=== PATIENT | female | born 2000 | race Caucasian/White ===

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

== ENCOUNTER 2024-10-29 04:30 | Inpatient (IN) ==
--- OUTSIDE RECORDS SUMMARY | 2024-10-29 04:38 | External Medical Summary | Summary of Care ---
Author Name Unknown Organization [facility] Address [address] [place] [address] Phone [phone] Care Team Providers Care Crisis Specialist Name Role Phone Unavailable Primary Care Provider Unavailabl e Reason for Visit * Reason Comments Return Visit [id number] Encounter Details Date Type Department Care Team (Late st Contact Info) Description 10/17/2024 11:45 AM EDT Office Visit Gynecology/Obstetric s [facility] [address] [facility] [place] [address] Nika Carlson CNM [address] [facility] [phone] Supervision of normal first , antepartum*; Antepartum anemia complicating ; Other vitamin B12 deficiency anemia Allergies Active Allergy Reactions Criticality Noted Date Comments Penicillin G Benzathine 04/22/2020 documented as of this encounter (statuses as of 10/17/2024) Medications Proventil HFA 108 (90 Base) MCG/ACT Inhalation Aerosol SolutionIndication s:Upper respiratory tract infection, unspecified type,Viral upper respiratory tract infection with cough Inhale 2 Puffs by mouth every 4 hours as needed for Congestion, Cough or Wheezing. 18 g 05/30/20 22 Active Additional Information Patient not taking.Reported on 10/10/2024 Polyethylene Glycol 3350 17 GM/SCOOP Oral Powder (Miralax) Take 17 g by mouth daily as needed for Constipation. 04/08/20 22 Active 27-0.8 MG Oral Tablet Take 1 Tablet by mouth daily at noon. Active Breast PumpIndications:Nolasco pervision of normal first , antepartum Z39.1 status of mother EDC 11/02/24 1 Each 08/13/19 Active Ondansetron 4 MG Oral Tablet Disintegrating (Zofran)Indication s:Nausea and vomiting, unspecified vomiting type Place 1 Tablet on tongue every 8 hours as needed for Nausea. dissolve on tongue. 20 Tablet 1 08/27/19 25 Active Iron (Ferrous Sulfate) 325 (65 Fe) MG Oral Tablet Take 1 Tablet by mouth in the morning. 90 Tablet 1 08/29/19 25 Active Docusate Sodium 100 MG Oral Capsule (Colace) Take 1 Capsule by mouth in the morning and 1 Capsule before bedtime. 10 Capsule 08/29/19 25 Active Vitamin B-12 1000 MCG Oral Tablet (Cyanocobalamin)In dications:Other vitamin B12 deficiency anemia Take 1 Tablet by mouth in the morning. 30 Tablet 5 10/18/19 25 Active documented as of this encounter (statuses as of 10/17/2024) Active Problems Problem Noted Date Diagnosed Date Absolute anemia 10/17/2024 Iron deficiency anemia 08/30/2024 Antepartum anemia complicating 025 Overview (08/15/2024): Third tri labs Hgb 10.1, ferritin 5 Recommend IV iron Menstrual migraine with status migrainosus, not intractable 07/20/2024 Migraine without aura and wi th status migrainosus, not intractable 07/20/2024 Supervision of normal first , antepartu 04/13/2024 MICHAEL (generalized anxiety disorder) 10/01/2020 Estimated Date of Delivery Comme nts Yes 11/02/2024 Based on Ultraso und documented as of this encounter (statuses as of 10/17/2024) Resolved Problems Problem Noted Date Diagnosed Date Resolved Date Migraine with aura 10/29/2021 Mastitis of left breast unre lated to or 10/20/2018 10/20/2018 Passive smoke exposure 11/23/201310/01 Other allergic rhinitis 11/23/201309/03 Overview (04/26/2017): ICD-10 update of inactive term Routine child health exam 2000 VACCIN FOR DISEASE NEC 08/31/200007/17 documented as of this encounter (statuses as of 10/17/2024) Immunizations Name Administration Dates Next Due DTaP Dipth/Tet/Acell Pertussis (Infanrix), Peds 11/05/2005 H1N1 2009 Influenza, Intranasal 07/08/2009,04/28 HPV Vaccine, 4-Valent 04/23/2013,01/01/2013,10/03 IPV - Polio Virus Vaccine (Inact) 11/05/2005 Influenza Vaccine, Live, Int ranasal, Trivalent (Flumist) 06/13/2012,06/08/2011 MMR - Measles/Mumps/Rubella Vaccine 11/05/2005 Meningococcal B, 2/3-Dose Series (TRUMENBA) 03/2021 Meningococcal Conjugate Vacc ine (Menactra/Menveo) 07/08/2017,10/19/2011 Seasonal Influenza Vac., MDV , IM, 0.5 mL (Fluzone) 04/23/2013,04/28/2009,06/08/2007 Seasonal Influenza, Quadriva lent, No Preserve, IM 04/16/2019 TDAP (age 10 and older)(Boostrix) 10/16/2018 TDAP, Age 7 and older, IM (Adacel) 10/19/2011 Varicella Vaccine (Chicken Pox) 01/30/2009 documented as of this encounter Social History Tobacco Use Types Packs/Day Years Used Date Smoking Tobacco: Never Smokeless Tobacco: Never Alcohol Use Standard Drinks/Week Comments Not Currently 0 (1 standard drink = 0.6 oz pur e alcohol) PHQ-2 Answer Date Recorded PHQ Adult Total Score 0 09/19/2020 Hunger Vital Sign Answer Date Recorded Within the past 12 months, y ou worried that your food would run out before you got the money to buy more. Never true 06/04/20 24 Within the past 12 months, t he food you bought just didn't last and you didn't have money to get more. Never true 06/04/2024 [place] Depression Scale Answer Date Recorded [place] Depression Scale Total 3 09/11/2024 The thought of harming myself has occurred to me . Never 09/11/2024 Childcare Answer Date Recorded Do you feel overwhelmed with taking care of a child, family member or friend? No 06/04/2024 Does your family need help f inding childcare? (Household - for ages 0-17 years) Not on file 06/04/2024 Clothing Answer Date Recorded Have you been unable to get clothing when it was really needed? No 06/04/2024 Is your family able to get c lothes or diapers when needed? (Household - for ages 0-17 years) Not on file 06/04/2024 Personal Safety Answer Date Recorded Do you feel unsafe or have concerns for your saf ety? No 06/04/2024 Do you have concerns for you r family's safety? (Household - for ages 0-17 years) Not on file 06/04/2024 Utilities Answer Date Recorded Do you have trouble paying y our heating, water, or electric bill? No 06/04/2024 Is your family able to pay t he heat, water, or electric bill? (Household - for ages 0-17 years) Not on file 06/04/2024 Does your family have access to good internet? (Household - for ages 0-17 years) Not on file 06/04/2024 Employment Status Answer Date Recorded Are you unemployed or without regular income? No 06/04/2024 Does the household have a re lar source of income? (Household - for ages 0-17 years) Not on file 06/04/2024 Social Connections Answer Date Recorded How often do you feel lonely or isolated from th ose around you? Never 06/04/2024 Financial Resource Strain Answer Date R ecorded Do you have any trouble payi ng for your medications, or do you think you might in the future? No 06/04/2024 Does your family have troubl e paying for medicine? (Household - for ages 0-17 years) Not on file 06/04/2024 Transportation Needs Answer Date Record ed Do you have trouble getting a ride to medical visits or work? (Adult - for ages 18 years and over) Not on file 06/04/2024 Does your family have a hard time getting a ride to doctors visits? (Household - for ages 0-17 years) Not on file 06/04/2024 Has lack of transportation k ept you from medical appointments, meetings, work, or from getting things needed for daily living? Check all that apply. No 06/04/2024 Do you (or your family) have trouble finding or paying for a ride (transportation)? (Household - for ages 0-17 years) Not on file 06/04/2024 Housing Stability Answer Date Recorded Do you currently live in a s helter or have no steady place to sleep at night? No 06/04/2024 Do you think you are at risk of becoming homeless? (Adult - for ages 18 years and over) Not on file 06/04/2024 Does your family worry about paying for your home or becoming homeless? (Household - for ages 0-17 years) Not on file 1 08/05/2023 Are you homeless or worried that you might be in the future? No 06/04/2024 Are you (or your family) xochilt eless or worried that you might be in the future? (Household - for ages 0-17 years) Not on file Food Insecurity Answer Date Recorded Do you need food for this week? No 06/04/2024 Are you able to get enough f ood for your family? (Household - for ages 0-17 years) Not on file 06/04/2024 Does your family need food t his week? (Household - for ages 0-17 years) Not on file 06/04/2024 Do you always have enough fo od for your family? (Household - for ages 0-17 years) Not on file 06/04/2024 Food Insecurity Answer Date Recorded Within the past 12 months, y ou worried that your food would run out before you got the money to buy more. Never true 06/04/20 24 Within the past 12 months, t he food you bought just didn't last and you didn't have money to get more. Never true 06/04/2024 Do you need food for this week? No 06/04/2024 Estimated Date of Delivery Comme nts Yes 11/02/2024 Based on Ultraso und Sex and Gender Information Value Date Recorded Sex Assigned at Female 03/23/2023 11:02 AM EDT Legal Sex Female 5:40 AM EST Gender Identity Female 03/23/2023 11:02 AM EDT Sexual Orientation Straight 11/01/2019 8: 01 AM EDT documented as of this encounter Last Filed Vital Signs Vital Sign Reading Time Taken Comments Blood Pressure 116/62 10/17/2024 11:50 AM EDT Pulse - - Temperature - - Respiratory Rate - - Oxygen Saturation - - Inhaled Oxygen Concentration - - Weight 83.9 kg (185 lb) 10/17/2024 11:50 AM EDT Height 165.1 cm (5' 5") 10/17/2024 11:50 AM EDT Body Mass Index 30.79 10/17/2024 11:50 AM EDT documented in this encounter Progress Notes * Nika Carlson CNM - 10/17/2024 11:45 AM EDT Antonella Charles is a 24 year old female here for her routine OB appointment at 37w5d Her Estimated Date of Delivery: 11/02/24 REVIEW OF SYSTEMS: She affirms movement. Denies vaginal bleeding, LOF, contractions, N/V, headaches GBS negative PHYSICAL EXAM: Filed Vitals: 10/17/24 1150 BP: 116/62 Weight: 83.9 kg (185 lb) Height: 1.651 m (5' 5") ASSESSMENT/PLAN: Supervision of normal first , antepartum (Primary) Antepartum anemia complicating Other vitamin B12 deficiency anemia - Vitamin B-12 1000 MCG Oral Tablet (Cyanocobalamin); Take 1 Tablet by mouth in the morning. Supervision of - Reviewed labs - improved after iron infusion but Vitamin B12 deficiency noted. eRx sent in. - labor precautions and kick counts reviewed - RTO in 1 week Nika Carlson CNM documented in this encounter Nursing Notes * Jeanette Ricketts CMA - 10/17/2024 11:49 AM EDT Chief Complaint Patient presents with Return Visit 37w5d Pt reports no concerns for today documented in this encounter Plan of Treatment Upcoming Encounters Date Type Department Care Team (Late st Contact Info) Description 10/25/2024 10:15 AM EDT Office Visit Gynecology/Obstetrics [facility] [address] [place] [address] Dereje Wright MD [address] [place] [phone] 08/23/2025 9:05 AM EST Telemedicine Neurology [facility] Jorge [facility]TON [address] [facility] [place] [phone] Sandra Srivastava DO [address] [facility] [address] Health Maintenance Due Date Last Done Comments Depression Screening 2012 Meningitis B Vaccine (Bexsero/Trumemba) (2 of 2 - Trumenba SCDM 2-dose series) 08/12/2021 02/09/2021 COVID-19 Vaccine ( season) 2024 Pap Smear 11/26/2024 11/26/2021 Influenza Vaccine (FLU shot) (Season Ended) 2025 04/16/2019, 04/16/2019, 04/23/2013, Additional history exists Gonorrhea / Chlamydia Screen 04/13/202505/2024, 11/26/2021, 04/22/2020, Additional history exists DTap/Tdap Vaccines (8 - Td or Tdap) 10/16/2028 10/16/2018, 10/19/2011, 11/05/2005, Additional history exists Hepatitis B Vaccine Completed 09/20/2001, 2000, 2000 Lipid Panel Completed 10/19/2011 HPV (Gardasil) Vaccine Completed 3, 01/01/2013, 10/30/2012 MENINGOCOCCAL (MENACTRA/MENVEO) Completed 07/08/2017, 10/19/2011 Pneumococcal Vaccine: Pediatrics (0 to 5 Years) and At-Risk Patients (6 to 18 Years and 19+ Years) Aged Out No longer eligib le based on patient's age to complete this topic documented as of this encounter Medical Devices Not on filedocumented as of this encounter Visit Diagnoses Diagnosis Supervision of normal first , antepartum- Primary Antepartum anemia complicating Anemia, antepartum Other vitamin B12 deficiency anemia documented in this encounter
--- OUTSIDE RECORDS SUMMARY | 2024-10-29 04:38 | External Medical Summary | Summary of Care ---
Author Name Unknown Organization [facility] Address [address] [place] [facility] [place] [place] [address] Phone [phone] Care Team Providers Care Oyster Fisherman Name Role Phone Unavailable Primary Care Provider Unavailabl e Reason for Visit * Reason Comments Return Visit Encounter Details Date Type Department Care Team (Late st Contact Info) Description 10/24/2024 2:00 PM EDT Office Visit Gynecology/Obstetric s Karina Fonseca [address] [place] [address] Gay Marin PA-C [address] [place] [address] Supervision of normal first , antepartum*; Antepartum anemia complicating Allergies Active Allergy Reactions Criticality Noted Date Comments Penicillin G Benzathine 04/22/2020 documented as of this encounter (statuses as of 10/24/2024) Medications Proventil HFA 108 (90 Base) MCG/ACT [...] of mother EDC 11/02/24 1 Each 08/13/19 25 Active Ondansetron 4 MG Oral Tablet Disintegrating [...] as of this encounter (statuses as of 10/24/2024) Active Problems Problem Noted Date Diagnosed Date [...] as of this encounter (statuses as of 10/24/2024) Resolved Problems Problem Noted Date Diagnosed Date Resolved Date Migraine with aura 10/29/2021 Mastitis of left breast unre lated to or 10/20/2018 10/20/2018 Passive smoke exposure 11/23/201310/01 Other allergic rhinitis 11/23/201309/03 Overview (04/26/2017): ICD-10 update of inactive term Routine child health exam 2000 VACCIN FOR DISEASE NEC 08/31/200007/17 documented as of this encounter (statuses as of 10/24/2024) Immunizations Name Administration Dates Next Due DTaP [...] money to get more. Never true 06/04/2024 [place] Depression Scale Answer Date Recorded [place] Depression Scale Total 3 09/11/2024 The thought [...] Sign Reading Time Taken Comments Blood Pressure 122/62 10/24/2024 2:00 PM EDT Pulse - - Temperature - - Respiratory Rate - - Oxygen Saturation - - Inhaled Oxygen Concentration - - Weight 84 kg (185 lb 3.2 oz) 10/24/2024 2:00 PM EDT Height - - Body Mass Index 30.82 10/17/2024 11:50 AM EDT documented in this encounter Progress Notes * Gay Marin PA-C - 10/24/2024 2:15 PM EDT 38w5d No complaints. Denies contractions, VB, LOF. Baby is active. Would like cervical check. Uncertain lie -- bedside ultrasound preformed by Nicole DODD confirms cephalic Reviewed postdate IOL, pt does not want to wait until 41 weeks. She is agreeable to postdate 40+ IOL. Scheduled for Labor instructions reviewed. Has number to call. RTC in 1 week Performance Tester Documentation Provider requested transmission operator. Name of transmission operator: TISH West PA-C documented in this encounter Plan of Treatment Upcoming Encounters Date Type Department Care Team (Late st Contact Info) Description 11/01/2024 11:45 AM EDT Office Visit Gynecology/Obstetrics [facility] [address] [place] [address] Nannette Medrano PA-C [address] [place] [address] 08/23/2025 9:05 AM EST Telemedicine Neurology [facility] [place] [address] [facility] [place] [phone] Sandra Srivastava, DO [address] [place] [address] Health Maintenance Due Date Last Done Comments [...] antepartum- Primary Antepartum anemia complicating Anemia, antepartum documented in this encounter
--- OUTSIDE RECORDS SUMMARY | 2024-10-29 04:38 | External Medical Summary | Summary of Care ---
Author Name Unknown Organization [facility] Address [address] [facility] [place] [place] [address] Phone [phone] Care Team Providers Care Skiver Blockers Name Role Phone Unavailable Primary Care Provider Unavailabl e Reason for Visit * Reason Onset Date Comments Return Visit 10/17/2024 1 week Encounter Details Date Type Department Care Team (Late st Contact Info) Description 10/17/2024 Telephone Gynecology/Obstetrics [facility] [address] [facility] [place] [address] Nurse Return Visit (1 week) Allergies Active Allergy Reactions Criticality Noted Date Comments Penicillin G Benzathine 04/22/2020 documented as of this encounter (statuses as of 10/19/2024) Medications Proventil HFA 108 (90 Base) MCG/ACT [...] as of this encounter (statuses as of 10/19/2024) Active Problems Problem Noted Date Diagnosed Date Absolute anemia 10/17/2024 Iron deficiency anemia 08/30/2024 Antepartum anemia complicating 025 Overview (08/15/2024): Third tri labs Hgb 10.1, ferritin 5 Recommend IV iron Menstrual migraine with status migrainosus, not intractable 07/20/2024 Migraine without aura and wi th status migrainosus, not intractable 07/20/2024 Supervision of normal first , antepartu m 04/13/2024 MICHAEL (generalized anxiety disorder) 10/01/2020 Estimated Date of Delivery Comme nts Yes 11/02/2024 Based on Ultraso und documented as of this encounter (statuses as of 10/19/2024) Resolved Problems Problem Noted Date Diagnosed Date Resolved Date Migraine with aura 10/29/2021 Mastitis of left breast unre lated to or 10/20/2018 10/20/2018 Passive smoke exposure 11/23/201310/01 Other allergic rhinitis 11/23/201309/03 Overview (04/26/2017): ICD-10 update of inactive term Routine child health exam 2000 VACCIN FOR DISEASE NEC 08/31/200007/17 documented as of this encounter (statuses as of 10/19/2024) Immunizations Name Administration Dates Next Due DTaP [...] money to get more. Never true 06/04/2024 [place] Depression Scale Answer Date Recorded [place] Depression Scale Total 3 09/11/2024 The thought [...] AM EDT documented as of this encounter Miscellaneous Notes * Telephone Encounter - Edith Flannery OSA - 10/18/2024 12:10 PM EDT I moved pt to 10/24 at 2 PM. Can you let her know? * Telephone Encounter - Heidi Diaz RN - 10/17/2024 4:21 PM EDT Will have Edith review for cancels/ openings * Telephone Encounter - Stephanie Millan OSA - 10/17/2024 2:36 PM EDT We have no other availability next week. Please advise. * Telephone Encounter - Sanjuana Serrano OSA - 10/17/2024 12:18 PM EDT Pt called to schedule her 1 week rpn appt. Please call pt to schedule, there is nothing searching for next week. Please advise. Thank you. documented in this encounter Plan of Treatment Upcoming Encounters Date Type Department Care Team (Late st Contact Info) Description 10/24/2024 2:00 PM EDT Office Visit Gynecology/Obstetrics Karina Fonseca [address] [place] [address] Gay Marin PA-C [address] [place] [address] 08/23/2025 9:05 AM EST Telemedicine Neurology [facility] Jorge [place] [address] [place] [address] Sandra Srivastava, [address] [place] [place] [address] Health Maintenance Due Date Last Done Comments [...]
--- OUTSIDE RECORDS SUMMARY | 2024-10-29 04:38 | External Medical Summary | Summary of Care ---
Author Name Unknown Organization [facility] Address [address] [place] [address] Phone [phone] Care Team Providers Care Ash Conveyor Operator Name Role Phone Unavailable Primary Care Provider Unavailabl e Reason for Visit * Reason Onset Date Comments Anemia Follow-Up 10/17/2024 Encounter Details Date Type Department Care Team (Late st Contact Info) Description 10/12/2024 9:30 AM EDT Pharmacy Pharmacy, [place] [address] [place] [address] Clinic, Anemia [address] [place] [address] Iron deficiency anemia, unspecified iron deficiency anemia type* Allergies Active Allergy Reactions Criticality Noted Date Comments Penicillin G Benzathine 04/22/2020 documented as of this encounter (statuses as of 10/18/2024) Medications Proventil HFA 108 (90 Base) MCG/ACT [...] before bedtime. 10 Capsule 08/29/19 25 Active documented as of this encounter (statuses as of 10/18/2024) Active Problems Problem Noted Date Diagnosed Date [...] as of this encounter (statuses as of 10/18/2024) Resolved Problems Problem Noted Date Diagnosed Date Resolved Date Migraine with aura 10/29/2021 Mastitis of left breast unre lated to or 10/20/2018 10/20/2018 Passive smoke exposure 11/23/201310/01 Other allergic rhinitis 11/23/2013/07/2020 Overview (04/26/2017): ICD-10 update of inactive term Routine child health exam 2000 VACCIN FOR DISEASE NEC 08/31/200007/17 documented as of this encounter (statuses as of 10/18/2024) Immunizations Name Administration Dates Next Due DTaP [...] money to get more. Never true 06/04/2024 [place] Depression Scale Answer Date Recorded [place] Depression Scale Total 3 09/11/2024 The thought [...] 06/04/2024 Does the household have a re gular source of income? (Household - for ages [...] AM EDT documented as of this encounter Progress Notes * Juan Antonio Parada, [facility] - 10/17/2024 1:04 PM EDT Patient Phone Numbers Called patient to review labs from 10/10/24. Hgb: 11.9 g/dL TSAT: 18 % Ferritin: 84 ng/mL B12: <150 pg/mL FA: >20 ng/mL Hgb is within target range. Iron studies below target range. Patient reports feeling tired and otherwise denies changes in medical condition/diagnosis. Patient is taking Ferrous Sulfate 325mg PO daily and is tolerating it without issue. Plan: Add B12 1mg PO daily, OB prescribed, will continue PO ferrous sulfate Answered all questions to patient satisfaction, agreeable to discharge. Anemia clinic to sign off, thank you for allowing us to participate in the care of this patient. Juan Antonio Parada, JimenaD, [facility] Clinical Pharmacist 10/17/2024 3:48 PM Lab Results Component Value Date/Time HGB 11.9 (L) 10/10/2024 09:59 AM HGB 9.5 (L) 09/18/2024 09:03 AM HGB 8.9 (L) 09/11/2024 03:04 PM HGB 12.2 03/27/2001 12:00 AM HGB 12.7 2000 02:46 PM No results found for: "HEMOGLOBIN-OUTSIDE LAB" Results for orders placed or performed in visit on 10/10/24 IRON SCREEN, INCLUDING TIBC Result Value Ref Range Iron 84 33 - 151 ug/dL Iron Binding Capacity 468 (H) 250 - 425 ug/dL Transferrin Saturation Percent 18 15 - 55 % Results for orders placed or performed in visit on 09/18/24 IRON SCREEN, INCLUDING TIBC Result Value Ref Range Iron 118 33 - 151 ug/dL Iron Binding Capacity 458 (H) 250 - 425 ug/dL Transferrin Saturation Percent 26 15 - 55 % Results for orders placed or performed in visit on 08/13/24 IRON SCREEN, INCLUDING TIBC Result Value Ref Range Iron 29 (L) 33 - 151 ug/dL Iron Binding Capacity 613 (H) 250 - 425 ug/dL Transferrin Saturation Percent 5 (L) 15 - 55 % No results found for: "TRANSFERRIN SAT %-OUTSIDE LAB" Lab Results Component Value Date/Time FERRITIN - [facility] 84 10/10/2024 09:59 AM FERRITIN - [facility] 632 (H) 09/18/2024 09:03 AM FERRITIN - [facility] 5 (L) 08/13/2024 09:52 AM No results found for: "FERRITIN-OUTSIDE LAB" documented in this encounter Plan of Treatment Upcoming Encounters Date Type Department Care Team (Late st Contact Info) Description 10/25/2024 10:15 AM EDT Office Visit Gynecology/Obstetrics Karina Fonseca [address] [place] [address] Dereje Wright MD [address] [place] [phone] 08/23/2025 9:05 AM EST Telemedicine Neurology [facility] [place] [address] [place] [address] Sandra Srivastava DO [address] [facility] [place] [address] Health Maintenance Due Date Last Done Comments [...] as of this encounter Visit Diagnoses Diagnosis Iron deficiency anemia, unspecified iron deficiency anemia type- Primary documented in this encounter
--- OUTSIDE RECORDS SUMMARY | 2024-10-29 04:39 | External Medical Summary ---
Author Name Unknown Address Unknown Organization K01:[facility] [address] [place] [address] Laboratory Report Ordering Provider Test Date Status DIAMOND HARRISON 10/10/2024 09:59:25 Final Observation Date Value Abnormality Reference (Units ) Status Ferritin 10/10/2024 09:59:25 84 13-150 (ng /mL) Final Performing Location [facility] [address] [place] [address]
--- OUTSIDE RECORDS SUMMARY | 2024-10-29 04:39 | External Medical Summary ---
Author Name Unknown Address Unknown Organization K01:[facility] [place] [address] [place] [address] Laboratory Report Ordering Provider Test Date Status JUANI CHADWICK 10/10/2024 09:50:03 Final Observation Date Value Abnormality Reference (Units ) Status Streptococcus agalactiae DNA [Presence] in Specimen by YISEL with probe detection 10/10/2024 09:50:03 Negative Negative Final No Group B Streptococcus det ected by culture-enhanced PCR (amplified probe). GBS GBSCT - [facility] 10/10/2024 09:50:03 0.0 Final GBS SPCCT - [facility] 10/10/2024 09:50:03 31.4 Final Performing Location LABORATORY [facility] [place] [place] - [facility] [address] [place] [address]
--- OUTSIDE RECORDS SUMMARY | 2024-10-29 04:39 | External Medical Summary ---
Author Name Unknown Address Unknown Organization K01:[facility] - [address] [place] [address] Laboratory Report Ordering Provider Test Date Status DIAMOND HARRISON 10/10/2024 09:59:25 Final Observation Date Value Abnormality Reference (Units ) Status Folic Acid 10/10/2024 09:59:25 >20.0 >4.5 (ng/ mL) Final Performing Location [facility] - [address] [place] [address]
--- OUTSIDE RECORDS SUMMARY | 2024-10-29 04:39 | External Medical Summary | Summary of Care ---
Author Name Unknown Organization [facility] [address] [place] [address] Phone [phone] Care Team Providers Care Insurance Policy Issue Clerk Name Role Phone Unavailable Primary Care Provider Unavailabl e Reason for Visit * Reason Onset Date Comments TRIAGE 09/20/2024 SP 10 day Encounter Details Date Type Department Care Team (Late st Contact Info) Description 09/20/2024 New Patient Triage (HEALTH AND WELLNESS INSTRUCTOR USE ONLY) Hematology/Oncology, [facility] [address] [place] [address] Jessy Quiroz CRNP [address] [place] [address] TRIAGE (SP 10 day) Allergies Active Allergy Reactions Criticality Noted Date Comments Penicillin G Benzathine 04/22/2020 documented as of this encounter (statuses as of 09/21/2024) Medications Proventil HFA 108 (90 Base) MCG/ACT Inhalation Aerosol SolutionIndication s:Upper respiratory tract infection, unspecified type,Viral upper respiratory tract infection with cough Inhale 2 Puffs by mouth every 4 hours as needed for Congestion, Cough or Wheezing. 18 g 05/30/20 Active Additional Information Patient not taking.Reported on 09/11/2024 Polyethylene Glycol 3350 17 GM/SCOOP Oral Powder (Miralax) Take 17 g by mouth daily as needed for Constipation. 04/08/20 Active 27-0.8 MG Oral Tablet Take 1 [...] as of this encounter (statuses as of 09/21/2024) Active Problems Problem Noted Date Diagnosed Date Iron deficiency anemia 08/30/2024 Antepartum anemia complicating [...] as of this encounter (statuses as of 09/21/2024) Resolved Problems Problem Noted Date Diagnosed Date Resolved Date Migraine with aura 10/29/2021 Mastitis of left breast unre lated to or 10/20/2018 10/20/2018 Passive smoke exposure 11/23/201310/01 Other allergic rhinitis 11/23/201309/03 Overview (04/26/2017): ICD-10 update of inactive term Routine child health exam 2000 VACCIN FOR DISEASE NEC 08/31/200007/17 documented as of this encounter (statuses as of 09/21/2024) Immunizations Name Administration Dates Next Due DTaP [...] money to get more. Never true 06/04/2024 [place] Depression Scale Answer Date Recorded [place] Depression Scale Total 3 09/11/2024 The thought [...] as of this encounter Progress Notes * Jasmin Chavez, TISH - 09/21/2024 6:59 AM EDT Discussed care plan with patient or proxy?: Yes Provider called pt Communicated with patient on Date (mm/rafal/vladimir): 09/20/2024 at Time ([facility]): 1720 Referral not needed. * Jessy Quiroz CRNP - 09/20/2024 5:17 PM EDT Hematology New Referral Triage Note 24 y/o female referred for elevated ferritin. Following with anemia clinic for anemia in .Received dose of Infed on 09/10. Repeat lab work on 09/18 showing ferritin elevated at 632. This is explained by recent iron infusion. Lab work already appropriately rescheduled for 10/11 by anemia clinic. No need for hematology referral at this time. Discussed care plan with patient or proxy?: Yes called patient and provided with reassurance. Patient verbalized understanding. Ok with canceling referral. Communicated with patient on Date (mm/dd/yyyy): 09/20/2024 at Time ([facility]): 1720 JU Betancourt Hematology * Jasmin Chavez LPN - 09/20/2024 1:08 PM EDT Images from the original note were not included. New Patient Triage What is the diagnosis/reason for referral?: Elevated ferritin [R79.89] Enter order ID here: [id number] Specialty specific documentation: Hematology/Oncology NEW PATIENT - HEMATOLOGY/ONCOLOGY SPECIALTY TRIAGE Triage needed?: Yes Referring provider name: Wilson Anthony MD Confirmation of diagnosis: Yes TRIAGE PLAN: Baseline/staging imaging complete: No Labs available: Yes Referral to other specialty recommended (ie. Surgery, outpatient infusion): No Additional triage comments: 33w 6d . Had INFeD 09/10 documented in this encounter Plan of Treatment Upcoming Encounters Date Type Department Care Team (Late st Contact Info) Description 09/26/2024 11:45 AM EDT Office Visit Gynecology/Obstetrics [address] [place] [address] Gay Marin PA-C [address] [place] [address] 10/11/2024 11:30 AM EDT Telemedicine Neurology [facility], Jorge Richards [address] [place] [address] Sandra Srivastava, DO [address] [place] [address] 10/12/2024 9:30 AM EDT Pharmacy Pharmacy, [address] [address] Clinic, [address] [id number] Health Maintenance Due Date Last Done Comments Meningitis B Vaccine (Bexsero/Trumemba) (2 of 2 - Trumenba SCDM 2-dose series) 08/12/2021 02/09/2021 Depression Screening 09/19/2021 09/19/2020 COVID-19 Vaccine ( season) 2024 Influenza Vaccine (FLU shot) (#1) 2024 04/16/2019, 04/16/2019, 04/23/2013, Additional history exists Pap Smear 11/26/2024 11/26/2021 Gonorrhea / Chlamydia Screen 04/13/202505/2024, 11/26/2021, 04/22/2020, [...]
--- OUTSIDE RECORDS SUMMARY | 2024-10-29 04:39 | External Medical Summary | Summary of Care ---
Author Name Unknown Organization [facility] Address [address] [place] [address] Phone [phone] Care Team Providers Care Urgent Care Name Role Phone Unavailable Primary Care Provider Unavailabl e Reason for Visit * Reason Comments Outpatient Testing Encounter Details Date Type Department Care Team (Late st Contact Info) Description 10/10/2024 10:00 AM EDT Laboratory Laboratory, [facility] [address] [facility] [phone] [facility] [address] [place] [address] Fatigue, unspecified type; Antepartum anemia complicating Allergies Active Allergy Reactions Criticality Noted Date Comments Penicillin G Benzathine 04/22/2020 documented as of this encounter (statuses as of 10/10/2024) Medications Proventil HFA 108 (90 Base) MCG/ACT [...] as of this encounter (statuses as of 10/10/2024) Active Problems Problem Noted Date Diagnosed Date [...] as of this encounter (statuses as of 10/10/2024) Resolved Problems Problem Noted Date Diagnosed Date Resolved Date Migraine with aura 10/29/2021 Mastitis of left breast unre lated to or 10/20/2018 10/20/2018 Passive smoke exposure 11/23/201310/01 Other allergic rhinitis 11/23/201309/03 Overview (04/26/2017): ICD-10 update of inactive term Routine child health exam 2000 VACCIN FOR DISEASE NEC 08/31/200007/17 documented as of this encounter (statuses as of 10/10/2024) Immunizations Name Administration Dates Next Due DTaP Dipth/Tet/Acell Pertussis (Infanrix), Peds 11/05/2005 H1N1 2009 Influenza, Intranasal 07/08/2009,04/28 HPV Vaccine, 4-Valent 04/23/2013,01/01/2013,04/03/2013 IPV - Polio Virus Vaccine (Inact) 11/05/2005 [...] money to get more. Never true 06/04/2024 [place] Depression Scale Answer Date Recorded [place] Depression Scale Total 3 09/11/2024 The thought [...] AM EDT documented as of this encounter Plan of Treatment Upcoming Encounters Date Type Department Care Team (Late st Contact Info) Description 10/11/2024 11:30 AM EDT Telemedicine Neurology [facility] Jorge HELTON [address] [place] [address] Sandra Srivastava, DO [address] [place] [address] 10/12/2024 9:30 AM EDT Pharmacy Pharmacy, [place] [address] [place] [address] Clinic, Anemia [address] [place] [address] 10/17/2024 11:45 AM EDT Office Visit Gynecology/Obst[facility]s [facility] [address] [place] [address] Nika Carlson, [facility] [address] [place] [address] Pending Results Name Type Priority Associated Diagnoses Date /Time TSH WITH FREE T4 IF INDICATED Lab Routine Fatigue, unspecified type 10/10/2024 9:59 AM EDT CBC WITH WBC DIFFERENTIAL Lab Routine Fatigue, unspecified type 10/10/2024 9:59 AM EDT IRON SCREEN, INCLUDING TIBC Lab Routine Antepartum anemia complicating 10/10/2024 9:59 AM EDT FERRITIN Lab Routine Antepartum anemia complicating 10/10/2024 9:59 AM EDT RETICULOCYTE PANEL Lab Routine Antepartum anemia complicating 10/10/2024 9:59 AM EDT FOLIC ACID Lab Routine Antepartum anemia complicating 10/10/2024 9:59 AM EDT VITAMIN B12 Lab Routine Antepartum anemia complicating 10/10/2024 9:59 AM EDT CBC Lab Routine Fatigue, unspecified type 10/10/2024 9:59 AM EDT DIFFERENTIAL, AUTOMATED Lab Routine Fatigue, unspecified type 10/10/2024 9:59 AM EDT Health Maintenance Due Date Last Done Comments [...] as of this encounter Visit Diagnoses Diagnosis Fatigue, unspecified type Antepartum anemia complicating Anemia, antepartum documented in this encounter
--- OUTSIDE RECORDS SUMMARY | 2024-10-29 04:39 | External Medical Summary | Summary of Care ---
Author Name Unknown Organization [facility] Address [address] [place] [address] Phone [phone] Care Team Providers Care Hand Polisher Name Role Phone Unavailable Primary Care Provider Unavailabl e Reason for Referral * Evaluate & Treat - Unlimited Visits (Within 10 days (routine)) - Authorized Specialty Diagnoses / Procedures Referred By Orlando t Referred To Contact Hematology/Oncology / Hematology Oncology Diagnoses Antepartum anemia complicating Elevated ferritin Awilda Dowell MD [address] [place] [address] Phone: tel: fax: Referral ID Status Reason Start Date Expiration Date Visits Requested Visits Authorized [id number] Authorized Specialty Services Required 09/20/[phone] Question Answer Referral Priority Within 10 days (routine) Where should this appointment be scheduled? [facility] Reason for Referral Anemia Comments Elevated ferritin levels Encounter Details Date Type Department Care Team (Late st Contact Info) Description 09/20/2024 Telephone Gynecology/Obstetrics [facility] [address] [place] [address] Awilda Dowell MD [address] [place] [address] Allergies Active Allergy Reactions Criticality Noted Date Comments Penicillin G Benzathine 04/22/2020 documented as of this encounter (statuses as of 09/20/2024) Medications Proventil HFA 108 (90 Base) MCG/ACT [...] as of this encounter (statuses as of 09/20/2024) Active Problems Problem Noted Date Diagnosed Date [...] as of this encounter (statuses as of 09/20/2024) Resolved Problems Problem Noted Date Diagnosed Date Resolved Date Migraine with aura 10/29/2021 Mastitis of left breast unre lated to or 10/20/2018 10/20/2018 Passive smoke exposure 11/23/201310/01 Other allergic rhinitis 11/23/201309/03 Overview (04/26/2017): ICD-10 update of inactive term Routine child health exam 2000 VACCIN FOR DISEASE NEC 08/31/200007/17 documented as of this encounter (statuses as of 09/20/2024) Immunizations Name Administration Dates Next Due DTaP [...] money to get more. Never true 06/04/2024 [place] Depression Scale Answer Date Recorded [place] Depression Scale Total 3 09/11/2024 The thought [...] encounter Miscellaneous Notes * Telephone Encounter - Heidi Diaz RN - 09/20/2024 3:16 PM EDT Pt is aware and agreeable. * Telephone Encounter - Awilda Dowell MD - 09/20/2024 12:57 PM EDT Her Ferritin level came back as elevated, most like from IV Iron infusion Recommend hematology referral to plan her iron therapy and f/u for high ferritin levels Thank you documented in this encounter Plan of Treatment Upcoming Encounters Date Type Department Care Team (Late st Contact Info) Description 09/26/2024 11:45 AM EDT Office Visit Gynecology/Obstetrics [facility] [address] [place] [address] Gay Marin PA-C [address] [place] [address] 10/11/2024 11:30 AM EDT [facility]medicine [facility] [address] [facility] [place] [address] Sandra Srivastava, DO [address] [facility] [place] [address] 10/12/2024 9:30 AM EDT Pharmacy Pharmacy, [place] [address] [place] [address] Clinic, [facility] [address] [place] [address] Scheduled Referrals Name Type Priority Associated Diagnoses Orde r Schedule HEMATOLOGY/ONCOLOG Y REFERRAL OP Referral Within 10 days (routine) Antepartum anemia complicating Elevated ferritin Ordered: 09/20/2024 Health Maintenance Due Date Last Done Comments [...] as of this encounter Visit Diagnoses Diagnosis Antepartum anemia complicating - Primary Anemia, antepartum Elevated ferritin Other abnormal blood chemistry documented in this encounter
--- OUTSIDE RECORDS SUMMARY | 2024-10-29 04:39 | External Medical Summary ---
Author Name Unknown Address Unknown Organization [id number]:[facility] [place] - [address] [facility] [address] [place] [address] Laboratory Report Ordering Provider Test Date Status NATANAEL HAYDEN 10/10/2024 09:59:25 Final Observation Date Value Abnormality Reference (Units ) Status TSH 10/10/2024 09:59:25 2.12 0.27-4.20 (uIU/mL) Final Performing Location [facility] - [address] [place] [address]
--- OUTSIDE RECORDS SUMMARY | 2024-10-29 04:39 | External Medical Summary ---
Author Name Unknown Address Unknown Organization [id number]:[facility] [place] - [facility] [place] [address] Laboratory Report Ordering Provider Test Date Status DIAMOND HARRISON 10/10/2024 09:59:25 Final Observation Date Value Abnormality Reference (Units ) Status Retic, % (auto) 10/10/2024 09:59:25 2.17 Above high normal 0.80-1.90 (%) Final Reticulocytes, Absolute 10/10/2024 09:59:25 97.0 31.3-100.1 (K/uL) Final Reticulocyte fraction, immature 10/10/2024 09:59:25 30.4 Above high normal 2.5-20.6 (%) Final Reticulocyte HGB 10/10/2024 09:59:25 31.1 29.7-37.4 (pg) Final Performing Location [facility] - [address] [place] [address]
--- OUTSIDE RECORDS SUMMARY | 2024-10-29 04:39 | External Medical Summary | Summary of Care ---
Author Name Unknown Organization [facility] Address [address] [facility] [place] [address] Phone [phone] Care Team Providers Care Instructor Decorating Name Role Phone Unavailable Primary Care Provider Unavailabl e Reason for Visit * Reason Comments Return Visit Encounter Details Date Type Department Care Team (Late st Contact Info) Description 10/10/2024 9:30 AM EDT Office Visit Gynecology/Obstetric s [facility] [address] [place] [address] Debbie Gutierrez CRNP [address] [place] [address] Supervision of normal first , antepartum*; Antepartum [...] Next Due DTaP Dipth/Tet/Acell Pertussis (Infanrix), Peds 11/05/2005,09/20/2001,2000,10/21,2000 H1N1 2009 Influenza, Intranasal 07/08/2009,04/28 HIB Hep B - HIB Hepatitis B (Comvax) 2000, 2000 HIB PRP-T, 4 Dose, PF, IM (H iberix, ActHib) 09/20/2001 HPV Vaccine, 4-Valent 04/23/2013,01/01/2013,10/03 Hepatitis B, 0-19 yrs 09/20/2001 IPV - Polio Virus Vaccine (Inact) 2005,09/19/2002,2000,08/31 Influenza Vaccine, Live, Int ranasal, Trivalent (Flumist) 06/13/2012,06/08/2011 MMR - Measles/Mumps/Rubella Vaccine 11/05/2005,1 2000 Meningococcal B, 2/3-Dose Se breanne (TRUMENBA) 02/09/2021 Meningococcal Conjugate Vacc ine (Menactra/Menveo) 07/08/2017,10/19/2011 Pneumococcal Conjugate Vacci ne, 7 Valent 09/19/2002,2000,2000,08/31 Seasonal Influenza Vac., MDV , IM, 0.5 mL (Fluzone) 04/23/2013,04/28/2009,06/08/2007 Seasonal Influenza, Quadriva lent, No Preserve, IM 04/16/2019 TDAP (age 10 and older)(Boostrix) 10/16/2018 TDAP, Age 7 and older, IM (Adacel) 10/19/2011 Varicella Vaccine (Chicken Pox) 01/30/2009,06/21 documented as of this encounter Social History [...] money to get more. Never true 06/04/2024 [place] Depression Scale Answer Date Recorded [place] Depression Scale Total 3 09/11/2024 The thought [...] No 06/04/2024 Does the household have a [facility] source of income? (Household - for ages [...] Sign Reading Time Taken Comments Blood Pressure 108/68 10/10/2024 9:37 AM EDT Pulse - - Temperature - - Respiratory Rate - - Oxygen Saturation - - Inhaled Oxygen Concentration - - Weight 82.5 kg (181 lb 12.8 oz) 10/10/2024 9:37 AM EDT Height - - Body Mass Index 30.25 09/26/2024 11:42 AM EDT documented in this encounter Progress Notes * Debbie Gutierrez CRNP - 10/10/2024 9:46 AM EDT 36w5d C/o BLE edema, carpal tunnel sx. Baby is active. Denies contractions, bleeding, LOF. GBS today. Bass Singer Documentation Provider requested spring fitter helper. Name of spring fitter helper: JU Malave * Carlotta White CMA - 10/10/2024 9:37 AM EDT 36w5d GBS today documented in this encounter Plan of Treatment Upcoming Encounters Date Type Department Care Team (Late st Contact Info) Description 10/11/2024 11:30 AM EDT Telemedicine Neurology [facility] [place] [address] [facility] [place] [address] Sandra Srivastava, [address] [place] [address] 10/12/2024 9:30 AM EDT Pharmacy Pharmacy, [place] [address] [place] [address] [facility], [facility] [address] [place] [address] 10/17/2024 11:45 AM EDT Office Visit Gynecology/Obstetrics [facility] [address] [place] [address] Nika Carlson, [facility] [address] [place] [address] Pending Results Name Type Priority Associated Diagnoses Date /Time GROUP B STREP CULTURE/PCR Lab Routine Supervision of normal first , antepartum 10/10/2024 9:50 AM EDT Scheduled Orders Name Type Priority Associated Diagnoses Orde r Schedule GROUP B STREP CULTURE/PCR Lab Routine Supervision of normal first , antepartum Expected: 10/10/2024, Expires: 10/10/2025 Health Maintenance Due Date Last Done Comments [...]
--- OUTSIDE RECORDS SUMMARY | 2024-10-29 04:39 | External Medical Summary | Summary of Care ---
Author Name Unknown Organization [facility] Address [address] [place] [address] Phone [phone] Care Team Providers Care Electric Spot Welder Name Role Phone Unavailable Primary Care Provider Unavailabl e Reason for Visit * Reason Comments Outpatient Testing Encounter Details Date Type Department Care Team (Late st Contact Info) Description 09/18/2024 9:40 AM EDT Laboratory Laboratory, [facility] [address] [facility] [phone] [facility] [address] [place] [address] RUQ pain Allergies Active Allergy Reactions Criticality Noted Date Comments Penicillin G Benzathine 04/22/2020 documented as of this encounter (statuses as of 09/18/2024) Medications Proventil HFA 108 (90 Base) MCG/ACT [...] as of this encounter (statuses as of 09/18/2024) Active Problems Problem Noted Date Diagnosed Date [...] as of this encounter (statuses as of 09/18/2024) Resolved Problems Problem Noted Date Diagnosed Date Resolved Date Migraine with aura 10/29/2021 Mastitis of left breast unre lated to or 10/20/2018 10/20/2018 Passive smoke exposure 11/23/201310/01 Other allergic rhinitis 11/23/2013 03/07/2020 Overview (04/26/2017): ICD-10 update of inactive term Routine child health exam 2000 VACCIN FOR DISEASE NEC 08/31/200007/17 documented as of this encounter (statuses as of 09/18/2024) Immunizations Name Administration Dates Next Due DTaP [...] money to get more. Never true 06/04/2024 [place] Depression Scale Answer Date Recorded [place] Depression Scale Total 3 09/11/2024 The thought [...] 09/26/2024 11:45 AM EDT Office Visit Gynecology/Obstetrics Karina Fonseca [address] [place] [address] Gay Marin PA-C [address] [place] [address] 10/11/2024 11:30 AM EDT Telemedicine Neurology [facility], [place] [address] [facility] [place] [phone] Sandra Srivastava, DO [address] [place] [address] 10/12/2024 9:30 AM EDT Pharmacy Pharmacy, [place] [address] [place] [address] Clinic, [place] [address] [place] [address] Pending Results Name Type Priority Associated Diagnoses Date /Time CBC WITH WBC DIFFERENTIAL AND ANEMIA REFLEX WORKUP Lab Routine RUQ pain 09/18/2024 9:03 AM EDT ANEMIA CBC Lab Routine RUQ pain 09/18/2024 9:03 AM EDT DIFFERENTIAL, AUTOMATED Lab Routine RUQ pain 09/18/2024 9:03 AM EDT ANEMIA REFLEX CHEMISTRY HOLD Lab Routine RUQ pain 09/18/2024 9:03 AM EDT Health Maintenance Due Date Last [...] Hepatitis B Vaccine Completed 09/20/2001, 2000, 2000 HPV (Gardasil) Vaccine Completed 3, 01/01/2013, 10/30/2012 MENINGOCOCCAL (MENACTRA/MENVEO) Completed 07/08/2017, 10/19/2011 Pneumococcal Vaccine: Pediatrics (0 to 5 Years) and At-Risk Patients (6 to 18 Years and 19+ Years) Aged Out No longer eligib le based on patient's age to complete this topic documented as of this encounter Medical Devices Not on filedocumented as of this encounter Visit Diagnoses Diagnosis RUQ pain Abdominal pain, right upper quadrant documented in this encounter
--- OUTSIDE RECORDS SUMMARY | 2024-10-29 04:39 | External Medical Summary | Summary of Care ---
Author Name Unknown Organization [facility] Address [address] [place] [address] Phone [phone] Care Team Providers Care Apiculture Teacher Name Role Phone Unavailable Primary Care Provider Unavailabl e Reason for Visit * Reason Comments Infusion Infed Encounter Details Date Type Department Care Team (Latest Contact Info) Description 09/10/2024 12:15 PM EDT Hem/Onc Treatment Hematology/Oncology Treatment, [place] [address] [place] [address] Emily, Chair 6 Hem Onc [facility] [address] [place] [address] Iron deficiency anemia, unspecified iron deficiency anemia type* Allergies Active Allergy Reactions Criticality Noted Date Comments Penicillin G Benzathine 04/22/2020 documented as of this encounter (statuses as of 10/11/2024) Medications Proventil HFA 108 (90 Base) MCG/ACT Inhalation Aerosol SolutionIndication s:Upper respiratory tract infection, unspecified type,Viral upper respiratory tract infection with cough Inhale 2 Puffs by mouth every 4 hours as needed for Congestion, Cough or Wheezing. 18 g 05/30/20 22 Active Additional Information Patient not taking.Reported on 08/13/2024 Polyethylene Glycol 3350 17 GM/SCOOP Oral Powder [...] as of this encounter (statuses as of 10/11/2024) Active Problems Problem Noted Date Diagnosed Date [...] as of this encounter (statuses as of 10/11/2024) Resolved Problems Problem Noted Date Diagnosed Date Resolved Date Migraine with aura 10/29/2021 Mastitis of left breast unre lated to or 10/20/2018 10/20/2018 Passive smoke exposure 11/23/201310/01 Other allergic rhinitis 11/23/2013 03/07/2020 Overview (04/26/2017): ICD-10 update of inactive term Routine child health exam 2000 VACCIN FOR DISEASE NEC 08/31/200007/17 documented as of this encounter (statuses as of 10/11/2024) Immunizations Name Administration Dates Next Due DTaP [...] money to get more. Never true 06/04/2024 [place] Depression Scale Answer Date Recorded [place] Depression Scale Total 3 09/11/2024 The thought [...] Sign Reading Time Taken Comments Blood Pressure 96/72 09/10/2024 1:23 PM EDT Pulse 91 09/10/2024 1:23 PM EDT Temperature 37 °C (98.6 °F) 09/10/2024 1:23 PM EDT Respiratory Rate 18 09/10/2024 1:23 PM EDT Oxygen Saturation 96% 09/10/2024 1:23 PM EDT Inhaled Oxygen Concentration - - Weight - - Height - - Body Mass Index - - documented in this encounter Nursing Notes * Maame Albrecht RN - 09/10/2024 2:20 PM EDT Patient tolerated treatment without issue. PIV removed intact. Goals: Patient will remain free from injury. Possible barriers to meeting goals: Ambulating with IV pole Stability of the patient: Moderately stable - low risk of patient condition declining or worsening Summary regarding today's goals: Met: Patient remained free from harm. Pt discharged in stable condition. * Maame Albrecht RN - 09/10/2024 12:54 PM EDT Chair 6 Patient here for treatment. Patient oriented to department and schedule of meds. PIV started with brisk blood return. Patient instructed on use of heat in chair. Patient shown how to operate the heat function of the chair and to alert nursing staff if the chair feels too warm. Patient instructed on the risk of potential somers while using the heat function. Safety and Risk for Injury Patient will remain free from injury. Ensure appropriate safety devices are available. Provide and maintain safe environment. documented in this encounter Plan of Treatment Upcoming Encounters Date Type Department Care Team (Late st Contact Info) Description 10/12/2024 9:30 AM EDT Pharmacy Pharmacy, [place] [address] [place] [address] Clinic, [place] [address] [place] [address] 10/17/2024 11:45 AM EDT Office Visit Gynecology/Obstetrics [facility] [address] [facility] [place] [address] Nika Carlson CNM [address] [facility] [place] [phone] Health Maintenance Due Date Last Done Comments Depression Screening 2012 Meningitis B Vaccine (Bexsero/Trumemba) (2 of 2 - Trumenba SCDM 2-dose series) 08/12/2021 02/09/2021 COVID-19 Vaccine ( - season) 2024 Pap Smear 11/26/2024 11/26/2021 Influenza [...] anemia type- Primary documented in this encounter Administered Medications Inactive Administered Medications - up to 3 most recent administrations Medication Order MAR Action Action Date Dose Rate Site Iron Dextran (INFeD) 975 mg in NSS 250 mL INFUSION 975 mg, IV Piggyback, ONCE, 1 dose, On 09/10/24 at 1345, Administer over 1 Hours, - Administer iron dextran infusion bag over 1 hour - Monitor for infusion reactions with vitals at 30 minutes and 60 minutes after starting the infusion. - If patient develops sign/symptoms of reaction or vital signs outside normal limits: 1) STOP infusion 2) CONTACT physicianIndications:Iron deficiency anemia, unspecified iron deficiency anemia type Start Infusion 09/10/2024 12:49 PM EDT 975 mg 274.5 mL/hr Iron Dextran (Infed) IV Push TEST DOSE 25 mg IV Push, Administer over 0.5 Minutes, -Educate patient on signs/symptoms of infusion reaction -Administer 25 mg test dose of iron dextran before infusion bag -Observe patient for signs/symptoms of reaction with vital signs before test dose, then at 15 minutes after administering the test dose -If patient tolerates test dose with no reaction, proceed with iron dextran infusion -HOLD infusion and contact physician immediately if patient reacts to test dose, ONCE, 1 dose, On Tue09/10/24 at 1330Indications:Iron deficiency anemia, unspecified iron deficiency anemia type Given 09/10/2024 12:29 PM EDT 25 mg NSS infusion Intravenous, at 50 mL/hr, PRN, Starting on Tue09/10/24 at 1330, Until Tue09/10/24 at 1821, Maintenance lineIndications:Iron deficiency anemia, unspecified iron deficiency anemia type Start Infusion 09/10/2024 12:29 PM EDT 50 mL/hr documented in this encounter
--- OUTSIDE RECORDS SUMMARY | 2024-10-29 04:39 | External Medical Summary ---
Author Name Unknown Address Unknown Organization K0G:[facility] [address] - [address] [place] [address] Laboratory Report Ordering Provider Test Date Status DEE DIOP 09/18/2024 09:03:29 Final Observation Date Value Abnormality Reference (Units ) Status BUN 09/18/2024 09:03:29 5 Below low normal 6-20 (mg/dL) Final Creatinine 09/18/2024 09:03:29 0.5 0.5-1.0 (mg/dL) Final Glomerular filtration rate/1.73 sq M.predicted [Volume Rate/Area] in Serum, Plasma or Blood by Creatinine-based formula (CKD-EPI) 09/18/2024 09:03:29 >90 >=60 (mL/min) Final eGFR is calculated based on the CKD-EPI 2020 equation. Sodium 09/18/2024 09:03:29 137 135-146 (m mol/L) Final Potassium 09/18/2024 09:03:29 3.8 3.5-5.1 (m mol/L) Final Cl 09/18/2024 09:03:29 102 98-107 (mm ol/L) Final CO2 09/18/2024 09:03:29 23 22-32 (mmo l/L) Final Anion gap 09/18/2024 09:03:29 12 7-15 (mmol /L) Final Glucose 09/18/2024 09:03:29 76 70-120 (mg /dL) Final Albumin 09/18/2024 09:03:29 3.5 Below low normal 3.8 -5.0 (g/dL) Final AST (Aspartate aminotransferase) 09/18/2024 09:03:29 21 10-35 (U/L) Fin al Alk Phos 09/18/2024 09:03:29 109 35-130 (U/ L) Final Bilirubin, Total 09/18/2024 09:03:29 <0.2 <=1 .2 (mg/dL) Final Calcium 09/18/2024 09:03:29 9.5 8.4-10.2 ( mg/dL) Final Protein 09/18/2024 09:03:29 6.1 6.0-8.3 (g /dL) Final ALT (Alanine aminotransferase) 09/18/2024 09:03:29 19 10-35 (U/L) Khari zavala Performing Location [facility] [address] [place] [address]
--- OUTSIDE RECORDS SUMMARY | 2024-10-29 04:39 | External Medical Summary | Summary of Care ---
Author Name Unknown Organization [facility] Address [address] [facility] [address] Phone [phone] Care Team Providers Care Rn Radiation Oncology Name Role Phone Unavailable Primary Care Provider Unavailabl e Reason for Visit * Reason Comments Return Visit Encounter Details Date Type Department Care Team (Late st Contact Info) Description 09/26/2024 11:45 AM EDT Office Visit Gynecology/Obstetric s Karina Fonseca [address] [place] [address] Gay Marin PA-C [address] [place] [address] Supervision of normal first , antepartum*; Antepartum anemia complicating Allergies Active Allergy Reactions Criticality Noted Date Comments Penicillin G Benzathine 04/22/2020 documented as of this encounter (statuses as of 09/26/2024) Medications Proventil HFA 108 (90 Base) MCG/ACT [...] as of this encounter (statuses as of 09/26/2024) Active Problems Problem Noted Date Diagnosed Date [...] as of this encounter (statuses as of 09/26/2024) Resolved Problems Problem Noted Date Diagnosed Date Resolved Date Migraine with aura 10/29/2021 Mastitis of left breast unre lated to or 10/20/2018 10/20/2018 Passive smoke exposure 11/23/201310/01 Other allergic rhinitis 11/23/201309/03 Overview (04/26/2017): ICD-10 update of inactive term Routine child health exam 2000 VACCIN FOR DISEASE NEC 08/31/200007/17 documented as of this encounter (statuses as of 09/26/2024) Immunizations Name Administration Dates Next Due DTaP [...] money to get more. Never true 06/04/2024 [place] Depression Scale Answer Date Recorded [place] Depression Scale Total 3 09/11/2024 The thought [...] Sign Reading Time Taken Comments Blood Pressure 106/68 09/26/2024 11:42 AM EDT Pulse - - Temperature - - Respiratory Rate - - Oxygen Saturation - - Inhaled Oxygen Concentration - - Weight 78.9 kg (174 lb) 09/26/2024 11:42 AM EDT Height 165.1 cm (5' 5") 09/26/2024 11:42 AM EDT Body Mass Index 28.96 09/26/2024 11:42 AM EDT documented in this encounter Progress Notes * Gay Marin PA-C - 09/26/2024 1:21 PM EDT 34w5d Denies VB, LOF, contractions. Pos fm. Has been having epigastric burning for last several weeks. Has had labs which were unremarkable. BPremains normal. Pt states feels related to baby's position. Does get a lot of indigestion for whichtaking TUMS helping a little. Reviewed adding Pepcid QHS. Notify office if worsening. GBS next visit RTC in 2 weeks Gay Marin PA-C documented in this encounter Nursing Notes * Ashley Mcginnis LPN - 09/26/2024 11:48 AM EDT 34w5d Denies concerns Labor instructions documented in this encounter Plan of Treatment Upcoming Encounters Date Type Department Care Team (Late st Contact Info) Description 10/10/2024 9:00 AM EDT Office Visit Gynecology/Obstetrics [facility] [address] [place] [address] Lamar Robles, DNP, CNM [address] [place] [address] 10/11/2024 11:30 AM EDT Telemedicine Neurology [facility], [place] [address] [facility] [place] [phone] Sandra Srivastava DO [address] [place] [address] 10/12/2024 9:30 AM EDT Pharmacy Pharmacy[address] [address] Clinic, [place] [address] [place] [address] Health Maintenance Due Date Last Done Comments Meningitis B Vaccine (Bexsero/Trumemba) (2 of 2 - Trumenba SCDM 2-dose series) 08/12/2021 02/09/2021 Depression Screening 09/19/2021 09/19/2020 COVID-19 Vaccine (1 - season) 2024 Influenza Vaccine (FLU shot) (#1) [...]
--- OUTSIDE RECORDS SUMMARY | 2024-10-29 04:39 | External Medical Summary ---
Author Name Unknown Address Unknown Organization [id number]:[facility] [place] [address] [place] [address] Laboratory Report Ordering Provider Test Date Status NATANAEL HAYDEN 10/10/2024 09:59:25 Final Observation Date Value Abnormality Reference (Units ) Status SYNC LEUKOCYTES IN BLOOD BY AUTOMATED COUNT 10/10/2024 09:59:25 9.87 4.00-10.80 (K/uL) Final Segs 10/10/2024 09:59:25 76.3 Above high normal 40.0-75.0 (%) Final Lymphs % 10/10/2024 09:59:25 15.7 Below low normal 18.0-42.0 (%) Final Monos 10/10/2024 09:59:25 5.9 1.0-11.0 (%) Final Eosinophils 10/10/2024 09:59:25 0.9 0.0-6.0 (%) Final Basos 10/10/2024 09:59:25 0.4 0.0-2.0 (%) Final Immature Granulocyte, Percent 10/10/2024 09:59:25 0.8 0.0-2.0 (%) Final Absolute Segs 10/10/2024 09:59:25 7.53 1.80-7.70 (K/uL) Final Lymphs, absolute 10/10/2024 09:59:25 1.55 1.00-4.80 (K/ul) Final Monos, Abs 10/10/2024 09:59:25 0.58 0.00-1.10 (K/uL) Final Eos, Abs 10/10/2024 09:59:25 0.09 0.00-0.70 (K/uL) Final Basos, Abs 10/10/2024 09:59:25 0.04 0.00-0.20 (K/uL) Final Immature Granulocytes, Number 10/10/2024 09:59:25 0.08 0.00-0.20 (K/uL) Final Performing Location [facility] [place] [facility] [address] [facility] [address]
--- OUTSIDE RECORDS SUMMARY | 2024-10-29 04:39 | External Medical Summary | Summary of Care ---
Author Name Unknown Organization [facility] Address [address] [place] [facility] [place] [address] Phone [phone] Care Team Providers Care Stencil Sprayer Name Role Phone Unavailable Primary Care Provider Unavailabl e Reason for Visit * Reason Comments Return Visit Encounter Details Date Type Department Care Team (Late st Contact Info) Description 10/10/2024 9:30 AM EDT Office Visit Gynecology/Obstetric s [facility] [address] [place] [address] Debbie Gutierrez CRNP [address] [place] [address] Supervision of normal first , antepartum*; Antepartum [...] money to get more. Never true 06/04/2024 [place] Depression Scale Answer Date Recorded [place] Depression Scale Total 3 09/11/2024 The thought [...] No 06/04/2024 Does the household have a [facility] source of income? (Household - for ages [...] active. Denies contractions, bleeding, LOF. GBS today. Observer Helper Documentation Provider requested presser automatic. Name of presser automatic: JU Malave * Carlotta White CMA - 10/10/2024 9:37 AM EDT 36w5d GBS today documented in this encounter Plan of Treatment Upcoming Encounters Date Type Department Care Team (Late st Contact Info) Description 10/11/2024 11:30 AM EDT Telemedicine Neurology [facility] [address] [facility] [place] [address] Sandra Srivastava, [address] [place] [address] 10/12/2024 9:30 AM EDT Pharmacy Pharmacy, [place] [address] [place] [address] [facility], [facility] [address] [place] [address] 10/17/2024 11:45 AM EDT Office Visit Gynecology/Obstetrics [facility] [address] [place] [address] Nika Carlson, [facility] [address] [place] [address] Pending Results Name Type [...]
--- OUTSIDE RECORDS SUMMARY | 2024-10-29 04:39 | External Medical Summary ---
Author Name Unknown Address Unknown Organization [id number]:LABORATORY [facility] [place] [address] - [address] [place] [address] Laboratory Report Ordering Provider Test Date Status DEE DIOP 09/18/2024 09:03:29 Final Observation Date Value Abnormality Reference (Units ) Status WBC, Total 09/18/2024 09:03:29 11.21 Above high normal 4 .00-10.80 (K/uL) Final RBC 09/18/2024 09:03:29 3.71 3.85-5.15 (M/uL) Final Hemoglobin 09/18/2024 09:03:29 9.5 Below low normal 12 .0-15.3 (g/dL) Final Anemia reflex testing trigge rs on a HGB < 12.0 for Females and HGB < 13.0 for Males in accordance with the WHO Anemia Guidelines
Anemia reflex testing triggers on a HGB < 12.0 for Females and HGB < 13.0 for Males in accordance with the WHO Anemia Guidelines HCT 09/18/2024 09:03:29 31.7 Below low normal 36. 0-45.2 (%) Final MCV 09/18/2024 09:03:29 85.4 81.5-97.5 (fL) Final MCH 09/18/2024 09:03:29 25.6 27.0-34.0 (pg) Final MCHC 09/18/2024 09:03:29 30.0 32.0-36.0 (g/dL) Final RDW 09/18/2024 09:03:29 20.9 11.5-15.5 (%) Final Platelets 09/18/2024 09:03:29 165 140-400 (K /uL) Final MPV 09/18/2024 09:03:29 11.3 6.6-11.1 ( fL) Final Performing Location LABORATORY [facility] [place] [address] - [address] [place] [address]
--- OUTSIDE RECORDS SUMMARY | 2024-10-29 04:39 | External Medical Summary ---
Author Name Unknown Address Unknown Organization [id number]:LABORATORY [facility] [place] - [address] [place] [address] Laboratory Report Ordering Provider Test Date Status HUNTERDIAMOND 10/10/2024 09:59:25 Final Observation Date Value Abnormality Reference (Units ) Status Iron 10/10/2024 09:59:25 84 33-151 (ug/dL) Final Iron-binding capacity 10/10/2024 09:59:25 468 Above high normal 250-425 (ug/dL) Final Transferrin Sat % 10/10/2024 09:59:25 18 15-55 (%) Final Performing Location LABORATORY [facility] [place] - [address] [place] [address]
--- OUTSIDE RECORDS SUMMARY | 2024-10-29 04:39 | External Medical Summary | Summary of Care ---
Author Name Unknown Organization [facility] Address [address] [place] [address] Phone [phone] Care Team Providers Care Oil Program Compliance Specialist Name Role Phone Unavailable Primary Care Provider Unavailabl e Encounter Details Date Type Department Care Team (Late st Contact Info) Description 09/18/2024 Telephone Gynecology/Obstetrics [facility] [address] [place] [address] Awilda Dowell MD [address] [place] [address] Allergies Active Allergy Reactions Criticality Noted Date [...] money to get more. Never true 06/04/2024 [place] Depression Scale Answer Date Recorded [place] Depression Scale Total 3 09/11/2024 The thought [...] encounter Miscellaneous Notes * Telephone Encounter - Sonia Houston LPN - 09/18/2024 1:53 PM EDT Patient aware * Telephone Encounter - Sonia Houston LPN - 09/18/2024 1:52 PM EDT ----- Message from Awilda Rachel MD sent at 09/18/2024 1:50 PM EDT ----- Labs are normal except she is anemic Needs to continue with iron therapy Thanks documented in this encounter Plan of Treatment Upcoming Encounters Date Type Department Care Team (Late st Contact Info) Description 09/26/2024 11:45 AM EDT [facility] [address] [place] [address] Gay Marin PA-C [address] [place] [address] 10/11/2024 11:30 AM EDT Telemedicine Neurology [facility] [address] [facility] [place] [address] Sandra Srivastava DO [address] [place] [address] 10/12/2024 9:30 AM EDT Pharmacy Pharmacy, [place] [address] [place] [address] Clinic, [facility] [address] [place] [address] Health Maintenance Due Date Last Done Comments [...]
--- OUTSIDE RECORDS SUMMARY | 2024-10-29 04:39 | External Medical Summary ---
Author Name Unknown Address Unknown Organization [id number]:LABORATORY [facility] [place] - [facility] [address] [facility] [address] [facility] [address] Laboratory Report Ordering Provider Test Date Status NATANAEL HAYDEN 10/10/2024 09:59:25 Final Observation Date Value Abnormality Reference (Units ) Status WBC, Total 10/10/2024 09:59:25 9.87 4.00-10.80 (K/uL) Final RBC 10/10/2024 09:59:25 4.47 3.85-5.15 (M/uL) Final Hemoglobin 10/10/2024 09:59:25 11.9 Below low normal 12.0-15.3 (g/dL) Final HCT 10/10/2024 09:59:25 39.9 36.0-45.2 (%) Final MCV 10/10/2024 09:59:25 89.3 81.5-97.5 (fL) Final MCH 10/10/2024 09:59:25 26.6 27.0-34.0 (pg) Final MCHC 10/10/2024 09:59:25 29.8 32.0-36.0 (g/dL) Final RDW 10/10/2024 09:59:25 24.5 11.5-15.5 (%) Final Platelets 10/10/2024 09:59:25 191 140-400 (K/uL) Final MPV 10/10/2024 09:59:25 11.3 6.6-11.1 (fL) Final Nucleated erythrocytes/100 leukocytes [Ratio] in Blood by Automated count 10/10/2024 09:59:25 0 <=0 (/100 WBCs) Final Performing Location LAB[facility]ORY [facility] [place] [facility] [address] [facility] [address] [facility] [address]
--- OUTSIDE RECORDS SUMMARY | 2024-10-29 04:39 | External Medical Summary | Summary of Care ---
Author Name Unknown Organization [facility] Address [address] [place] [address] Phone [phone] Care Team Providers Care Rf Engineer Name Role Phone Unavailable Primary Care Provider Unavailabl e Reason for Referral * Evaluate & Treat - Unlimited Visits (Within 10 days (routine)) - Authorized Specialty Diagnoses / Procedures Referred By Orlando leonard Referred To Contact Pharmacist / Pharmacy Diagnoses OBED (iron deficiency anemia) Gay Marin PA-C [address] [place] [address] Phone: tel: fax: Referral ID Status Reason Start Date Expiration Date Visits Requested Visits Authorized [id number] Authorized Specialty Services Required 08/16/2024 02/12/2025 99 99 Question Answer Referral Priority Within 10 days (routine) Where should this appointment be scheduled? [facility] Referring Provider Role: Specialist Specialty: emergency operator Reason for Referral: Anemia Comments Pharmacist Medication Therapy Management: Iron deficiency anemia Eliseo Douglass RN Reason for Visit * Reason Onset Date Comments Blood Management Program 08/16/2024 Encounter Details Date Type Department Care Team (Late st Contact Info) Description 08/16/2024 Telephone Patient Blood Management, [place] [address] [place] [address] Gay Marin PA-C [address] [place] [address] Blood Management Program Allergies Active Allergy Reactions Criticality Noted Date Comments Penicillin G Benzathine 04/22/2020 documented as of this encounter (statuses as of 09/24/2024) Medications Proventil HFA 108 (90 Base) MCG/ACT Inhalation Aerosol SolutionIndicat ions:Upper respiratory tract infection, unspecified type,Viral upper respiratory tract infection with cough Inhale 2 Puffs by mouth every 4 hours as needed for Congestion, Cough or Wheezing. 18 g 2 Active Additional Information Patient not taking.Reported on 09/11/2024 Polyethylene Glycol 3350 17 GM/SCOOP Oral Powder (Miralax) Take 17 g by mouth daily as needed for Constipation. 2 Active 27-0.8 MG Oral Tablet Take 1 Tablet by mouth daily at noon. Active Breast PumpIndications :Supervision of normal first , antepartum Z39.1 status of mother EDC 11/02/24 1 Each 5 Active documented as of this encounter (statuses as of 09/24/2024) Active Problems Problem Noted Date Diagnosed Date [...] as of this encounter (statuses as of 09/24/2024) Resolved Problems Problem Noted Date Diagnosed Date Resolved Date Migraine with aura 10/29/2021 2 Mastitis of left breast unre lated to or 10/20/2018 10/20/2018 Passive smoke exposure 11/23/201310/01 Other allergic rhinitis 11/23/201309/03 Overview (04/26/2017): ICD-10 update of inactive term Routine child health exam 2000 VACCIN FOR DISEASE NEC 08/31/200007/17 documented as of this encounter (statuses as of 09/24/2024) Immunizations Name Administration Dates Next Due DTaP [...] money to get more. Never true 06/04/2024 [place] Depression Scale Answer Date Recorded [place] Depression Scale Total 3 09/11/2024 The thought [...] encounter Miscellaneous Notes * Telephone Encounter - Houseknecht, Eliseo M, RN - 08/16/2024 9:03 AM EST Recommend IV iron per OB MTM guidelines. Patient is agreeable to infusion at [facility]. documented in this encounter Plan of Treatment Upcoming Encounters Date Type Department Care Team (Late st Contact Info) Description 09/26/2024 11:45 AM EDT Office Visit Gynecology/Obstetrics [facility] [address] [place] [address] Gay Marin PA-C [address] [place] [address] 10/11/2024 11:30 AM EDT [facility]medicine [facility], Jorge Richards [address] [facility] [place] [address] Sandra Srivastava, [address] [place] [address] 10/12/2024 9:30 AM EDT Pharmacy Pharmacy, [place] [address] [place] [address] Clinic, Anemia [address] [place] [address] Scheduled Referrals Name Type Priority Associated Diagnoses Orde r Schedule PHARMACIST MEDS THERAPY MGMT REFERRAL OP Referral Within 10 days (routine) OBED (iron deficiency anemia) Ordered: 08/16/2024 Health Maintenance Due Date Last Done Comments [...] Panel Completed 10/19/2011 HPV (Gardasil) Vaccine Completed , 01/01/2013, 10/30/2012 MENINGOCOCCAL (MENACTRA/MENVEO) Completed 07/08/2017, 10/19/2011 Pneumococcal Vaccine: Pediatrics (0 to 5 Years) and At-Risk Patients (6 to 18 Years and 19+ Years) Aged Out No longer eligib le based on patient's age to complete this topic documented as of this encounter Medical Devices Not on filedocumented as of this encounter Visit Diagnoses Diagnosis OBED (iron deficiency anemia)- Primary Iron deficiency anemia, unspecified documented in this encounter
--- OUTSIDE RECORDS SUMMARY | 2024-10-29 04:39 | External Medical Summary ---
Author Name Unknown Address Unknown Organization K01:LABORATORY [facility] - [address] [place] [address] Laboratory Report Ordering Provider Test Date Status DIAMOND HARRISON 10/10/2024 09:59:25 Final Observation Date Value Abnormality Reference (Units ) Status Vitamin B12 10/10/2024 09:59:25 <150 Below low normal 2 32-1245 (pg/mL) Final Performing Location LABORATORY [facility] - [address] [place] [address]
--- OUTSIDE RECORDS SUMMARY | 2024-10-29 04:39 | External Medical Summary | Summary of Care ---
Author Name Unknown Organization [facility] Address [address] [facility] [place] [address] Phone [phone] Care Team Providers Care Receiving Operator Name Role Phone Unavailable Primary Care Provider Unavailabl e Reason for Visit * Reason Comments Blood Pressure Check Encounter Details Date Type Department Care Team (Late st Contact Info) Description 09/18/2024 8:30 AM EDT Nurse Only [facility] [address] [place] [address] Gw, Nurse Obgyn Injection [address] [facility] [place] [address] Blood Pressure Check Allergies Active Allergy Reactions Criticality Noted Date [...] smoke exposure 11/23/201310/01 Other allergic rhinitis 11/23/2013 0307/2020 Overview (04/26/2017): ICD-10 update of inactive term [...] money to get more. Never true 06/04/2024 [place] Depression Scale Answer Date Recorded [place] Depression Scale Total 3 09/11/2024 The thought [...] Sign Reading Time Taken Comments Blood Pressure 108/66 09/18/2024 8:51 AM EDT Pulse - - Temperature - - Respiratory Rate - - Oxygen Saturation - - Inhaled Oxygen Concentration - - Weight 76.7 kg (169 lb) 09/18/2024 8:51 AM EDT Height 165.1 cm (5' 5") 09/18/2024 8:51 AM EDT Body Mass Index 28.12 09/18/2024 8:51 AM EDT documented in this encounter Nursing Notes * Ashley Mcginnis LPN - 09/18/2024 8:53 AM EDT Pt presents for bp check per dr fritz, and repeat labs. documented in this encounter Plan of Treatment Upcoming Encounters Date Type Department Care Team (Late st Contact Info) Description 09/26/2024 11:45 AM EDT Office Visit Gynecology/Obstetrics [facility] [address] [place] [address] Gay Marin PA-C [address] [place] [address] 10/11/2024 11:30 AM EDT Telemedicine Neurology [facility] Jorge Richards [address] [facility] [place] [address] Sandra Srivastava, DO [address] [place] [address] 10/12/2024 9:30 AM EDT Pharmacy Pharmacy, [place] [address] [place], [place] [address]22 [facility], [place] [address] [place] [address] Health Maintenance Due Date Last Done Comments Meningitis B Vaccine (Bexsero/Trumemba) (2 of 2 - Trumenba SCDM 2-dose series) 08/12/2021 02/09/2021 Depression Screening 09/19/2021 09/19/2020 COVID-19 Vaccine ( - 2023- season) 2024 Influenza Vaccine (FLU shot) (#1) 2024 04/16/2019, 04/16/2019, 04/23/2013, Additional history exists Pap Smear 11/26/2024 11/26/2021 Gonorrhea / Chlamydia Screen 04/13/202505/2024, 11/26/2021, 04/22/2020, Additional history exists DTap/Tdap Vaccines (8 - Td or Tdap) 10/16/2028 10/16/2018, 10/19/2011, 11/05/2005, Additional history exists Hepatitis B Vaccine Completed 09/20/2001, 2000, 2000 HPV (Gardasil) Vaccine Completed , 01/01/2013, 10/30/2012 [...]
--- OUTSIDE RECORDS SUMMARY | 2024-10-29 04:39 | External Medical Summary ---
Author Name Unknown Address Unknown Organization K01:LABORATORY [facility] [place] - [address] [place] [address] Laboratory Report Ordering Provider Test Date Status DEE DIOPCHELSEA 09/18/2024 09:03:29 Final Observation Date Value Abnormality Reference (Units ) Status Iron 09/18/2024 09:03:29 118 33-151 (ug/dL) Final Iron-binding capacity 09/18/2024 09:03:29 458 Above high normal 250-425 (ug/dL) Final Transferrin Sat % 09/18/2024 09:03:29 26 15-55 (%) Final Performing Location LABORATORY [facility] [place] - [address] [place] [address]
--- OUTSIDE RECORDS SUMMARY | 2024-10-29 04:39 | External Medical Summary ---
Author Name Unknown Address Unknown Organization K01:LABORATORY [place] [address] [place] [address] Laboratory Report Ordering Provider Test Date Status DEE DIOPMiroslava 09/18/2024 09:03:29 Final Observation Date Value Abnormality Reference (Units ) Status Retic, % (auto) 09/18/2024 09:03:29 4.88 Above high normal 0.80-1.90 (%) Final Reticulocytes, Absolute 09/18/2024 09:03:29 183.0 Above high normal 31.3-100.1 (K/uL) Final Reticulocyte fraction, immature 09/18/2024 09:03:29 39.8 Above high normal 2.5-20.6 (%) Final Reticulocyte HGB 09/18/2024 09:03:29 34.0 29.7-37.4 (pg) Final Performing Location LABORATORY [facility] [place] - [facility] [place] [address]
--- OUTSIDE RECORDS SUMMARY | 2024-10-29 04:39 | External Medical Summary ---
Author Name Unknown Address Unknown Organization K01:LABORATORY [facility] - [address] [place] [address] Laboratory Report Ordering Provider Test Date Status DEE DIOP 09/18/2024 09:03:29 Final Observation Date Value Abnormality Reference (Units ) Status Ferritin 09/18/2024 09:03:29 632 Above high normal 13 -150 (ng/mL) Final Performing Location LAB[facility]ATORY [facility] - [address] [place] [address]
--- OUTSIDE RECORDS SUMMARY | 2024-10-29 04:40 | External Medical Summary | Summary of Care ---
Author Name Unknown Organization [facility] Address [address] [facility] [place] [address] Phone [phone] Care Team Providers Care Power Plant Technician Name Role Phone Unavailable Primary Care Provider Unavailabl e Encounter Details Date Type Department Care Team (Late st Contact Info) Description 08/20/2024 Population Health External Data Unspecified Department Allergies Active Allergy Reactions Criticality Noted Date Comments Penicillin G Benzathine 04/22/2020 documented as of this encounter (statuses as of 08/20/2024) Medications Proventil HFA 108 (90 Base) MCG/ACT [...] as of this encounter (statuses as of 08/20/2024) Active Problems Problem Noted Date Diagnosed Date Antepartum anemia complicating 025 Overview (08/15/2024): Third [...] as of this encounter (statuses as of 08/20/2024) Resolved Problems Problem Noted Date Diagnosed Date Resolved Date Migraine with aura 10/29/2021 Mastitis of left breast unre lated to or 10/20/2018 10/20/2018 Passive smoke exposure 11/23/201310/01 Other allergic rhinitis 11/23/201309/03 Overview (04/26/2017): ICD-10 update of inactive term Routine child health exam 2000 VACCIN FOR DISEASE NEC 08/31/200007/17 documented as of this encounter (statuses as of 08/20/2024) Immunizations Name Administration Dates Next Due DTaP [...] money to get more. Never true 06/04/2024 [place] Depression Scale Answer Date Recorded [place] Depression Scale Total 6 04/13/2024 The thought of harming myself has occurred to me . Never 04/13/2024 Childcare Answer Date Recorded Do you feel [...] Care Team (Late st Contact Info) Description 08/27/2024 8:30 AM EST [facility] [address] [place] [address] Nicole Ramirez CRNP [address] [place] [address] 08/27/2024 4:00 PM EST Pharmacy Pharmacy, [place] [address] [place] [address] Clinic, [facility] [address] [place] [address] 10/11/2024 11:30 AM EDT Telemedicine Neurology [facility] [place] [address] [place] [address] Sandra Srivastava DO [address] [place] [address] Health Maintenance Due Date Last Done Comments [...]
--- OUTSIDE RECORDS SUMMARY | 2024-10-29 04:40 | External Medical Summary | Summary of Care ---
Author Name Unknown Organization [facility] Address [address] [place] [address] Phone [phone] Care Team Providers Care Binder Roller Name Role Phone Unavailable Primary Care Provider Unavailabl e Reason for Visit * Reason Onset Date Comments Anemia Follow-Up 08/29/2024 Encounter Details Date Type Department Care Team (Late st Contact Info) Description 08/29/2024 8:30 AM EST Pharmacy Pharmacy, [place] [address] [place] [address] Clinic, Anemia [address] [place], [place] [id number] Iron deficiency anemia, unspecified iron deficiency anemia type* Allergies Active Allergy Reactions Criticality Noted Date Comments Penicillin G Benzathine 04/22/2020 documented as of this encounter (statuses as of 08/29/2024) Medications Proventil HFA 108 (90 Base) MCG/ACT [...] as of this encounter (statuses as of 08/29/2024) Active Problems Problem Noted Date Diagnosed Date [...] as of this encounter (statuses as of 08/29/2024) Resolved Problems Problem Noted Date Diagnosed Date Resolved Date Migraine with aura 10/29/2021 Mastitis of left breast unre lated to or 10/20/2018 10/20/2018 Passive smoke exposure 11/23/201310/01 Other allergic rhinitis 11/23/201309/03 Overview (04/26/2017): ICD-10 update of inactive term Routine child health exam 2000 VACCIN FOR DISEASE NEC 08/31/200007/17 documented as of this encounter (statuses as of 08/29/2024) Immunizations Name Administration Dates Next Due DTaP [...] money to get more. Never true 06/04/2024 [place] Depression Scale Answer Date Recorded [place] Depression Scale Total 6 04/13/2024 The thought [...] encounter Progress Notes * Juan Antonio Parada, [facility] - 08/29/2024 10:36 AM EST Patient Phone Numbers Patient referred by Gay Marin PA-C for evaluation of anemia by the Anemia Clinic. Called patient to introduce role/clinic and to review labs from 08/13/24. LMOVM Hgb: 10.1 g/dL TSAT: 5 % Ferritin: 5 ng/mL GA: 30w5d Estimated Date of Delivery: 11/02/24 Hgb is below target range for the 3rd trimester. Iron studies below target range. Tired, lightheadedness, ALEXANDER, which have worsened recently. Oral iron replenishment inadequate or contraindicated. Patient qualifies for IV iron repletion. Plan: Iron dextran (INFeD) 1000 mg IV x 1 dose at [facility]. Orders placed and routed to appropriate parties. Follow-up labs to be scheduled ~4-6 weeks after iron repletion completed if appropriate prior to delivery. Anemia Clinic will continue to follow. Thank you for allowing us to participate in the care of thispatient. Juan Antonio Parada, PharmD, [facility] Clinical Pharmacist Anemia Clinic P: [phone] F: [phone] 08/29/2024 1:13 PM Lab Results Component Value Date/Time HGB 10.1 (L) 08/13/2024 09:52 AM HGB 12.8 04/13/2024 01:30 PM HGB 12.2 03/27/2001 12:00 AM HGB [...] Results Component Value Date/Time FERRITIN - [facility] 5 (L) 08/13/2024 09:52 AM No results found for: "FERRITIN-OUTSIDE LAB" documented in this encounter Plan of Treatment Upcoming Encounters Date Type Department Care Team (Late st Contact Info) Description 09/03/2024 10:00 AM EST Pharmacy Pharmacy, [place] [address] [place] [address] Clinic, [facility] [address] [place] [address] 09/11/2024 3:00 PM EDT Office Visit Gynecology/Obstetrics [facility] [address] [facility] [place] [address] Debbie Gutierrez CRNP [address] [facility] [place] [address] 10/11/2024 11:30 AM EDT Telemedicine Neurology [facility] [place] [address] [facility] [place] [address] Sandra Srivastava DO [address] [place] [address] Health Maintenance Due Date Last Done Comments [...]
--- OUTSIDE RECORDS SUMMARY | 2024-10-29 04:40 | External Medical Summary | Summary of Care ---
Author Name Unknown Organization [facility] Address [address] [place] [address] Phone [phone] Care Team Providers Care Clay Processing Labourer Name Role Phone Unavailable Primary Care Provider Unavailabl e Reason for Visit * Reason Onset Date Comments Other 08/30/2024 InFed Encounter Details Date Type Department Care Team (Late st Contact Info) Description 08/30/2024 Telephone Hematology/Oncology Treatment, [place] [address] [place] [address] Henrietta Valladares MD [address] [place] [address] Other (InFed) Allergies Active Allergy Reactions Criticality Noted Date Comments Penicillin G Benzathine 04/22/2020 documented as of this encounter (statuses as of 08/31/2024) Medications Proventil HFA 108 (90 Base) MCG/ACT [...] as of this encounter (statuses as of 08/31/2024) Active Problems Problem Noted Date Diagnosed Date [...] as of this encounter (statuses as of 08/31/2024) Resolved Problems Problem Noted Date Diagnosed Date Resolved Date Migraine with aura 10/29/2021 Mastitis of left breast unre lated to or 10/20/2018 10/20/2018 Passive smoke exposure 11/23/201310/01 Other allergic rhinitis 11/23/2013 0307/2020 Overview (04/26/2017): ICD-10 update of inactive term Routine child health exam 2000 VACCIN FOR DISEASE NEC 08/31/200007/17 documented as of this encounter (statuses as of 08/31/2024) Immunizations Name Administration Dates Next Due DTaP [...] money to get more. Never true 06/04/2024 [place] Depression Scale Answer Date Recorded [place] Depression Scale Total 6 04/13/2024 The thought [...] encounter Miscellaneous Notes * Telephone Encounter - Vicki Bhandari OSA - 08/31/2024 10:11 AM EST Pt is scheduled and is aware * Telephone Encounter - Wei Lozada RN - 08/31/2024 10:04 AM EST Scheduling- please call patient to schedule 3HR treatment "Infed" (Jacquelyn). Thanks. * Telephone Encounter - Nicole Marin LPN - 08/30/2024 10:26 AM EST Order received for InFed [place] [phone] No prior authorization needed Awaiting provider signature before scheduling patient. documented in this encounter Plan of Treatment Upcoming Encounters Date Type Department Care Team (Late st Contact Info) Description 09/03/2024 10:00 AM EST Pharmacy Pharmacy, [place] [address] [place] [address] Clinic, Anemia [address] [place] [address] 09/10/2024 12:15 PM EDT Hem/Onc Treatment Hematology/Oncology Treatment, [place] [address] [place] [address] Emily Chair 6 Hem Onc Scen[address] [facility] [address] 09/11/2024 3:00 PM EDT Office Visit Gynecology/Obstetrics [address] [place] [address] Debbie Gutierrez CRNP [address] [place] [address] 10/11/2024 11:30 AM EDT Telemedicine Neurology [facility] [place] [address] [place] [address] Sandra Srivastava, [address] [facility] [address] Health Maintenance Due Date Last Done Comments [...]
--- OUTSIDE RECORDS SUMMARY | 2024-10-29 04:40 | External Medical Summary | Summary of Care ---
Author Name Unknown Organization [facility] Address [address] [place] [address] Phone [phone] Care Team Providers Care Helper Chicken Farm Name Role Phone Unavailable Primary Care Provider Unavailabl e Reason for Visit * Reason Comments Status Check Anemia Follow-Up Encounter Details Date Type Department Care Team (Late st Contact Info) Description 09/12/2024 2:30 PM EDT Pharmacy Pharmacy, [place] [address] [place], [place] [id number] Clinic, Anemia [address] [place] [address] Iron deficiency anemia, unspecified iron deficiency anemia type*; Antepartum anemia complicating Allergies Active Allergy Reactions Criticality Noted Date Comments Penicillin G Benzathine 04/22/2020 documented as of this encounter (statuses as of 09/12/2024) Medications Proventil HFA 108 (90 Base) MCG/ACT [...] as of this encounter (statuses as of 09/12/2024) Active Problems Problem Noted Date Diagnosed Date [...] as of this encounter (statuses as of 09/12/2024) Resolved Problems Problem Noted Date Diagnosed Date Resolved Date Migraine with aura 10/29/2021 Mastitis of left breast unre lated to or 10/20/2018 10/20/2018 Passive smoke exposure 11/23/201310/01 Other allergic rhinitis 11/23/2013 0307/2020 Overview (04/26/2017): ICD-10 update of inactive term Routine child health exam 2000 VACCIN FOR DISEASE NEC 08/31/200007/17 documented as of this encounter (statuses as of 09/12/2024) Immunizations Name Administration Dates Next Due DTaP [...] money to get more. Never true 06/04/2024 [place] Depression Scale Answer Date Recorded [place] Depression Scale Total 3 09/11/2024 The thought [...] as of this encounter Progress Notes * Juli Castellanos [facility] - 09/12/2024 1:36 PM EDT CBCd, ferritin, iron screen, retic panel, B12, FA ordered for 10/11/24. Juli Castellanos, PharmD, BCPS Clinical Pharmacist [facility] Anemia Clinic (P: [phone]) 09/12/2024 1:36 PM * Freida Claros PHARM Tech - 09/12/2024 10:40 AM EDT Patient Phone Numbers Call to patient to schedule labs. No answer, LVM to have labs completed on 10/11 day of Neuro appt. Patient received Infed on 09/10. Labs due on 10/11. GA: 32w5d Estimated Date of Delivery: 11/02/24 Pharmacist - please place appropriate lab orders. Thank you, Freida Claros Wool Sampler [facility] 09/12/2024,10:44 AM documented in this encounter Plan of Treatment Upcoming Encounters Date Type Department Care Team (Late st Contact Info) Description 09/26/2024 11:45 AM EDT Office Visit Gynecology/Obstetrics [facility] [address] [place] [address] Gay Marin PA-C [address] [place] [address] 10/11/2024 11:30 AM EDT Telemedicine Neurology [facility] [place] [address] [facility] [place] [address] Sandra Srivastava, [address] [place] [address] 10/12/2024 9:30 AM EDT Pharmacy Pharmacy, [place] [address] [place] [facility] [place] [address] Clinic, Anemia [address] [facility] [place] [address] Scheduled Orders Name Type Priority Associated Diagnoses Orde r Schedule CBC WITH WBC DIFFERENTIAL Lab Routine Antepartum anemia complicating Expected: 10/11/2024, Expires: 08/15/2025 IRON SCREEN, INCLUDING TIBC Lab Routine Antepartum anemia complicating Expected: 10/11/2024, Expires: 08/15/2025 FERRITIN Lab Routine Antepartum anemia complicating Expected: 10/11/2024, Expires: 08/15/2025 RETICULOCYTE PANEL Lab Routine Antepartum anemia complicating Expected: 10/11/2024, Expires: 08/15/2025 FOLIC ACID Lab Routine Antepartum anemia complicating Expected: 10/11/2024, Expires: 08/15/2025 VITAMIN B12 Lab Routine Antepartum anemia complicating Expected: 10/11/2024, Expires: 08/15/2025 Health Maintenance Due Date Last Done Comments [...] anemia, unspecified iron deficiency anemia type- Primary Antepartum anemia complicating Anemia, antepartum documented in this encounter
--- OUTSIDE RECORDS SUMMARY | 2024-10-29 04:40 | External Medical Summary ---
Author Name Unknown Address Unknown Organization [facility] [address] [place] [address] Laboratory Report Ordering Provider Test Date Status JUANI CHADWICK 09/11/2024 15:04:09 Final Observation Date Value Abnormality Reference (Units ) Status WBC, Total 09/11/2024 15:04:09 13.63 Above high normal 4 .00-10.80 (K/uL) Final RBC 09/11/2024 15:04:09 3.63 3.85-5.15 (M/uL) Final Hemoglobin 09/11/2024 15:04:09 8.9 Below low normal 12 .0-15.3 (g/dL) Final HCT 09/11/2024 15:04:09 29.5 Below low normal 36. 0-45.2 (%) Final MCV 09/11/2024 15:04:09 81.3 81.5-97.5 (fL) Final MCH 09/11/2024 15:04:09 24.5 27.0-34.0 (pg) Final MCHC 09/11/2024 15:04:09 30.2 32.0-36.0 (g/dL) Final RDW 09/11/2024 15:04:09 15.4 11.5-15.5 (%) Final Platelets 09/11/2024 15:04:09 242 140-400 (K /uL) Final MPV 09/11/2024 15:04:09 11.0 6.6-11.1 ( fL) Final Performing Location [facility] [address] [place] [address]
--- OUTSIDE RECORDS SUMMARY | 2024-10-29 04:40 | External Medical Summary ---
Author Name Unknown Address Unknown Organization [facility] [address] - [address] [place] [address] Laboratory Report Ordering Provider Test Date Status DEE DIOP 09/18/2024 09:03:29 Final Observation Date Value Abnormality Reference (Units ) Status SYNC LEUKOCYTES IN BLOOD BY AUTOMATED COUNT 09/18/2024 09:03:29 11.21 Above high normal 4.00-10.80 (K/uL) Final Neutrophils/100 leukocytes in Blood by Manual count 09/18/2024 09:03:29 78.0 Above high normal 40.0-75.0 (%) Final Lymphocytes/100 leukocytes in Blood by Manual count 09/18/2024 09:03:29 16.0 Below low normal 18.0-42.0 (%) Final Monocytes/100 leukocytes in Blood by Manual count 09/18/2024 09:03:29 5.0 1.0-11.0 (%) Final Eosinophils/100 leukocytes in Blood by Manual count 09/18/2024 09:03:29 1.0 0.0-6.0 (%) Final Neutrophils [#/volume] in Blood by Manual count 09/18/2024 09:03:29 8.74 Above high normal 1.80-7.70 (K/uL) Final Lymphocytes [#/volume] in Blood by Manual count 09/18/2024 09:03:29 1.79 1.00-4.80 (K/uL) Final Monocytes [#/volume] in Blood by Manual count 09/18/2024 09:03:29 0.56 0.00-1.10 (K/uL) Final Eosinophils [#/volume] in Blood by Manual count 09/18/2024 09:03:29 0.11 0.00-0.70 (K/uL) Final Nucleated erythrocytes/100 leukocytes [Ratio] in Blood by Automated count 09/18/2024 09:03:29 Final Performing Location [facility] [place] [address] [place] [address]
--- OUTSIDE RECORDS SUMMARY | 2024-10-29 04:40 | External Medical Summary ---
Author Name Unknown Address Unknown Organization [facility] [place] [facility] [address] - [address] [place] [address] Laboratory Report Ordering Provider Test Date Status JUANI CHADWICK 09/11/2024 15:04:09 Final Observation Date Value Abnormality Reference (Units ) Status BUN 09/11/2024 15:04:09 4 Below low normal 6-20 (mg/dL) Final Creatinine 09/11/2024 15:04:09 0.5 0.5-1.0 (mg/dL) Final Glomerular filtration rate/1.73 sq M.predicted [Volume Rate/Area] in Serum, Plasma or Blood by Creatinine-based formula (CKD-EPI) 09/11/2024 15:04:09 >90 >=60 (mL/min) Final eGFR is calculated based on the CKD-EPI 2020 equation. Sodium 09/11/2024 15:04:09 140 135-146 (m mol/L) Final Potassium 09/11/2024 15:04:09 4.0 3.5-5.1 (m mol/L) Final Cl 09/11/2024 15:04:09 104 98-107 (mm ol/L) Final CO2 09/11/2024 15:04:09 24 22-32 (mmo l/L) Final Anion gap 09/11/2024 15:04:09 12 7-15 (mmol /L) Final Glucose 09/11/2024 15:04:09 97 70-120 (mg /dL) Final Albumin 09/11/2024 15:04:09 3.5 Below low normal 3.8 -5.0 (g/dL) Final AST (Aspartate aminotransferase) 09/11/2024 15:04:09 23 10-35 (U/L) Fin al Alk Phos 09/11/2024 15:04:09 109 35-130 (U/ L) Final Bilirubin, Total 09/11/2024 15:04:09 0.3 <=1 .2 (mg/dL) Final Calcium 09/11/2024 15:04:09 9.8 8.4-10.2 ( mg/dL) Final Protein 09/11/2024 15:04:09 6.2 6.0-8.3 (g /dL) Final ALT (Alanine aminotransferase) 09/11/2024 15:04:09 16 10-35 (U/L) Khari zavala Performing Location [facility] [place] [address] [facility] [address]
--- OUTSIDE RECORDS SUMMARY | 2024-10-29 04:40 | External Medical Summary | Summary of Care ---
Author Name Unknown Organization [facility] Address [address] [place] [place] [place] [address] Phone [phone] Care Team Providers Care Veneer Production Machine Operator Name Role Phone Unavailable Primary Care Provider Unavailabl e Reason for Visit * Reason Comments Return Visit Encounter Details Date Type Department Care Team (Late st Contact Info) Description 08/27/2024 8:30 AM EST Office Visit Gynecology/Obstetric s [facility] [address] [place] [address] BackerNicole CRNP [address] [place] [address] Supervision of normal first , antepartum*; Antepartum anemia complicating ; Nausea and vomiting, unspecified vomiting type Allergies Active Allergy Reactions Criticality Noted Date Comments Penicillin G Benzathine 04/22/2020 documented as of this encounter (statuses as of 08/27/2024) Medications Proventil HFA 108 (90 Base) MCG/ACT [...] dissolve on tongue. 20 Tablet 1 08/27/19 Active documented as of this encounter (statuses as of 08/27/2024) Active Problems Problem Noted Date Diagnosed Date [...] as of this encounter (statuses as of 08/27/2024) Resolved Problems Problem Noted Date Diagnosed Date Resolved Date Migraine with aura 10/29/2021 Mastitis of left breast unre lated to or 10/20/2018 10/20/2018 Passive smoke exposure 11/23/201310/01 Other allergic rhinitis 11/23/201309/03 Overview (04/26/2017): ICD-10 update of inactive term Routine child health exam 2000 VACCIN FOR DISEASE NEC 08/31/200007/17 documented as of this encounter (statuses as of 08/27/2024) Immunizations Name Administration Dates Next Due DTaP [...] money to get more. Never true 06/04/2024 [place] Depression Scale Answer Date Recorded [place] Depression Scale Total 6 04/13/2024 The thought [...] Sign Reading Time Taken Comments Blood Pressure 98/58 08/27/2024 8:36 AM EST Pulse - - Temperature - - Respiratory Rate - - Oxygen Saturation - - Inhaled Oxygen Concentration - - Weight 74.4 kg (164 lb) 08/27/2024 8:36 AM EST Height - - Body Mass Index 27.29 05/11/2024 4:33 PM EST documented in this encounter Progress Notes * Nicole Ramirez CRNP - 08/27/2024 8:39 AM EST 30w3d Baby moving well. No ctx, leaking, bleeding. Scheduled to talk w/blood mgmt team today for iron infusions. Notes N/V last few days, diarrhea this AM. Keeping fluids down, low appetite. Rx sent for Zofran, can use OTC Imodium. Call if not keeping fluids down. Discussed [facility] and when to call w/concerns. Recommend childbirth classes. Will likely use [facility] for peds. 2 week return JU Bob * France Marie LPN - 08/27/2024 8:36 AM EST 30w3d Denies vaginal bleeding/rom + movement N&V past couple days documented in this encounter Plan of Treatment Upcoming Encounters Date Type Department Care Team (Late st Contact Info) Description 08/27/2024 4:00 PM EST Pharmacy Pharmacy, [place] [address] [place] [address] Clinic, Anemia [address] [place] [address] 09/11/2024 3:00 PM EDT Office Visit Gynecology/Obstetrics [facility] [address] [facility] [place] [address] Debbie Gutierrez CRNP [address] [place] [address] 10/11/2024 11:30 AM EDT Telemedicine Neurology [facility] [place] [address] [place] [address] Sandra Srivastava DO [address] [facility] [address] Health Maintenance Due Date Last Done Comments [...] antepartum- Primary Antepartum anemia complicating Anemia, antepartum Nausea and vomiting, unspecified vomiting type documented in this encounter
--- OUTSIDE RECORDS SUMMARY | 2024-10-29 04:40 | External Medical Summary | Summary of Care ---
Author Name Unknown Organization [facility] Address [address] [place] [address] Phone [phone] Care Team Providers Care Marine Reporter Name Role Phone Unavailable Primary Care Provider Unavailabl e Reason for Visit * Reason Comments Infusion Infed Encounter Details Date Type Department Care Team (Latest Contact Info) Description 09/10/2024 12:15 PM EDT Hem/Onc Treatment Hematology/Oncology Treatment, [place] [address] [place] [address] Emily, Chair 6 Hem Onc Scenery [address] [place] [address] Iron deficiency anemia, unspecified iron deficiency anemia type* Allergies Active Allergy Reactions Criticality Noted Date Comments Penicillin G Benzathine 04/22/2020 documented as of this encounter (statuses as of 09/10/2024) Medications Proventil HFA 108 (90 Base) MCG/ACT [...] as of this encounter (statuses as of 09/10/2024) Active Problems Problem Noted Date Diagnosed Date [...] as of this encounter (statuses as of 09/10/2024) Resolved Problems Problem Noted Date Diagnosed Date Resolved Date Migraine with aura 10/29/2021 Mastitis of left breast unre lated to or 10/20/2018 10/20/2018 Passive smoke exposure 11/23/201310/01 Other allergic rhinitis 11/23/2013 03/07/2020 Overview (04/26/2017): ICD-10 update of inactive term Routine child health exam 2000 VACCIN FOR DISEASE NEC 08/31/200007/17 documented as of this encounter (statuses as of 09/10/2024) Immunizations Name Administration Dates Next Due DTaP [...] money to get more. Never true 06/04/2024 [place] Depression Scale Answer Date Recorded [place] Depression Scale Total 6 04/13/2024 The thought [...] Care Team (Late st Contact Info) Description 09/11/2024 3:00 PM EDT Office Visit Gynecology/Obstetrics [facility] [address] [place] [address] Debbie Gutierrez CRNP [address] [place] [address] 09/12/2024 2:30 PM EDT Pharmacy Pharmacy, [place] [address] [place] [address] Clinic, [facility] [address] [place] [address] 10/11/2024 11:30 AM EDT Telemedicine Neurology [facility] [place] [address] [place] [address] Sandra Srivastava, [address] [place] [address] Health Maintenance Due Date Last Done Comments [...]
--- OUTSIDE RECORDS SUMMARY | 2024-10-29 04:40 | External Medical Summary | Summary of Care ---
Author Name Unknown Organization [facility] Address [address] [place] [address] Phone [phone] Care Team Providers Care Topographical Drafter Name Role Phone Unavailable Primary Care Provider Unavailabl e Reason for Visit * Reason Onset Date Comments Anemia Follow-Up 08/29/2024 Encounter Details Date Type Department Care Team (Late st Contact Info) Description 08/29/2024 8:30 AM EST Pharmacy Pharmacy, [place] [address] [place] [address] Clinic, Anemia [address] [place], [place] [id number] Iron deficiency anemia, unspecified iron deficiency anemia [...] money to get more. Never true 06/04/2024 [place] Depression Scale Answer Date Recorded [place] Depression Scale Total 6 04/13/2024 The thought [...] encounter Progress Notes * Juan Antonio Parada, [facility] - 08/29/2024 10:36 AM EST Patient Phone [...] 1000 mg IV x 1 dose at [facility]. Orders placed and routed to appropriate parties. Follow-up labs to be scheduled ~4-6 weeks after iron repletion completed if appropriate prior to delivery. Anemia Clinic will continue to follow. Thank you for allowing us to participate in the care of thispatient. Juan Antonio Parada, PharmD, [facility] Clinical Pharmacist Anemia Clinic P: [phone] F: [phone] 08/29/2024 1:13 PM Lab Results Component Value [...] Description 09/03/2024 10:00 AM EST Pharmacy Pharmacy, [place] [address] [place] [address] Clinic, [facility] [address] [place] [address] 09/11/2024 3:00 PM EDT Office Visit Gynecology/Obstetrics [facility] [address] [facility] [place] [address] Debbie Gutierrez CRNP [address] [facility] [address] 10/11/2024 11:30 AM EDT Telemedicine Neurology [facility] [place] [address] [facility] [place] [address] Sandra Srivastava DO [address] [place] [address] Health Maintenance Due Date Last Done Comments [...]
--- OUTSIDE RECORDS SUMMARY | 2024-10-29 04:40 | External Medical Summary | Summary of Care ---
Author Name Unknown Organization [facility] Address [address] [place] [address] Phone [phone] Care Team Providers Care Linen Checker Name Role Phone Unavailable Primary Care Provider Unavailabl e Reason for Visit * Reason Onset Date Comments Returning Call 08/28/2024 Encounter Details Date Type Department Care Team (Late st Contact Info) Description 08/28/2024 Telephone Centralized Clinical Pharmacy Services, Jorge Richards [address] [place] [address] [place] [address] Clinic, Anemia [address] [place] [address] Returning Call Allergies Active Allergy Reactions Criticality Noted Date [...] tongue. 20 Tablet 1 08/27/19 25 Active documented as of this encounter [...] money to get more. Never true 06/04/2024 [place] Depression Scale Answer Date Recorded [place] Depression Scale Total 6 04/13/2024 The thought [...] No 06/04/2024 [facility] the [facility] have a [facility]? (Household - for ages [...] encounter Miscellaneous Notes * Telephone Encounter - Christopher Gonsales CPhT - 08/28/2024 8:42 AM EST Caller's name: Antonella Charles Preferred call back number(OFFICE NUMBER FOR ): [phone] Reason for call: patient calling to speak with the Anemia clinic stating she did not receive any message from yesterday. Thank you, Christopher Gonsales CPhT Surgical Coder II [facility] Services ([facility]) 08/28/2024,8:42 AM documented in this encounter Plan of Treatment Upcoming Encounters Date Type Department Care Team (Late st Contact Info) Description 09/03/2024 4:00 PM EST Pharmacy Pharmacy, [place] [address] [place] [address] Clinic, [facility] [address] [place] [address] 09/11/2024 3:00 PM EDT Office Visit Gynecology/Obstetrics Karina Fonseca [address] [facility] [place] [address] Debbie Gutierrez CRNP [address] [facility] [place] [address] 10/11/2024 11:30 AM EDT Telemedicine Neurology [facility] DANIE, Jorge Richards [address] [facility] [place] [address] Sandra Srivastava DO [address] [place] [address] Health Maintenance Due Date Last Done Comments [...]
--- OUTSIDE RECORDS SUMMARY | 2024-10-29 04:40 | External Medical Summary | Summary of Care ---
Author Name Unknown Organization [facility] Address [address] [place] [address] Phone [phone] Care Team Providers Care Electrical & Instrumentation Supervisor Name Role Phone Unavailable Primary Care Provider Unavailabl e Reason for Visit * Reason Comments Dosage Adjustment Via Phone (anticoag Cl inic) Anemia Follow-Up * Evaluate & Treat - Unlimited Visits (Within 10 days (routine)) - Authorized Specialty Diagnoses / Procedures Referred By Controselyn t Referred To Contact Pharmacist / Pharmacy Diagnoses OBED (iron deficiency anemia) Gay Marin PA-C [address] [place] [address] Phone: tel: fax: Referral ID Status Reason Start Date Expiration Date Visits Requested Visits Authorized [id number] Authorized Specialty Services Required 08/16/2024 02/12/2025 99 99 Encounter Details Date Type Department Care Team (Late st Contact Info) Description 08/27/2024 4:00 PM [facility] Pharmacy Pharmacy, [place] [address] [place], [place] [id number] Clinic, Anemia [address] [place], [place] [id number] Iron deficiency anemia, unspecified iron deficiency anemia type* Allergies Active Allergy Reactions Criticality Noted Date Comments Penicillin G Benzathine 04/22/2020 documented as of this encounter (statuses as of 08/28/2024) Medications Proventil HFA 108 (90 Base) MCG/ACT [...] as of this encounter (statuses as of 08/28/2024) Active Problems Problem Noted Date Diagnosed Date [...] as of this encounter (statuses as of 08/28/2024) Resolved Problems Problem Noted Date Diagnosed Date Resolved Date Migraine with aura 10/29/2021 Mastitis of left breast unre lated to or 10/20/2018 10/20/2018 Passive smoke exposure 11/23/201310/01 Other allergic rhinitis 11/23/2013/07/2020 Overview (04/26/2017): ICD-10 update of inactive term Routine child health exam 2000 VACCIN FOR DISEASE NEC 08/31/200007/17 documented as of this encounter (statuses as of 08/28/2024) Immunizations Name Administration Dates Next Due DTaP [...] money to get more. Never true 06/04/2024 [place] Depression Scale Answer Date Recorded [place] Depression Scale Total 6 04/13/2024 The thought [...] No 06/04/2024 Does the household have a [facility] source of income? (Household - for ages [...] as of this encounter Progress Notes * Mike Carter, [facility] - 08/27/2024 3:33 PM EST Patient Phone Numbers Patient referred by gay marin PA-C for evaluation of anemia by the Anemia Clinic. Called patient to introduce role/clinic and to review labs from 08/13/24. LMOVM Hgb: 10.1 g/dL TSAT: 5 % Ferritin: 5 ng/mL GA: 30w3d Estimated Date of Delivery: 11/02/24 Hgb is below target range for the 3rd trimester. Iron studies below target range. Oral iron replenishment inadequate or contraindicated. Patient qualifies for IV iron repletion. Tentative Plan: Iron dextran (INFeD) 1000 mg IV x 1 dose. Orders placed and routed to appropriate parties. Follow-up labs to be scheduled ~4-6 weeks after iron repletion completed if appropriate prior to delivery. Anemia Clinic will continue to follow. Thank you for allowing us to participate in the care of thispatient. Mike Carter, PharmD Clinical Pharmacist [facility] Anemia Clinic (P: [phone]) 08/27/2024 3:34 PM documented in this encounter Plan of Treatment Upcoming Encounters Date Type Department Care Team (Late st Contact Info) Description 09/03/2024 4:00 PM EST Pharmacy Pharmacy, [address] [address] Clinic, Anemia [address] [place] [address] 09/11/2024 3:00 PM EDT Office Visit Gynecology/Obstetrics [facility] [address] [place] [address] Debbie Gutierrez CRNP [address] [place] [address] 10/11/2024 11:30 AM EDT Telemedicine Neurology GW[facility] Jorge [place] [facility] [place] [address] Sandra Srivastava DO [address] [place] [address] Scheduled Referrals Name Type Priority Associated Diagnoses [...] and 19+ Years) Aged Out No longer pedro camara based on patient's age to complete this topic documented as of this encounter Medical Devices Not on filedocumented as of this encounter Visit Diagnoses Diagnosis Iron deficiency anemia, unspecified iron deficiency anemia type- Primary documented in this encounter
--- OUTSIDE RECORDS SUMMARY | 2024-10-29 04:40 | External Medical Summary | Summary of Care ---
Author Name Unknown Organization [facility] Address [address] [place] [address] Phone [phone] Care Team Providers Care Director Of Research Name Role Phone Unavailable Primary Care Provider Unavailabl e Encounter Details Date Type Department Care Team (Late st Contact Info) Description 08/31/2024 Orders Only Pharmacy, [place] [address] [place] [address] [facility] [address] [place] [address] Allergies Active Allergy Reactions Criticality Noted Date [...] money to get more. Never true 06/04/2024 [place] Depression Scale Answer Date Recorded [place] Depression Scale Total 6 04/13/2024 The thought [...] No 06/04/2024 Does the household have a [facility] source [facility] income? (Household - for ages [...] Description 09/03/2024 10:00 AM EST Pharmacy Pharmacy, [place] [address] [facility] [address] Clinic, [place] [address] [address] [facility] [address] 09/11/2024 3:00 PM EDT Office Visit Gynecology/Obstetrics [facility] [address] [place] [address] Debbie Gutierrez CRNP [address] [place] [address] 10/11/2024 11:30 AM EDT Telemedicine Neurology GWV DANIE Jorge Richards [address] [place] [address] Sandra Srivastava, [address] [place] [address] Health Maintenance Due Date Last Done Comments [...]
--- OUTSIDE RECORDS SUMMARY | 2024-10-29 04:40 | External Medical Summary | Summary of Care ---
Author Name Unknown Organization [facility] Address [address] [place] [facility] [place] [place] [address] Phone [phone] Care Team Providers Care Electronic News Gathering Editor Name Role Phone Unavailable Primary Care Provider Unavailabl e Reason for Visit * Reason Comments Return Visit Encounter Details Date Type Department Care Team (Late st Contact Info) Description 09/11/2024 3:00 PM EDT Office Visit Gynecology/Obstetric s [place]ousufkaiely Fonseca [address] [place] [address] Debbie Gutierrez CRNP [address] [place] [address] Supervision of normal first , antepartum*; Antepartum anemia complicating Allergies Active Allergy Reactions Criticality Noted Date Comments Penicillin G Benzathine 04/22/2020 documented as of this encounter (statuses as of 09/11/2024) Medications Proventil HFA 108 (90 Base) MCG/ACT [...] as of this encounter (statuses as of 09/11/2024) Active Problems Problem Noted Date Diagnosed Date [...] as of this encounter (statuses as of 09/11/2024) Resolved Problems Problem Noted Date Diagnosed Date Resolved Date Migraine with aura 10/29/2021 Mastitis of left breast unre lated to or 10/20/2018 10/20/2018 Passive smoke exposure 11/23/201310/01 Other allergic rhinitis 11/23/201309/03 Overview (04/26/2017): ICD-10 update of inactive term Routine child health exam 2000 VACCIN FOR DISEASE NEC 08/31/200007/17 documented as of this encounter (statuses as of 09/11/2024) Immunizations Name Administration Dates Next Due DTaP [...] money to get more. Never true 06/04/2024 [place] Depression Scale Answer Date Recorded [place] Depression Scale Total 3 09/11/2024 The thought [...] Sign Reading Time Taken Comments Blood Pressure 104/62 09/11/2024 2:46 PM EDT Pulse - - Temperature - - Respiratory Rate - - Oxygen Saturation - - Inhaled Oxygen Concentration - - Weight 76.4 kg (168 lb 6.4 oz) 09/11/2024 2:46 P M EDT Height - - Body Mass Index 28.02 05/11/2024 4:33 PM EST documented in this encounter Progress Notes * Debbie Gutierrez CRNP - 09/11/2024 2:57 PM EDT 32w4d Has had LUQ pain and itching for 4 days. Area is high, near bottom of ribs. No rash visible. No changes to soaps or detergents. Bowels moving as good as they usually do. Denies epigastric pain. No n/v. CBC, CMP ordered for evaluation. Suggested some lotion and hydrocortisone for itching. Had iron infusion yesterday. Return in 2 weeks. JU Chapman * Carlotta White CMA - 09/11/2024 2:46 PM EDT 32w4d Upper left sided pain for 4 days. Burning/comfortable and itching on the outside documented in this encounter Plan of Treatment Upcoming Encounters Date Type Department Care Team (Late st Contact Info) Description 09/12/2024 2:30 PM EDT Pharmacy Pharmacy, [place] [address] [place] [address] Clinic, [facility] [address] [place] [address] 10/11/2024 11:30 AM EDT Telemedicine Neurology GWV Jorge [place] [address] [facility] [place] [address] Sandra Srivastava DO [address] [place] [address] Health Maintenance Due Date Last Done Comments Meningitis B Vaccine (Bexsero/Trumemba) (2 of 2 - Trumenba SCDM 2-dose series) 08/12/2021 02/09/2021 Depression Screening 09/19/2021 09/19/2020 COVID-19 Vaccine (1 - 4-25 season) 2024 Influenza Vaccine (FLU shot) (#1) [...] Not on filedocumented as of this encounter Procedures Procedure Name Priority Date/Time Associated Diagnosis Comments COMPREHENSIVE METABOLIC PANEL Routine 09/11/2024 3:04 PM EDT Supervision of normal first , antepartum CBC Routine 09/11/2024 3:04 PM EDT Supervision of normal first , antepartum documented in this encounter Results * (ABNORMAL) CBC (09/11/2024 3:04 PM EDT) WBC 13.63(H) 4.00 - 10.80 K/uL 09/11/2024 3:19 PM EDT [facility] 57-10 RBC 3.63 3.85 - 5.15 M/uL 09/11/2024 3:19 PM EDT [facility] [place] [facility] 57-10 HGB 8.9(L) 12.0 - 15.3 g/dL 09/11/2024 3:19 PM EDT [facility] [place] [facility] 57-10 HCT 29.5(L) 36.0 - 45.2 % 09/11/2024 3:19 PM EDT [facility] [place] 57-10 MCV 81.3 81.5 - 97.5 fL 09/11/2024 3:19 PM EDT [facility] [place] 57-10 MCH 24.5 27.0 - 34.0 pg 09/11/2024 3:19 PM EDT [facility] [place] 57-10 MCHC 30.2 32.0 - 36.0 g/dL 09/11/2024 3:19 PM EDT [facility] [place] 57-10 RDW 15.4 11.5 - 15.5 % 09/11/2024 3:19 PM EDT [facility] [place] 57-10 PLT 242 140 - 400 K/uL 09/11/2024 3:19 PM EDT [facility] [place] 57-10 MPV 11.0 6.6 - 11.1 fL 09/11/2024 3:19 PM EDT [facility] [place] 57-10 Blood Venous blood specimen / Unknown Venipuncture / Unknown 09/11/2024 3:04 PM EDT 09/11/2024 3:04 PM EDT us Debbie VIDALNP LAB BLOOD ORDERABLES Final Re sult [facility] [place] [address] [address] * (ABNORMAL) COMPREHENSIVE METABOLIC PANEL (09/11/2024 3:04 PM EDT) BUN 4(L) 6 - 20 mg/dL 09/11/2024 4:20 PM EDT [facility] [place] 57-10 CREATININE 0.5 0.5 - 1.0 mg/dL 09/11/2024 4:20 PM EDT [facility] [place] 57-10 EGFR >90 >=60 mL/min 09/11/2024 4:20 PM EDT [facility] [place] 57-10 Comment:eGFR is calculated b ased on the CKD-EPI 2020 equation. SODIUM 140 135 - 146 mmol/L 09/11/2024 4:20 PM EDT [facility] 57-10 POTASSIUM 4.0 3.5 - 5.1 mmol/L 09/11/2024 4:20 PM EDT [facility] 57-10 CHLORIDE 104 98 - 107 mmol/L 09/11/2024 4:[address] [facility] CO2 24 22 - 32 mmol/L 09/11/2024 4:[address] [facility] ANION GAP 12 7 - 15 mmol/L 09/11/2024 4:20 PM EDT [facility] [place] 57-10 GLUCOSE 97 70 - 120 mg/dL 09/11/2024 4:[address] [facility] Albumin 3.5(L) 3.8 - 5.0 g/dL 09/11/2024 4:20 PM EDT [facility] AST 23 10 - 35 U/L 09/11/2024 4:20 PM EDT [facility]10 Alkaline Phosphatase 109 35 - 130 U/L 09/11/2024 4:[address] [facility] Bilirubin, Total 0.3 <=1.2 mg/dL 09/11/2024 4:20 PM EDT [facility] 57-10 CALCIUM 9.8 8.4 - 10.2 mg/dL 09/11/2024 4:[address] [facility] Protein 6.2 6.0 - 8.3 g/dL 09/11/2024 4:[address] [facility] ALT 16 10 - 35 U/L 09/11/2024 4:[address] [facility] Blood Venous blood specimen / Unknown Venipuncture / Unknown 09/11/2024 3:04 PM EDT 09/11/2024 3:04 PM EDT us Debbie DODD LAB BLOOD ORDERABLES Final Re sult [facility] 57-10 [address] [place] [address] documented in this encounter Visit Diagnoses Diagnosis Supervision of normal first , antepartum- Primary Antepartum anemia complicating Anemia, antepartum documented in this encounter
--- OUTSIDE RECORDS SUMMARY | 2024-10-29 04:40 | External Medical Summary | Summary of Care ---
Author Name Unknown Organization [facility] Address [address] [place] [address] Phone [phone] Care Team Providers Care Network Support Technician Name Role Phone Unavailable Primary Care Provider Unavailabl e Reason for Visit * Reason Onset Date Comments Other 08/30/2024 InFed Encounter Details Date Type Department Care Team (Late st Contact Info) Description 08/30/2024 Telephone Hematology/Oncology Treatment, [place] [address] [place] [address] Henrietta Valladares MD [address] [place] [address] Other (InFed) Allergies Active Allergy Reactions Criticality Noted Date Comments Penicillin G Benzathine 04/22/2020 documented as of this encounter (statuses as of 08/30/2024) Medications Proventil HFA 108 (90 Base) MCG/ACT [...] as of this encounter (statuses as of 08/30/2024) Active Problems Problem Noted Date Diagnosed Date [...] as of this encounter (statuses as of 08/30/2024) Resolved Problems Problem Noted Date Diagnosed Date Resolved Date Migraine with aura 10/29/2021 Mastitis of left breast unre lated to or 10/20/2018 10/20/2018 Passive smoke exposure 11/23/201310/01 Other allergic rhinitis 11/23/2013 03/07/2020 Overview (04/26/2017): ICD-10 update of inactive term Routine child health exam 2000 VACCIN FOR DISEASE NEC 08/31/200007/17 documented as of this encounter (statuses as of 08/30/2024) Immunizations Name Administration Dates Next Due DTaP [...] money to get more. Never true 06/04/2024 [place] Depression Scale Answer Date Recorded [place] Depression Scale Total 6 04/13/2024 The thought [...] encounter Miscellaneous Notes * Telephone Encounter - Nicole Marin LPN - 08/30/2024 10:26 AM EST Order received for InFed [place] [phone] No prior authorization needed Awaiting provider signature before scheduling patient. documented in this encounter Plan of Treatment Upcoming Encounters Date Type Department Care Team (Late st Contact Info) Description 09/03/2024 10:00 AM EST Pharmacy Pharmacy, [place] [address] [place] [address] Clinic, [facility] [address] [facility] [place] [address] 09/11/2024 3:00 PM EDT Office Visit Gynecology/Obstetrics [place] [facility] [address] [place] [address] Debbie Gutierrez CRNP [address] [place] [address] 10/11/2024 11:30 AM EDT Telemedicine Neurology [facility] Jorge [place] [address] [facility] [place] [address] Sandra Srivastava DO [address] [place] [address] Health Maintenance Due Date Last Done Comments [...]
--- OUTSIDE RECORDS SUMMARY | 2024-10-29 04:40 | External Medical Summary | Summary of Care ---
Author Name Unknown Organization [facility] Address [address] [place] [address] Phone [phone] Care Team Providers Care Flavoring Machine Operator Name Role Phone Unavailable Primary Care Provider Unavailabl e Reason for Visit * Reason Onset Date Comments Other 08/30/2024 InFed Encounter Details Date Type Department Care Team (Late st Contact Info) Description 08/30/2024 Telephone Hematology/Oncology Treatment, [place] [address] [place] [address] Henrietta Valladares MD [address] [place] [address] Other (InFed) Allergies Active Allergy Reactions [...] money to get more. Never true 06/04/2024 [place] Depression Scale Answer Date Recorded [place] Depression Scale Total 6 04/13/2024 The thought [...] 10:26 AM EST Order received for InFed [place] [phone] No prior authorization needed Awaiting provider signature before scheduling patient. documented in this encounter Plan of Treatment Upcoming Encounters Date Type Department Care Team (Late st Contact Info) Description 09/03/2024 10:00 AM EST Pharmacy Pharmacy, [place] [address] [place] [address] Clinic, An[facility] [address] [place] [address] 09/10/2024 12:15 PM EDT Hem/Onc Treatment Hematology/Oncology Treatment, [place] [address] [place] [address] Emily Chair 6 Hem On[address] [facility] [address] 09/11/2024 3:00 PM EDT Office Visit Gynecology/Obstetrics [address] [place] [address] Debbie Gutierrez CRNP [address] [place] [address] 10/11/2024 11:30 AM EDT Telemedicine Neurology [facility] Jorge [place] [address] [place] [phone] Sandra Srivastava, [address] [facility] [address] Health Maintenance Due Date Last Done Comments [...]
--- OUTSIDE RECORDS SUMMARY | 2024-10-29 04:40 | External Medical Summary | Summary of Care ---
Author Name Unknown Organization [facility] Address [address] [place] [address] Phone [phone] Care Team Providers Care Woods Overseer Name Role Phone Unavailable Primary Care Provider Unavailabl e Reason for Visit * Reason Comments Outpatient Testing Encounter Details Date Type Department Care Team (Late st Contact Info) Description 09/11/2024 3:20 PM EDT Laboratory Laboratory, [facility] [address] [place] [phone] [facility] [address] [place] [address] Arrived Allergies Active Allergy Reactions Criticality Noted Date [...] money to get more. Never true 06/04/2024 [place] Depression Scale Answer Date Recorded [place] Depression Scale Total 3 09/11/2024 The thought [...] Description 09/12/2024 2:30 PM EDT Pharmacy Pharmacy, [address] [address] 10/11/2024 11:30 AM EDT Telemedicine Neurology GWV DANIE, Jorge Richards [address] [facility] [place] [address] Sandra Srivastava, [address] [facility] [place] [address] Health Maintenance Due Date Last Done Comments [...]
--- OUTSIDE RECORDS SUMMARY | 2024-10-29 04:41 | External Medical Summary | Summary of Care ---
Author Name Unknown Organization [facility] Address [address] [address] Phone [phone] Care Team Providers Care Regional Agronomist Name Role Phone Unavailable Primary Care Provider Unavailabl e Reason for Visit * Reason Comments Return Visit Encounter Details Date Type Department Care Team (Late st Contact Info) Description 07/16/2024 7:45 AM EST Office Visit Gynecology/Obstetric s Karina Fonseca [address] [place] [address] Gay Marin PA-C [address] [place] [address] Supervision of normal first , antepartum* Allergies Active Allergy Reactions Criticality Noted Date Comments Penicillin G Benzathine 04/22/2020 documented as of this encounter (statuses as of 07/16/2024) Medications Proventil HFA 108 (90 Base) MCG/ACT Inhalation Aerosol SolutionIndicati ons:Upper respiratory tract infection, unspecified type,Viral upper respiratory tract infection with cough Inhale 2 Puffs by mouth every 4 hours as needed for Congestion, Cough or Wheezing. 18 g 2 Active Additional Information Patient not taking.Reported on 06/18/2024 Polyethylene Glycol 3350 17 GM/SCOOP Oral Powder (Miralax) Take 17 g by mouth daily as needed for Constipation. 2 Active SUMAtriptan Succinate 100 MG Oral TabletIndication s:Migraine variant TAKE 1 TABLET AT ONSET OF HEADACHE, MAY REPEAT IN 2HOURS MAX DAILY DOSE OF 2 9 Tablet 2 4 Active Additional Information Patient not taking.Reported on 06/18/2024 27-0.8 MG Oral Tablet Take 1 Tablet by mouth daily at noon. Active documented as of this encounter (statuses as of 07/16/2024) Active Problems Problem Noted Date Diagnosed Date Supervision of normal first , antepartu m 04/13/2024 MICHAEL (generalized anxiety disorder) 10/01/2020 Estimated Date of Delivery Comme nts Yes 11/02/2024 Based on Ultraso und documented as of this encounter (statuses as of 07/16/2024) Resolved Problems Problem Noted Date Diagnosed Date Resolved Date Migraine with aura 10/29/2021 Mastitis of left breast unre lated to or 10/20/2018 10/20/2018 Passive smoke exposure 11/23/201310/01 Other allergic rhinitis 11/23/201309/03 Overview (04/26/2017): ICD-10 update of inactive term Routine child health exam 2000 VACCIN FOR DISEASE NEC 08/31/200007/17 documented as of this encounter (statuses as of 07/16/2024) Immunizations Name Administration Dates Next Due DTaP [...] money to get more. Never true 06/04/2024 [place] Depression Scale Answer Date Recorded [place] Depression Scale Total 6 04/13/2024 The thought [...] ages 0-17 years) Not on file 06/04/2024 Estimated Date of Delivery Comme nts [...] Sign Reading Time Taken Comments Blood Pressure 100/60 07/16/2024 7:49 AM EST Pulse - - Temperature - - Respiratory Rate - - Oxygen Saturation - - Inhaled Oxygen Concentration - - Weight 67.6 kg (149 lb) 07/16/2024 7:49 AM EST Height - - Body Mass Index 24.79 05/11/2024 4:33 PM EST documented in this encounter Progress Notes * Gay Marin PA-C - 07/16/2024 8:01 AM EST 24w3d Doing well overall. Has headache today and had one yesterday. Hx of migraines. BP normal. Pt statestook Tylenol yesterday and did help. Hasn't taken today but may try. Was taking Magnesium daily, but stopped as h/a better. Has neurology appointment end of week. Third tri labs pended for next visit Denies VB, LOF, contractions. + FM. RTCin 4 week Gay Marin PA-C * [place] Marie LPN - 07/16/2024 7:49 AM EST 24w3d Denies vaginal bleeding/rom + movement documented in this encounter Plan of Treatment Upcoming Encounters Date Type Department Care Team (Late st Contact Info) Description 07/20/2024 11:05 AM EST Telemedicine Neurology [facility] [address] [place] [address] Trupti Srivastavagail [place], DO [address] [facility] [place] [address] 08/13/2024 8:30 AM EST Laboratory Laboratory, [facility] [address] [place] [phone] [facility] [address] [place] [address] 08/13/2024 8:45 AM EST Office Visit Gynecology/Obstetrics [facility] [address] [place] [address] Lamar Robles, DNP, CN [address] [place] [address] Scheduled Orders Name Type Priority Associated Diagnoses Orde r Schedule 50-G GESTATIONAL GLUCOSE, 1 HOUR Lab Routine Supervision of normal first , antepartum Expected: 08/16/2024 (Approximate), Expires: 07/16/2025 SYPHILIS ANTIBODY SCREEN WITH REFLEX TO RPR Lab Routine Supervision of normal first , antepartum Expected: 08/16/2024 (Approximate), Expires: 07/16/2025 CBC WITH WBC DIFFERENTIAL AND ANEMIA REFLEX WORKUP Lab Routine Supervision of normal first , antepartum Expected: 08/16/2024 (Approximate), Expires: 07/16/2025 Health Maintenance Due Date Last Done Comments Depression Screening 09/19/2021 09/19/2020 COVID-19 Vaccine ( [...] Supervision of normal first , antepartum- Primary documented in this encounter
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
--- OUTSIDE RECORDS SUMMARY | 2024-10-29 04:41 | External Medical Summary | Summary of Care ---
Author Name Unknown Organization [facility] Address [address] [place] [address] Phone [phone] Care Team Providers Care Market Research Coordinator Name Role Phone Unavailable Primary Care Provider Unavailabl e Reason for Referral * (Within 10 days (routine)) Specialty Diagnoses / Procedures Referred By Orlando t [facility] Antepartum anemia complicating Maribel Marin PA-C [address] [place] [address] Phone: tel: fax: Referral ID Status Reason Start Date Expiration Date Visits Re quested Visits Authorized Question Answer Referral Priority Within 10 days (routine) Where should this appointment be scheduled? [facility] Reason for Visit * Reason Onset Date Comments Abnormal Test Results 08/15/2024 Encounter Details Date Type Department Care Team (Late st Contact Info) Description 08/15/2024 Telephone Gynecology/Obstetrics [facility] [address] [place] [address] Maribel Marin PA-C [address] [place] [address] Abnormal Test Results Allergies Active Allergy Reactions Criticality Noted Date Comments Penicillin G Benzathine 04/22/2020 documented as of this encounter (statuses as of 08/15/2024) Medications Proventil HFA 108 (90 Base) MCG/ACT [...] as of this encounter (statuses as of 08/15/2024) Active Problems Problem Noted Date Diagnosed Date [...] as of this encounter (statuses as of 08/15/2024) Resolved Problems Problem Noted Date Diagnosed Date Resolved Date Migraine with aura 10/29/2021 2 Mastitis of left breast unre lated to or 10/20/2018 10/20/2018 Passive smoke exposure 11/23/201310/01 Other allergic rhinitis 11/23/201309/03 Overview (04/26/2017): ICD-10 update of inactive term Routine child health exam 2000 VACCIN FOR DISEASE NEC 08/31/200007/17 documented as of this encounter (statuses as of 08/15/2024) Immunizations Name Administration Dates Next Due DTaP [...] money to get more. Never true 06/04/2024 [place] Depression Scale Answer Date Recorded [place] Depression Scale Total 6 04/13/2024 The thought [...] as of this encounter Miscellaneous Notes * Addendum Note - Maribel Marin PA-C - 08/15/2024 3:33 PM ESTAddended by: MARIBEL MARIN on: 08/15/2024 03:33 PM Modules accepted: Orders * Telephone Encounter - Maribel Marin PA-C - 08/15/2024 3:33 PM EST Referral to blood management for IV iron placed. * Telephone Encounter - Diana Urena LPN - 08/15/2024 1:02 PM EST Pt called back agreeable to IV iron. * Telephone Encounter - Ava Cline RN - 08/15/2024 12:57 PM EST Attempted to call patient, no answer, LVM to return call. * Telephone Encounter - Maribel Marin PA-C - 08/15/2024 12:47 PM EST Please let her know. Passed glucola. She is anemic Hgb 10.1. Recommendation would be for IV iron given this level. If agreeable, would like to place referral. Maribel Marin PA-C documented in this encounter Plan of Treatment Upcoming Encounters Date Type Department Care Team (Thu Contact Info) Description 08/27/2024 8:30 AM EST Office Visit Gynecology/Obstetrics Karina Fonseca [address] [place] [address] Nicole Ramirez CRNP [address] [place] [address] 10/11/2024 11:30 AM EDT Telemedicine Neurology [facility] Jorge [place] [address] [place] [address] Sandra Srivastava, DO [address] [place] [address] Scheduled Referrals Name Type Priority Associated Diagnoses Orde r Schedule BLOOD MANAGEMENT REFERRAL Referral Within 10 days (routine) Antepartum anemia complicating Ordered: 08/15/2024 Health Maintenance Due Date Last Done Comments [...] Antepartum anemia complicating - Primary Anemia, antepartum documented in this encounter
--- OUTSIDE RECORDS SUMMARY | 2024-10-29 04:41 | External Medical Summary ---
Author Name Unknown Address Unknown Organization K01:[facility] [place] [address] [facility] [address] Laboratory Report Ordering Provider Test Date Status MARCI LÓPEZ 08/13/2024 09:52:16 Final Observation Date Value Abnormality Reference (Units ) Status Treponema pallidum Ab [Presence] in Serum by Immunoassay 08/13/2024 09:52:16 Nonreactive Nonreactive Final No serologic evidence of syp hilis. No additional testing clinicially indicated at this time. Consider repeat testing in 2-4 weeks if acute or primary syphilis is suspected. Performing Location [facility] [place] - [address] [place] [address]
--- OUTSIDE RECORDS SUMMARY | 2024-10-29 04:41 | External Medical Summary | Summary of Care ---
Author Name Unknown Organization [facility] Address [address] [facility] [place] [address] Phone [phone] Care Team Providers Care Solar Sales Advisor Name Role Phone Unavailable Primary Care Provider Unavailabl e Reason for Visit * Reason Onset Date Comments TRIAGE 05/15/2024 Encounter Details Date Type Department Care Team (Late st Contact Info) Description 05/15/2024 New Patient Triage (PRODUCTION ASSEMBLY OPERATOR USE ONLY) Neurology [address] [place] [address] Cherrie Rodriguez RN TRIAGE Allergies Active Allergy Reactions Criticality Noted Date Comments Penicillin G Benzathine 04/22/2020 documented as of this encounter (statuses as of 06/06/2024) Medications Proventil HFA 108 (90 Base) MCG/ACT Inhalation Aerosol SolutionIndicati ons:Upper respiratory tract infection, unspecified type,Viral upper respiratory tract infection with cough Inhale 2 Puffs by mouth every 4 hours as needed for Congestion, Cough or Wheezing. 18 g 2 Active Additional Information Patient not taking.Reported on 04/03/2024 Polyethylene Glycol 3350 17 GM/SCOOP Oral Powder (Miralax) Take 17 g by mouth daily as needed for Constipation. 2 Active SUMAtriptan Succinate 100 MG Oral TabletIndication s:Migraine variant TAKE 1 TABLET AT ONSET OF HEADACHE, MAY REPEAT IN 2HOURS MAX DAILY DOSE OF 2 9 Tablet 2 4 Active Additional Information Patient not taking.Reported on 04/03/2024 27-0.8 MG Oral Tablet Take 1 Tablet by mouth daily at noon. Active documented as of this encounter (statuses as of 06/06/2024) Active Problems Problem Noted Date Diagnosed Date Supervision of normal first , antepartu m 04/13/2024 MICHAEL (generalized anxiety disorder) 10/01/2020 Estimated Date of Delivery Comme nts Yes 11/02/2024 Based on Ultraso und documented as of this encounter (statuses as of 06/06/2024) Resolved Problems Problem Noted Date Diagnosed Date Resolved Date Migraine with aura 10/29/2021 Mastitis of left breast unre lated to or 10/20/2018 10/20/2018 Passive smoke exposure 11/23/201310/01 Other allergic rhinitis 11/23/201309/03 Overview (04/26/2017): ICD-10 update of inactive term Routine child health exam 2000 VACCIN FOR DISEASE NEC 08/31/200007/17 documented as of this encounter (statuses as of 06/06/2024) Immunizations Name Administration Dates Next Due DTaP [...] money to get more. Never true 06/04/2024 [place] Depression Scale Answer Date Recorded [place] Depression Scale Total 6 04/13/2024 The thought [...] as of this encounter Progress Notes * Vaishnavi Anderson OSA - 06/06/2024 7:34 AM EST Pt scheduled * Yanci Perez PA-C - 05/20/2024 4:19 PM EST Does patient need to be seen?: Yes Modality: First available Urgency: Within 30 days (routine) Discussed care plan with patient or proxy?: Yes MyG message sent. Communicated with patient on Date (mm/dd/yyyy): 05/20/2024 at Time ([facility]): 1620 * Cherrie Rodriguez RN - 05/15/2024 9:08 PM EST New Patient Triage What is the diagnosis/reason for referral?: Supervision of normal first , antepartum [Z34.00] - Primary Migraine with aura, with intractable migraine, so stated, with status migrainosus [G43.111] Enter order ID here: [id number] Specialty specific documentation: Neuroscience: Neurology Migraines with aura; currently ; on imitrex prior to . Has tried Magnesium, Vitamin B2, Tylenol, and CoQ10 without relief. documented in this encounter Plan of Treatment Upcoming Encounters Date Type Department Care Team (Late st Contact Info) Description 06/18/2024 9:45 AM EST Imaging Radiology [facility] 2nd [facility] [address] [place] [address] 06/18/2024 11:30 AM EST Office Visit Gynecology/Obstetrics [facility] [address] [place] [address] Gay Marin PA-C [address] [place] [address] 07/20/2024 11:05 AM EST Telemedicine Neurology [facility] [place] [address] [facility] [place] [address] Sandra Srivastava DO [address] [place] [address] 11/05/2024 12:00 PM EDT Office Visit Gynecology/Obstetrics [facility] [address] [place] [address] Debbie Gutierrez CRNP [address] [place] [address] Health Maintenance Due Date Last Done Comments [...] 5 Years) and At-Risk Patients (6 to 64 Years) Aged Out No longer eligible based on patient's age to complete this topic documented as of this encounter Medical Devices Not on filedocumented as of this encounter
--- OUTSIDE RECORDS SUMMARY | 2024-10-29 04:41 | External Medical Summary | Summary of Care ---
Author Name Unknown Organization [facility] Address [address] [place] [address] Phone [phone] Care Team Providers Care Orientor Name Role Phone Unavailable Primary Care Provider Unavailabl e Reason for Visit * Reason Comments Return Visit Encounter Details Date Type Department Care Team (Late st Contact Info) Description 08/13/2024 8:45 AM EST Office Visit Gynecology/Obstetric s [facility] [address] [place] [address] Lamar Robles, DNP, CNM [address] [place] [address] Supervision of normal first , antepartum* Allergies Active Allergy Reactions Criticality Noted Date Comments Penicillin G Benzathine 04/22/2020 documented as of this encounter (statuses as of 08/13/2024) Medications Proventil HFA 108 (90 Base) MCG/ACT [...] as of this encounter (statuses as of 08/13/2024) Active Problems Problem Noted Date Diagnosed Date Menstrual migraine with status migrainosus, not intractable 07/20/2024 Migraine without aura and wi th status migrainosus, not intractable 07/20/2024 Supervision of normal first , antepartu m 04/13/2024 MICHAEL (generalized anxiety disorder) 10/01/2020 Estimated Date of Delivery Comme nts Yes 11/02/2024 Based on Ultraso und documented as of this encounter (statuses as of 08/13/2024) Resolved Problems Problem Noted Date Diagnosed Date Resolved Date Migraine with aura 10/29/2021 Mastitis of left breast unre lated to or 10/20/2018 10/20/2018 Passive smoke exposure 11/23/201310/01 Other allergic rhinitis 11/23/201309/03 Overview (04/26/2017): ICD-10 update of inactive term Routine child health exam 2000 VACCIN FOR DISEASE NEC 08/31/200007/17 documented as of this encounter (statuses as of 08/13/2024) Immunizations Name Administration Dates Next Due DTaP [...] Answer Date Recorded [place] Depression Scale Total 6 04/13/2024 The thought [...] Sign Reading Time Taken Comments Blood Pressure 102/62 08/13/2024 8:52 AM EST Pulse - - Temperature - - Respiratory Rate - - Oxygen Saturation - - Inhaled Oxygen Concentration - - Weight 72.8 kg (160 lb 9.6 oz) 08/13/2024 8:52 A M EST Height - - Body Mass Index 26.73 05/11/2024 4:33 PM EST documented in this encounter Progress Notes * Lamar Robles, JANNA, CNM - 08/13/2024 8:57 AM EST Antonella Charles is a 24 year old female here for her routine OB appointment at 28w3d Her Estimated Date of Delivery: 11/02/24 REVIEW OF SYSTEMS: She affirms movement. Denies vaginal bleeding, LOF, contractions, N/V, headaches Encouraged signing up for CBE and classes. She is no longer with FOB. Plans to have her mother in the delivery room PHYSICAL EXAM: Filed Vitals: 08/13/24 0852 BP: 102/62 Weight: 72.8 kg (160 lb 9.6 oz) +FHT 130 Fundal height 28cm ASSESSMENT/PLAN: (Z34.00) Supervision of normal first , antepartum (primary encounter diagnosis) - recommended flu vaccine - patient declines today - recommended tdap vaccine - patient declines today - recommended Covid vaccine due to increased risk of severe disease in . Patient declines. - planning to complete CBC, GTT , RPR today - paced prescription for a breast pump - is planning IUD for contraception - rhogam not needed d/t AB ps blood type - labor precautions and kick counts reviewed - RTO in 2 weeks Lamar Robles DNP, CNM * Carlotta White CMA - 08/13/2024 8:52 AM EST 28w3d Denies any concerns Declines TDAP documented in this encounter Plan of Treatment Upcoming Encounters Date Type Department Care Team (Late st Contact Info) Description 08/27/2024 8:30 AM EST Office Visit Gynecology/Obstetrics [facility] [address] [place] [address] Nicole Ramirez CRNP [address] [place] [address] 10/11/2024 11:30 AM EDT Telemedicine Neurology [facility] [place] [address] [facility] [place] [address] Sandra Srivastava, [address] [place] [address] Health Maintenance Due Date Last Done Comments Depression Screening 09/19/2021 09/19/2020 COVID-19 Vaccine (2023- season) 2024 Influenza Vaccine (FLU shot) (#1) [...]
--- OUTSIDE RECORDS SUMMARY | 2024-10-29 04:41 | External Medical Summary ---
Author Name Unknown Address Unknown Organization K01:[facility] [address] [place] [address] Laboratory Report Ordering Provider Test Date Status MARCI LÓPEZ 08/13/2024 09:52:16 Final Observation Date Value Abnormality Reference (Units ) Status Ferritin 08/13/2024 09:52:16 5 Below low normal 13- 150 (ng/mL) Final Performing Location [facility] - [address] [place] [address]
--- OUTSIDE RECORDS SUMMARY | 2024-10-29 04:41 | External Medical Summary | Summary of Care ---
Author Name Unknown Organization [facility] Address [address] [place] [address] Phone [phone] Care Team Providers Care Software Test Developer Name Role Phone Unavailable Primary Care Provider Unavailabl e Reason for Referral * (Within 10 days (routine)) Specialty Diagnoses / Procedures Referred By [place] t [facility] Antepartum anemia complicating Maribel Marin PA-C [address] [place] [address] Phone: tel: fax: Referral ID Status Reason Start Date Expiration Date Visits Re quested Visits Authorized Question Answer Referral Priority Within 10 days (routine) Where should this appointment be scheduled? [facility] Reason for Visit * Reason Onset Date Comments Abnormal Test Results 08/15/2024 Encounter Details Date Type Department Care Team (Late st Contact Info) Description 08/15/2024 Telephone Gynecology/Obstetrics [facility] [address] [place] [address] Maribel Marin PA-C [address] [place] [address] Abnormal Test Results Allergies Active Allergy Reactions [...] money to get more. Never true 06/04/2024 [place] Depression Scale Answer Date Recorded [place] Depression Scale Total 6 04/13/2024 The [...] Karina Fonseca [address] [place] [address] Nicole Ramirez CRNP [address] [place] [address] 10/11/2024 11:30 AM EDT Telemedicine Neurology [facility] [place] [address] [place] [address] Sandra Srivastava, DO [address] [place] [address] Scheduled Referrals Name Type Priority Associated Diagnoses [...]
--- OUTSIDE RECORDS SUMMARY | 2024-10-29 04:41 | External Medical Summary | Summary of Care ---
Author Name Unknown Organization [facility] Address [address] [facility] [place] [address] Phone [phone] Care Team Providers Care Bank Clerk Name Role Phone Unavailable Primary Care Provider Unavailabl e Reason for Visit * Reason Onset Date Comments Order Request 05/16/2024 Encounter Details Date Type Department Care Team (Late st Contact Info) Description 05/16/2024 Telephone Gynecology/Obstetrics [facility]on[facility] [address] [place] [address] Gay Marin PA-C [address] [place] [address] Order Request Allergies Active Allergy Reactions Criticality Noted Date Comments Penicillin G Benzathine 04/22/2020 documented as of this encounter (statuses as of 05/17/2024) Medications Proventil HFA 108 (90 Base) MCG/ACT [...] as of this encounter (statuses as of 05/17/2024) Active Problems Problem Noted Date Diagnosed Date Supervision of normal first , antepartu m 04/13/2024 MICHAEL (generalized anxiety disorder) 10/01/2020 Estimated Date of Delivery Comme nts Yes 11/02/2024 Based on Ultraso und documented as of this encounter (statuses as of 05/17/2024) Resolved Problems Problem Noted Date Diagnosed Date Resolved Date Migraine with aura 10/29/2021 Mastitis of left breast unre lated to or 10/20/2018 10/20/2018 Passive smoke exposure 11/23/201310/01 Other allergic rhinitis 11/23/201309/03 Overview (04/26/2017): ICD-10 update of inactive term Routine child health exam 2000 VACCIN FOR DISEASE NEC 08/31/200007/17 documented as of this encounter (statuses as of 05/17/2024) Immunizations Name Administration Dates Next Due DTaP [...] the money to buy more. Never true 03/30/20 24 Within the past 12 months, t he food you bought just didn't last and you didn't have money to get more. Never true 03/30/2024 [place] Depression Scale Answer Date Recorded [place] Depression Scale Total 6 04/13/2024 The thought of harming myself has occurred to me . Never 04/13/2024 Childcare Answer Date Recorded Do you feel overwhelmed with taking care of a child, family member or friend? No 03/30/2024 Does your family need help f inding childcare? (Household - for ages 0-17 years) Not on file 03/30/2024 Clothing Answer Date Recorded Have you been unable to get clothing when it was really needed? No 03/30/2024 Is your family able to get c lothes or diapers when needed? (Household - for ages 0-17 years) Not on file 03/30/2024 Personal Safety Answer Date Recorded Do you feel unsafe or have concerns for your saf ety? No 03/30/2024 Do you have concerns for you r family's safety? (Household - for ages 0-17 years) Not on file 03/30/2024 Utilities Answer Date Recorded Do you have trouble paying y our heating, water, or electric bill? No 03/30/2024 Is your family able to pay t he heat, water, or electric bill? (Household - for ages 0-17 years) Not on file 03/30/2024 Does your family have access to good internet? (Household - for ages 0-17 years) Not on file 03/30/2024 Employment Status Answer Date Recorded Are you unemployed or without regular income? No 03/30/2024 Does the household have a re gular source of income? (Household - for ages 0-17 years) Not on file 03/30/2024 Social Connections Answer Date Recorded How often do you feel lonely or isolated from th ose around you? Never 03/30/2024 Financial Resource Strain Answer Date R ecorded Do you have any trouble payi ng for your medications, or do you think you might in the future? No 03/30/2024 Does your family have troubl e paying for medicine? (Household - for ages 0-17 years) Not on file 03/30/2024 Transportation Needs Answer Date Record ed Do you have trouble getting a ride to medical visits or work? (Adult - for ages 18 years and over) Not on file 03/30/2024 Does your family have a hard time getting a ride to doctors visits? (Household - for ages 0-17 years) Not on file 03/30/2024 Has lack of transportation k ept you from medical appointments, meetings, work, or from getting things needed for daily living? Check all that apply. No 03/30/2024 Do you (or your family) have trouble finding or paying for a ride (transportation)? (Household - for ages 0-17 years) Not on file 03/30/2024 Housing Stability Answer Date Recorded Do you currently live in a s helter or have no steady place to sleep at night? No 03/30/2024 Do you think you are at risk of becoming homeless? (Adult - for ages 18 years and over) Not on file 03/30/2024 Does your family worry about paying for your home or becoming homeless? (Household - for ages 0-17 years) Not on file 0 03/30/2024 Are you homeless or worried that you might be in the future? No 03/30/2024 Are you (or your family) xochilt eless or worried that you might be in the future? (Household - for ages 0-17 years) Not on file Food Insecurity Answer Date Recorded Do you need food for this week? No 03/30/2024 Are you able to get enough f ood for your family? (Household - for ages 0-17 years) Not on file 03/30/2024 Does your family need food t his week? (Household - for ages 0-17 years) Not on file 03/30/2024 Do you always have enough fo od for your family? (Household - for ages 0-17 years) Not on file 03/30/2024 Estimated Date of Delivery Comme nts Yes 11/02/2024 Based on Ultraso und Sex and Gender Information Value Date Recorded Sex Assigned at Female 03/23/2023 11:02 AM EDT Legal Sex Female 5:40 AM EST Gender Identity Female 03/23/2023 11:02 AM EDT Sexual Orientation Straight 11/01/2019 8: 01 AM EDT documented as of this encounter Miscellaneous Notes * Telephone Encounter - Stephanie Millan OSA - 05/17/2024 8:10 AM EST Patient won't be 20 weeks until Jun 15. Messaged patient to move the so it can be the sameday as the ultrasound. * Telephone Encounter - Heidi Diaz RN - 05/16/2024 3:49 PM EST Will have Stephanie review. Order for anatomy is in * Telephone Encounter - Wendi Miles OSA - 05/16/2024 3:43 PM EST Pt called in she needs a order for US and an appointment to match her 06/11 documented in this encounter Plan of Treatment Upcoming Encounters Date Type Department Care Team (Late st Contact Info) Description 06/11/2024 9:00 AM EST [facility] [address] [place] [address] Gay Marin PA-C [address] [place] [address] 11/05/2024 12:00 PM EDT Office Visit Gynecology/Obstetrics Karina Fonseca [address] [place] [address] Debbie Gutierrez CRNP [address] [place] [address] Health Maintenance Due Date Last Done Comments [...]
--- OUTSIDE RECORDS SUMMARY | 2024-10-29 04:41 | External Medical Summary | Summary of Care ---
Author Name Unknown Organization [facility] Address [address] [facility] [place] [address] Phone [phone] Care Team Providers Care Head Bellhop Captain Name Role Phone Unavailable Primary Care Provider Unavailabl e Reason for Visit * Reason Onset Date Comments TRIAGE 05/15/2024 Encounter Details Date Type Department Care Team (Late st Contact Info) Description 05/15/2024 New Patient Triage (MOP WORKER USE ONLY) Neurology [address] [place] [address] Cherrie Rodriguez RN TRIAGE Allergies Active Allergy Reactions Criticality Noted Date Comments Penicillin G Benzathine 04/22/2020 documented as of this encounter (statuses as of 05/20/2024) Medications Proventil HFA 108 (90 Base) MCG/ACT [...] as of this encounter (statuses as of 05/20/2024) Active Problems Problem Noted Date Diagnosed Date Supervision of normal first , antepartu m 04/13/2024 MICHAEL (generalized anxiety disorder) 10/01/2020 Estimated Date of Delivery Comme nts Yes 11/02/2024 Based on Ultraso und documented as of this encounter (statuses as of 05/20/2024) Resolved Problems Problem Noted Date Diagnosed Date Resolved Date Migraine with aura 10/29/2021 Mastitis of left breast unre lated to or 10/20/2018 10/20/2018 Passive smoke exposure 11/23/201310/01 Other allergic rhinitis 11/23/201309/03 Overview (04/26/2017): ICD-10 update of inactive term Routine child health exam 2000 VACCIN FOR DISEASE NEC 08/31/200007/17 documented as of this encounter (statuses as of 05/20/2024) Immunizations Name Administration Dates Next Due DTaP [...] money to get more. Never true 03/30/2024 [place] Depression Scale Answer Date Recorded [place] Depression Scale Total 6 04/13/2024 The thought [...] as of this encounter Progress Notes * Yanci Perez PA-C - 05/20/2024 4:19 PM EST Does patient need to be seen?: Yes Modality: First available Urgency: Within 30 days (routine) Discussed care plan with patient or proxy?: Yes [email or web address] message sent. Communicated with patient on Date (mm/dd/yyyy): 05/20/2024 at Time ([facility]): 1620 * Cherrie Rodriguez RN - 05/15/2024 9:08 PM EST New Patient Triage What is the diagnosis/reason for referral?: Supervision of normal first , antepartum [Z34.00] - Primary Migraine with aura, with intractable migraine, so stated, with status migrainosus [G43.111] Enter order ID here: [id number] Specialty specific documentation: Neuroscience: Neurology Migraines with aura; currently ; on imitrex prior to . Has tried Magnesium, Vitamin B2, Tylenol, and CoQ10 without relief. documented in this encounter Plan of Treatment Upcoming Encounters Date Type Department Care Team (Late st Contact Info) Description 06/18/2024 9:45 AM EST Imaging Radiology [facility]nd [facility] [address] [facility] [place] [address] 06/18/2024 11:30 AM EST Office Visit Gynecology/Obstetrics [facility] [address] [facility] [place] [address] Gay Marin PA-C [address] [place] [address] 11/05/2024 12:00 PM EDT Office Visit Gynecology/Obstetrics Karina Fonseca [address] [place] [address] Debbie Gutierrez CRNP [address] [place] [address] Health Maintenance Due Date Last Done Comments [...]
--- OUTSIDE RECORDS SUMMARY | 2024-10-29 04:41 | External Medical Summary ---
Author Name Unknown Address Unknown Organization K01:[facility] - [address] [place] [address] Laboratory Report Ordering Provider Test Date Status MARCI LÓPEZ 08/13/2024 09:52:16 Final Observation Date Value Abnormality Reference (Units ) Status Iron 08/13/2024 09:52:16 29 Below low normal 33-151 (ug/dL) Final Iron-binding capacity 08/13/2024 09:52:16 613 Above high normal 250-425 (ug/dL) Final Transferrin Sat % 08/13/2024 09:52:16 5 Below low normal 15-55 (%) Final Performing Location [facility] - [address] [place] [address]
--- OUTSIDE RECORDS SUMMARY | 2024-10-29 04:41 | External Medical Summary | Summary of Care ---
Author Name Unknown Organization [facility] Address [address] [place] [address] Phone [phone] Care Team Providers Care Security Systems Installer Name Role Phone Unavailable Primary Care Provider Unavailabl e Reason for Visit * Reason Comments Blood Management Program Encounter Details Date Type Department Care Team (Late st Contact Info) Description 08/15/2024 Documentation Patient Blood Management, [place] [address] [place] [address] Eliseo Douglass RN Allergies Active Allergy Reactions Criticality Noted Date Comments Penicillin G Benzathine 04/22/2020 documented as of this encounter (statuses as of 08/16/2024) Medications Proventil HFA 108 (90 Base) MCG/ACT [...] as of this encounter (statuses as of 08/16/2024) Active Problems Problem Noted Date Diagnosed Date [...] as of this encounter (statuses as of 08/16/2024) Resolved Problems Problem Noted Date Diagnosed Date Resolved Date Migraine with aura 10/29/2021 Mastitis of left breast unre lated to or 10/20/2018 10/20/2018 Passive smoke exposure 11/23/201310/01 Other allergic rhinitis 11/23/201309/03 Overview (04/26/2017): ICD-10 update of inactive term Routine child health exam 2000 VACCIN FOR DISEASE NEC 08/31/200007/17 documented as of this encounter (statuses as of 08/16/2024) Immunizations Name Administration Dates Next Due DTaP [...] money to get more. Never true 06/04/2024 [place] Depression Scale Answer Date Recorded [place] Depression Scale Total 6 04/13/2024 The thought [...] as of this encounter Progress Notes * Eliseo Douglass RN - 08/15/2024 3:36 PM EST REFERRAL - Patient Blood Management Name: Antonella Charles REQUESTING SERVICE: Carroll CORLEY REASON FOR REFERRAL: new evaluation outpatient, anemia in [place]: 11/02/24 Anemia Evaluation: Latest Reference Range & Units 08/13/24 09:52 HGB 12.0 - 15.3 g/dL 10.1 (L) HCT 36.0 - 45.2 % 33.4 (L) Iron 33 - 151 ug/dL 29 (L) Iron Binding Capacity 250 - 425 ug/dL 613 (H) Transferrin Saturation Percent 15 - 55 % 5 (L) Ferritin 13 - 150 ng/mL 5 (L) Immature Reticuloctye Fraction 2.5 - 20.6 % 32.7 (H) Reticulocyte Hemoglobin 29.7 - 37.4 pg 22.8 (L) (L): Data is abnormally low (H): Data is abnormally high Current Patient Medications: Medications that may impair hemostasis: none Medications that may impair iron absorption: none Patient Refused Blood Transfusion? (e.g. Muslim): no Possible Contributing Factors: iron deficiency Treatment Recommendations: IV iron per OB MTM guidelines. 08/15 - myG sent 08/16 - Patient returned myG, agreeable to IV iron at [facility]. OB MTM submitted. Thank you for allowing Blood Management to participate in the care of this patient. documented in this encounter Plan of Treatment Upcoming Encounters Date Type Department Care Team (Late st Contact Info) Description 08/27/2024 8:30 AM EST Office Visit Gynecology/Obstetrics [facility] [address] [place] [address] Nicole Ramirez CRNP [address] [place] [address] 10/11/2024 11:30 AM EDT Telemedicine Neurology [facility] [address] [facility] [place] [address] Sandra Srivastava DO [address] [place] [address] Health Maintenance Due Date Last Done Comments [...]
--- OUTSIDE RECORDS SUMMARY | 2024-10-29 04:41 | External Medical Summary | Summary of Care ---
Author Name Unknown Organization [facility] Address [address] [place] [address] Phone [phone] Care Team Providers Care Cardroom Supervisor Name Role Phone Unavailable Primary Care Provider Unavailabl e Reason for Referral * (Within 10 days (routine)) Specialty Diagnoses / Procedures Referred By Orlando t Referred To Contact Hyperbaric Medicine Diagnoses Antepartum anemia complicating Maribel Marin PA-C [address] [place] [address] Phone: tel: fax: Referral ID Status Reason Start Date Expiration Date Visits Re quested Visits Authorized Question Answer Referral Priority Within 10 days (routine) Where should this appointment be scheduled? [facility] Reason for Visit * Reason Onset Date Comments Abnormal Test Results 08/15/2024 Encounter Details Date Type Department Care Team (Late st Contact Info) Description 08/15/2024 Telephone Gynecology/Obstetrics [facility] [address] [place] [address] Maribel Marin PA-C [address] [place] [address] Abnormal Test Results Allergies Active Allergy Reactions [...] to get more. Never true 06/04/2024 [place] Depression Scale Answer Date Recorded [place] Depression Scale Total 6 04/13/2024 The thought [...] Karina Fonseca [address] [place] [address] Nicole Ramirez CRNP [address] [place] [address] 10/11/2024 11:30 AM EDT Telemedicine Neurology [facility] [place] [address] [place] [address] Sandra Srivastava, DO [address] [place] [address] Scheduled Referrals Name Type Priority Associated Diagnoses [...]
--- OUTSIDE RECORDS SUMMARY | 2024-10-29 04:41 | External Medical Summary ---
Author Name Unknown Address Unknown Organization [id number]:[facility] [place] [address] [place] [address] Laboratory Report Ordering Provider Test Date Status MARCI LÓPEZ 08/13/2024 09:52:16 Final Observation Date Value Abnormality Reference (Units ) Status Creatinine 08/13/2024 09:52:16 0.5 0.5-1.0 (mg/dL) Final Glomerular filtration rate/1.73 sq M.predicted [Volume Rate/Area] in Serum, Plasma or Blood by Creatinine-based formula (CKD-EPI) 08/13/2024 09:52:16 >90 >=60 (mL/min) Final eGFR is calculated based on the CKD-EPI 2020 equation. Performing Location [facility] [place] [address] [place] [address]
--- OUTSIDE RECORDS SUMMARY | 2024-10-29 04:41 | External Medical Summary | Summary of Care ---
Author Name Unknown Organization [facility] Address [address] [facility] [place] [address] Phone [phone] Care Team Providers Care Pressfitter Name Role Phone Unavailable Primary Care Provider Unavailabl e Reason for Visit * Reason Comments Return Visit Encounter Details Date Type Department Care Team (Late st Contact Info) Description 06/18/2024 11:30 AM EST Office Visit Gynecology/Obstetric s Karina Fonseca [address] [place] [address] Gya Marin PA-C [address] [place] [address] Supervision of normal first , antepartum* Allergies Active Allergy Reactions Criticality Noted Date Comments Penicillin G Benzathine 04/22/2020 documented as of this encounter (statuses as of 06/18/2024) Medications Proventil HFA 108 (90 Base) MCG/ACT [...] as of this encounter (statuses as of 06/18/2024) Active Problems Problem Noted Date Diagnosed Date Supervision of normal first , antepartu m 04/13/2024 MICHAEL (generalized anxiety disorder) 10/01/2020 Estimated Date of Delivery Comme nts Yes 11/02/2024 Based on Ultraso und documented as of this encounter (statuses as of 06/18/2024) Resolved Problems Problem Noted Date Diagnosed Date Resolved Date Migraine with aura 10/29/2021 Mastitis of left breast unre lated to or 10/20/2018 10/20/2018 Passive smoke exposure 11/23/201310/01 Other allergic rhinitis 11/23/201309/03 Overview (04/26/2017): ICD-10 update of inactive term Routine child health exam 2000 VACCIN FOR DISEASE NEC 08/31/200007/17 documented as of this encounter (statuses as of 06/18/2024) Immunizations Name Administration Dates Next Due DTaP [...] money to get more. Never true 06/04/2024 [place] Depression Scale Answer Date Recorded [place] Depression Scale Total 6 04/13/2024 The thought [...] Sign Reading Time Taken Comments Blood Pressure 120/70 06/18/2024 11:27 AM EST Pulse - - Temperature - - Respiratory Rate - - Oxygen Saturation - - Inhaled Oxygen Concentration - - Weight 62.8 kg (138 lb 6.4 oz) 06/18/2024 11:27 AM EST Height - - Body Mass Index 23.03 05/11/2024 4:33 PM EST documented in this encounter Progress Notes * Gay Marin PA-C - 06/18/2024 12:22 PM EST 20w3d Anatomy today, no concerns. Reviewed with her at time of appointment as final report back. Headaches better. Plans to keep scheduled follow up appointment with Neurology. Denies VB, LOF RTC in 4 weeks Gay Marin PA-C * Carlotta White CMA - 06/18/2024 11:29 AM EST 20w3d Denies any concerns documented in this encounter Plan of Treatment Upcoming Encounters Date Type Department Care Team (Late st Contact Info) Description 07/20/2024 11:05 AM EST Telemedicine Neurology [facility] [address] [facility] [place] [address] Sandra Srivastava, DO [address] [facility] [place] [address] 11/05/2024 12:00 PM EDT Office Visit Gynecology/Obstetrics Karina Fonseca [address] [place] [address] Debbie Gutierrez CRNP [address] [place] [address] Health Maintenance Due Date Last Done Comments [...]
--- OUTSIDE RECORDS SUMMARY | 2024-10-29 04:41 | External Medical Summary ---
Author Name Unknown Address Unknown Organization K01:[facility]ORY [facility] [place] - [facility] [address] [facility] [place]. [facility] [address] Laboratory Report Ordering Provider Test Date Status MARCI LÓPEZ 08/13/2024 09:52:16 Final Observation Date Value Abnormality Reference (Units ) Status Retic, % (auto) 08/13/2024 09:52:16 2.21 Above high normal 0.80-1.90 (%) Final Reticulocytes, Absolute 08/13/2024 09:52:16 84.2 31.3-100.1 (K/uL) Final Reticulocyte fraction, immature 08/13/2024 09:52:16 32.7 Above high normal 2.5-20.6 (%) Final Reticulocyte HGB 08/13/2024 09:52:16 22.8 Below low normal 29.7-37.4 (pg) Final Performing Location LABORATORY [facility] [place] - [address] [facility] [address]
--- OUTSIDE RECORDS SUMMARY | 2024-10-29 04:41 | External Medical Summary ---
Author Name Unknown Address Unknown Organization K0G[facility] [address] [place] [address] Laboratory Report Ordering Provider Test Date Status MARCI LÓPEZ 08/13/2024 09:52:16 Final Observation Date Value Abnormality Reference (Units ) Status Glucose [Moles/volume] in Serum or Plasma --1 hour post 50 g glucose PO 08/13/2024 09:52:16 108 70-129 (mg/dL) Final Performing Location [facility] - [address] [place] [address]
--- OUTSIDE RECORDS SUMMARY | 2024-10-29 04:41 | External Medical Summary | Summary of Care ---
Author Name Unknown Organization [facility] Address [address] [place] [address] Phone [phone] Care Team Providers Care Bus Driver School Name Role Phone Unavailable Primary Care Provider Unavailabl e Reason for Visit * Reason Comments Outpatient Testing Encounter Details Date Type Department Care Team (Late st Contact Info) Description 08/13/2024 8:30 AM EST Laboratory Laboratory, [facility] [address] [facility] [phone] [facility] [address] Supervision of normal first , antepartum Allergies Active Allergy Reactions Criticality Noted Date [...] money to get more. Never true 06/04/2024 [place] Depression Scale Answer Date Recorded [place] Depression Scale Total 6 04/13/2024 The thought [...] 08/27/2024 8:30 AM EST [facility] [address] [place] [address] TristanerNicole CRNP [address] [place] [address] 10/11/2024 11:30 AM EDT Telemedicine Neurology [facility] [address] [facility] [place] [address] Sandra Srivastava DO [address] [place] [address] Pending Results Name Type Priority Associated Diagnoses Date /Time SYPHILIS ANTIBODY SCREEN WITH REFLEX TO RPR Lab Routine Supervision of normal first , antepartum 08/13/2024 9:52 AM EST CBC WITH WBC DIFFERENTIAL AND ANEMIA REFLEX WORKUP Lab Routine Supervision of normal first , antepartum 08/13/2024 9:52 AM EST SYPHILIS ANTIBODY SCREEN Lab Routine Supervision of normal first , antepartum 08/13/2024 9:52 AM EST ANEMIA CBC Lab Routine Supervision of normal first , antepartum 08/13/2024 9:52 AM EST DIFFERENTIAL, AUTOMATED Lab Routine Supervision of normal first , antepartum 08/13/2024 9:52 AM EST ANEMIA REFLEX CHEMISTRY HOLD Lab Routine Supervision of normal first , antepartum 08/13/2024 9:52 AM EST Health Maintenance Due Date Last Done Comments [...] Procedure Name Priority Date/Time Associated Diagnosis Comments 50-G GESTATIONAL GLUCOSE, 1 HOUR Routine 08/13/2024 9:52 AM EST Supervision of normal first , antepartum documented in this encounter Results * 50-G GESTATIONAL GLUCOSE, 1 HOUR (08/13/2024 9:52 AM EST) 50-g Gestational Glucose, 1 Hour 108 70 - 129 mg/dL 08/13/2024 10:57 AM EST LABORATORY [facility] Blood Venous blood specimen / Unknown Venipuncture / Unknown 08/13/2024 9:52 AM EST 08/13/2024 9:52 AM EST us Gay Marin PA-C LAB BLOOD ORDERABLES Final R esult LABORATORY [facility] [facility] [place] [address] documented in this encounter Visit Diagnoses Diagnosis Supervision of normal first , antepartum documented in this encounter
--- OUTSIDE RECORDS SUMMARY | 2024-10-29 04:41 | External Medical Summary | Summary of Care ---
Author Name Unknown Organization [facility] Address [address] [facility] [address] Phone [phone] Care Team Providers Care Product Design Engineer Name Role Phone Unavailable Primary Care Provider Unavailabl e Reason for Visit * Reason Onset Date Comments Order Request 05/16/2024 Encounter Details Date Type Department Care Team (Late st Contact Info) Description 05/16/2024 Telephone Gynecology/Obstetrics [facility] [address] [place] [address] Gay Marin PA-C [address] [place] [address] Order Request Allergies Active Allergy Reactions Criticality [...] money to get more. Never true 03/30/2024 [place] Depression Scale Answer Date Recorded [place] Depression Scale Total 6 04/13/2024 The thought [...] 06/11/2024 9:00 AM EST [facility] [address] [place] [address] Gay Marin PA-C [address] [place] [address] 11/05/2024 12:00 PM EDT Office Visit Gynecology/Obstetrics Karina Fonseca [address] [place] [address] Debbie Gutierrez CRNP [address] [place] [address] Health Maintenance Due Date Last Done Comments [...]
--- OUTSIDE RECORDS SUMMARY | 2024-10-29 04:42 | External Medical Summary | Summary of Care ---
Author Name Unknown Organization [facility] Address [address] [place] [address] Phone [phone] Care Team Providers Care Hand Stone Polisher Name Role Phone Unavailable Primary Care Provider Unavailabl e Encounter Details Date Type Department Care Team (Late st Contact Info) Description 05/09/2024 Telephone Gynecology/Obstetrics [facility] [address] [place] [phone] Truong Hyman MD [address] [place] [address] Allergies Active Allergy Reactions Criticality Noted Date Comments Penicillin G Benzathine 04/22/2020 documented as of this encounter (statuses as of 05/14/2024) Medications Proventil HFA 108 (90 Base) MCG/ACT [...] as of this encounter (statuses as of 05/14/2024) Active Problems Problem Noted Date Diagnosed Date Supervision of normal first , antepartu m 04/13/2024 MICHAEL (generalized anxiety disorder) 10/01/2020 Estimated Date of Delivery Comme nts Yes 11/02/2024 Based on Ultraso und documented as of this encounter (statuses as of 05/14/2024) Resolved Problems Problem Noted Date Diagnosed Date Resolved Date Migraine with aura 10/29/2021 Mastitis of left breast unre lated to or 10/20/2018 10/20/2018 Passive smoke exposure 11/23/201310/01 Other allergic rhinitis 11/23/201309/03 Overview (04/26/2017): ICD-10 update of inactive term Routine child health exam 2000 VACCIN FOR DISEASE NEC 08/31/200007/17 documented as of this encounter (statuses as of 05/14/2024) Immunizations Name Administration Dates Next Due DTaP [...] money to get more. Never true 03/30/2024 [place] Depression Scale Answer Date Recorded [place] Depression Scale Total 6 04/13/2024 The thought [...] encounter Miscellaneous Notes * Telephone Encounter - Ava Cline RN - 05/14/2024 10:32 AM EST Patient was seen in office by provider on 05/11. * Telephone Encounter - Diana Urena LPN - 05/09/2024 8:32 AM EST Pt called in with migraine for 3 days. Pt has taken tylenol, migraine cocktail, increased water. Ptsaid her vision in right eye is distorted , but she has always had that issue with migraines and her right eye. Pt was in Imitrex for migraines prior to . Pt denies any VB, LOF or Right Quadpain.I let pt know we needed to discuss with dr hyman and will let pt know recommendations. Please review and advise documented in this encounter Plan of Treatment Upcoming Encounters Date Type Department Care Team (Late st Contact Info) Description 06/11/2024 9:00 AM EST Office Visit Gynecology/Obstetrics Karina Fonseca [address] [place] [address] Gay Marin PA-C [address] [place] [address] 11/05/2024 12:00 PM EDT Office Visit Gynecology/Obstetrics Karina Mccormacks [address] [place] [address] Debbie Gutierrez CRNP [address] [place] [address] Health Maintenance Due Date Last Done Comments [...]
--- OUTSIDE RECORDS SUMMARY | 2024-10-29 04:42 | External Medical Summary | Summary of Care ---
Author Name Unknown Organization [facility] Address [address] [place] [address] Phone [phone] Care Team Providers Care Terrazzo Layer Helper Name Role Phone Unavailable Primary Care Provider Unavailabl e Reason for Referral * Evaluate & Treat - Unlimited Visits (Within 10 days (routine)) - Authorized Specialty Diagnoses / Procedures Referred By Orlando leonard Referred To Contact Neurology Diagnoses Supervision of normal first , antepartum Migraine with aura, with intractable migraine, so stated, with status migrainosus Gay Marin PA-C [address] [place] [address] Phone: tel: fax: Referral ID Status Reason Start Date Expiration Date Visits Requested Visits Authorized [id number] Authorized Specialty Services Required 05/11/[phone] Question Answer Referral Priority Within 10 days (routine) Where should this appointment be scheduled? [facility] This patient already has care established with Neurology. Do not place this order. Please use Ask A Doc to expedite care. Acknowledge Is this referral being placed for insurance purposes ONLY No, patient needs appointment [facility] REFERRAL QUESTIONS Headache Has the patient tried 1 abortive and 1 preventative medication? Yes Comments Migraines with aura; currently ; on imitrex prior to . Has tried Magnesium, Vitamin B2, Tylenol, and CoQ10 without relief. Reason for Visit * Reason Comments Return Visit Encounter Details Date Type Department Care Team (Late st Contact Info) Description 05/11/2024 4:30 PM EST Office Visit [facility] [address] [place] [address] Gay Marin PA-C [address] [place] [address] Supervision of normal first , antepartum*; Migraine with aura, with intractable migraine, so stated, with status migrainosus Allergies Active Allergy Reactions Criticality Noted Date Comments Penicillin G Benzathine 04/22/2020 documented as of this encounter (statuses as of 05/11/2024) Medications Proventil HFA 108 (90 Base) MCG/ACT [...] as of this encounter (statuses as of 05/11/2024) Active Problems Problem Noted Date Diagnosed Date Supervision of normal first , antepartu m 04/13/2024 MICHAEL (generalized anxiety disorder) 10/01/2020 Estimated Date of Delivery Comme nts Yes 11/02/2024 Based on Ultraso und documented as of this encounter (statuses as of 05/11/2024) Resolved Problems Problem Noted Date Diagnosed Date Resolved Date Migraine with aura 10/29/2021 2 Mastitis of left breast unre lated to or 10/20/2018 10/20/2018 Passive smoke exposure 11/23/201310/01 Other allergic rhinitis 11/23/2013 03/07/2020 Overview (04/26/2017): ICD-10 update of inactive term Routine child health exam 2000 VACCIN FOR DISEASE NEC 08/31/200007/17 documented as of this encounter (statuses as of 05/11/2024) Immunizations Name Administration Dates Next Due DTaP [...] money to get more. Never true 03/30/2024 [place] Depression Scale Answer Date Recorded [place] Depression Scale Total 6 04/13/2024 The thought [...] 03/30/2024 Does the household have a re lar [...] Sign Reading Time Taken Comments Blood Pressure 100/64 05/11/2024 4:33 PM EST Pulse - - Temperature - - Respiratory Rate - - Oxygen Saturation - - Inhaled Oxygen Concentration - - Weight 59.9 kg (132 lb) 05/11/2024 4:33 PM EST Height 165.1 cm (5' 5") 05/11/2024 4:33 PM EST Body Mass Index 21.97 05/11/2024 4:33 PM EST documented in this encounter Progress Notes * Gay Marin PA-C - 05/11/2024 5:27 PM EST 15w0d Declines genetics. Denies VB, LOF. Long standing history of migraines. Seem to be worsening in . Had imitrex for PRN relief outside of . Called in a few days ago d/t migraines. BP normal today. No headache today. Pt states has tried Tylenol PRN, Magnesium 400 mg and Vit B2 400 mg daily along with CoQ10 without relief most of the time. When she gets migraines mostly right side, can get some vision changes. Typically has to lie down, may take a few days to go away. Has never seen Neurology. Scheduled with them 05/2023, she had to cancel from review of chart. Would be interested in seeing them in future. Discussed ER precautions, if severe headache with other neurologic changes needs ER. Anatomy at 20 weeks RTC in 4 weeks Gay Marin PA-C documented in this encounter Nursing Notes * Ava Cline RN - 05/11/2024 4:30 PM EST Patient here for TAURUS 15w0d Patient having worsening migraines No pain today Denies VB Ava Cline RN documented in this encounter Plan of Treatment Upcoming Encounters Date Type Department Care Team (Late st Contact Info) Description 06/11/2024 9:00 AM EST Office Visit Gynecology/Obstetrics Karina Fonseca [address] [place] [address] Gay Marin PA-C [address] [place] [address] 11/05/2024 12:00 PM EDT Office Visit Gynecology/Obstetrics Karina Fonseca [address] [place] [address] Debbie Gutierrez CRNP [address] [place] [address] Scheduled Orders Name Type Priority Associated Diagnoses Orde r Schedule US PREG SINGLE/1ST GEST, 14 WEEKS OR LATER Medical Imaging Routine Supervision of normal first , antepartum Expected: 06/17/2024, Expires: 06/10/2025 Scheduled Referrals Name Type Priority Associated Diagnoses [...] Supervision of normal first , antepartum- Primary Migraine with aura, with intractable migraine, so stated, with status migrainosus documented in this encounter
--- NOTE | 2024-10-29 07:46 | History & Physical Report ---
Date of Service October 29, 2024 Assessment & Plan (1) Uterine contractions at greater than 20 weeks of gestation: Plan: patient is a 24-year-old at 39 weeks and 3 days of gestation presenting today with painful uterine contractions, Vital signs stable afebrile, heart rate reassuring, GBS negative, Patient has been ambulating, was checked by her nurse twice and cervix is unchanged at 1 cm dilated, 70% , head at -2 station, recommended IV fluid hydration and pain medication to rest and then recheck her cervix, patient agrees with plan, Continue to monitor closely, (2) with 39 completed weeks gestation: (3) Pain during labor: History of Present Illness Primary Care Provider: Gutierrez Tello DO Patient is 24 yo G1, P0 at 39 weeks and 3 days of gestation who has been feeling contractions since 2 AM this morning. They have been very uncomfortable for her and could not sleep. they have been every 4 to 6 minutes She rates pain 10 out of 10. she feels fine in between. She denies leakage of fluid or vaginal bleeding. She reports good movements. Her has been uncomplicated, GBS negative. Allergies Allergy/AdvReac Type Severity Reaction Status Date / Time Penicillins Allergy Severe THROAT Verified 10/29/24 04:43 SWELLS, RASH ON BACK Home Medications Medication Instructions Recorded Confirmed Type vits no.124-ferrous fum 1 tab PO DAILY 10/29/24 10/29/24 History 27 mg iron-folic acid 800 mcg tablet ( Vitamin) Patient History Medical History Migraine Bloating Constipation History of COVID-19 2020 > not hospitalized > taste and smell never same since Surgical History [place] teeth extracted Social History Smoking Status: Current every day smoker Tobacco Type: E-cigarettes / Vaping Cigarettes Per Day: advised npo status; Second Hand Exposure: No; Do You Dip or Chew Tobacco: No; Hx Alcohol Use: No Hx Substance Use: No Preferred Language: Romansh Communication Ability: Effective Basin Operator Required: No Beliefs That Will Affect Care: None marital status: Single Current Living Situation: Family Current Living Situation Comment: mom dad brother sister Other Information That Helps Us Care for You: No Feels Safe at Home: Yes Safety Concerns: Feels Safe At This Time Assistive Devices: None GLORY HOLE TENDER History No history of STDs, no history of chlamydia, gonorrhea, herpes Review of Systems as per Subjective / HPI Physical Exam Constitutional: WD/WN, vitals as above well developed, well nourished and comfortable Genitourinary: normal external appearance Manual OB Exam: + cervical dilation 1 cm, + cervical effacement 70% and + station -2 OB Exam Monitor Tracing: + external uterine monitor used and + category I Results & Data Vital Signs (Past 12 Hours) Vital Signs Temp Pulse Resp BP 10/29/24 07:13 105 H 10/29/24 07:13 125/69 10/29/24 04:57 104 H 10/29/24 04:57 122/77 10/29/24 04:42 18 10/29/24 04:42 36.7 C 18 10/29/24 04:40 97 H 150/76 H
[2024-10-29] MEDS: LACTATED RINGER'S 1,000 ML IV ONE (08:30)
[2024-10-29] MEDS: BUTORPHANOL TARTRATE 1 MG/ML VIAL IV PRN ×2 (08:36→11:00)
[2024-10-29] MEDS: LACTATED RINGER'S 1,000 ML IV SCH (09:49)
[2024-10-29] MEDS ORDERED: LACTATED RINGER'S 1,000 ML IV PRN (10:42)
[2024-10-29] MEDS ORDERED: LIDOCAINE 1% LOCAL 20 ML VIAL INFIL PRN (10:42)
[2024-10-29 11:56] LABS: Hematocrit (blood only) 37.6 % (37.0-47.0); Mean Corpuscular Hemoglobin 27.5 pg (25.0-34.0); Mean Corpuscular Hgb Conc 31.9 g/dL (32.0-36.0); Mean Platelet Volume 11.4 fL (9.4-12.4); Platelet Count 194 K/uL (130-400); RDW Coefficient of Variation 23.6 % (11.5-14.5); RDW Standard Deviation 71.8 fL (36.4-46.3); Red Blood Count 4.37 M/uL (4.20-5.40); White Blood Count 14.45 K/ul (4.8-10.8)
[2024-10-29] MEDS ORDERED: ePHEDrine sulfate 50 MG/ML AMP IV PRN (14:54)
[2024-10-29] MEDS ORDERED: BUPIVACAINE 0.25% PF 30 ML VIAL EPI PRN (14:54)
[2024-10-29] MEDS ORDERED: fentaNYL citrate PF 100 MCG/2 ML VIAL EPI PRN (14:54)
[2024-10-29] MEDS ORDERED: SODIUM CHLORIDE 0.9% PF INJ 10 ML VIAL EPI PRN (14:54)
[2024-10-29] MEDS ORDERED: NALOXONE HCL 0.4 MG/1 ML VIAL/CARP IV PRN (14:54)
[2024-10-29] MEDS ORDERED: NALOXONE HCL 1 MG in SODIUM CHLORIDE 0.9% 1,000 ML IV PRN (14:54)
[2024-10-29] MEDS ORDERED: LIDOCAINE 2% MPF LOCAL 5 ML VIAL EPI PRN (14:54)
[2024-10-29] MEDS ORDERED: diphenhydrAMINE 50 MG/ML VIAL IV PRN (14:54)
[2024-10-29] MEDS ORDERED: ROPIVACAINE 0.5% PF 5 MG/ML 20 ML VIAL EPI PRN (14:54)
[2024-10-29] MEDS ORDERED: NALBUPHINE HCL INJ 10 MG/ML AMP IV PRN (14:54)
[2024-10-29] MEDS ORDERED: fentANYL 2 MCG/ML BUPIVacaine 0.125%-NSS 100ML BAG EPI PRN (14:54)
--- NOTE | 2024-10-29 14:58 | Anesthesiology Consultation ---
Date of Service October 29, 2024 Assessment & Plan Chart Review Chart Review: Patient NOT seen in Pre Admission Testing and Acceptable Risk for Labor Epidural Consults Requested none ASA ASA2 Proposed Anesthesia Anesthesia Type: Labor Epidural Risk / Benefits Reviewed With: PT / POA / Parent / Guardian, Accepts Plan and Informed Consent Obtained History Height/Weight Height: 5 ft 5 in Weight: 83.915 kg Allergies Allergy/AdvReac Type Severity Reaction Status Date / Time Penicillins Allergy Severe THROAT Verified 10/29/24 04:43 SWELLS, RASH ON BACK Medications Home Medications Medication Instructions Recorded Confirmed Last Taken vits no.124-ferrous fum 1 tab PO DAILY 10/29/24 10/29/24 10/28/24 27 mg iron-folic acid 800 mcg tablet ( Vitamin) Active Medications Generic Name Dose Route Start Last Admin Trade Name Freq PRN Reason Stop Dose Admin Butorphanol Tartrate 2 mg 10/29/24 10:48 10/29/24 11:00 Butorphanol Tartrate 1 Mg/Ml Vial IV 11/28/24 07:41 2 mg Q4 PRN Administration pain Lactated Ringer's 1,000 mls @ 150 mls/hr 10/29/24 07:45 10/29/24 14:33 Lr IV 10/30/24 07:44 999 mls/hr .[id number] LISETTE Administration NPO Date Last Intake of Fluids: 10/29/24 Time Last Intake of Fluids: 14:30 Date Last Intake of Solids: 10/28/24 Time Last Intake of Solids: 21:00 Past Medical History Medical History Migraine Bloating Constipation History of COVID-2020 > not hospitalized > taste and smell never same since Exercise / Class Metabolic Activity 1 > 8 Run/Swim/Ski/Tennis Past Surgical History Surgical History [place] teeth extracted Past Anesthesia History No Hx of Anesthesia Complications and No Family Hx of Anesthesia Complications History of PONV No Hx of PONV and No Hx of Motion Sickness Social History Smoking Status: Current every day smoker tobacco type: e-cigarettes Smoking cigarettes per day: advised npo status Do You Dip or Chew Tobacco: No Hx Alcohol Use: No Alcohol type: wine alcohol intake frequency: a few times a month Hx Substance Use: No substance use type: does not use Review of Systems ROS Unobtainable: All systems reviewed & are unremarkable except as noted in HPI & below Physical Exam Vital Signs Last Vital Signs Temp 36.7 C 10/29/24 11:06 Pulse 117 H 10/29/24 14:54 Resp 20 10/29/24 11:06 BP 110/75 10/29/24 11:06 Pulse Ox 92 10/29/24 14:54 ENMT Mouth: no TMJ abnormality Thyromental Distance: > or= 3.5 Finger Breadths Mallampati Class: II Neck normal visual inspection and trachea midline; neck extension not limited Respiratory normal respiratory effort Auscultation: lungs clear to auscultation bilaterally Cardiovascular Rate/Rhythm: regular rate and regular rhythm Heart Sounds: no murmur Musculoskeletal Spine: normal cervical ROM Extremities: full ROM of extremities Neurologic moves all extremities Psychiatric Orientation: alert and oriented x 3 Testing Laboratory Results 10/29/24 11:33
[2024-10-29] MEDS: fentaNYL citrate PF 100 MCG/2 ML VIAL ONE (15:13)
--- NOTE | 2024-10-29 15:13 | History & Physical Report ---
Date of Service October 29, 2024 Assessment & Plan (1) Normal labor: Present on Admission?: Yes Plan Admit to L and D Regular diet x 3 then NPO/IV Fluids labs Pitocin as needed to augment labor pain meds including epidural as the pt desires Admission and Anticipated Discharge Date Admission Date: October 29, 2024 History of Present Illness Chief Complaint: pt 24 yr old IUP at 39 weeks 3 days in early labor , GBS Negative Primary Care Provider: Gutierrez Tello DO pt 24 yr old IUP at 39 weeks and 3 days came to L and D c/o regular uterine contractions every3 min. Denies vaginal bleeding, leaking of fluid per vagina etc. Reports good movement. Allergies Allergy/AdvReac Type Severity Reaction Status Date / Time Penicillins Allergy Severe THROAT Verified 10/29/24 04:43 SWELLS, RASH ON BACK Home Medications Medication Instructions Recorded Confirmed Type vits no.124-ferrous fum 1 tab PO DAILY 10/29/24 10/29/24 History 27 mg iron-folic acid 800 mcg tablet ( Vitamin) Patient History Medical History Migraine Bloating Constipation History of COVID-2020 > not hospitalized > taste and smell never same since Surgical History [place] teeth extracted Social History Smoking Status: Current every day smoker Tobacco Type: E-cigarettes / Vaping Cigarettes Per Day: advised npo status; Second Hand Exposure: No; Do You Dip or Chew Tobacco: No; Hx Alcohol Use: No Hx Substance Use: No Preferred Language: Moldovan Communication Ability: Effective Polish Compounder Required: No Beliefs That Will Affect Care: None marital status: Single Current Living Situation: Family Current Living Situation Comment: mom dad brother sister Other Information That Helps Us Care for You: No Feels Safe at Home: Yes Safety Concerns: Feels Safe At This Time Assistive Devices: None OB History Review of Systems All systems reviewed & are unremarkable except as noted in HPI & below as per Subjective / HPI as per Subjective / HPI as per Subjective / HPI as per Subjective / HPI Physical Exam Constitutional: WD/WN, vitals as above Genitourinary: OB Exam Abdomen: + heart tones (140s, Good variability, positive accelerations ), + vertex and + regular contractions Manual OB Exam: + cervical dilation 2 cm, + cervical effacement 70% and + station -2 OB Exam Monitor Tracing: + external FHT monitor used, + external uterine monitor used, + category I and + normal FHT variability Results & Data Vital Signs (Past 12 Hours) Vital Signs Temp Pulse Resp BP Pulse Ox O2 Del Method 10/29/24 15:01 98 10/29/24 15:01 127 H 10/29/24 14:56 100 10/29/24 14:56 95 H 10/29/24 14:55 Room Air 10/29/24 14:54 92 10/29/24 14:54 117 H 10/29/24 14:51 100 10/29/24 14:51 124 H 10/29/24 14:46 100 10/29/24 14:46 111 H 10/29/24 14:42 85 L 10/29/24 14:42 123 H 10/29/24 14:41 97 10/29/24 14:41 123 H 10/29/24 14:36 100 10/29/24 14:36 129 H 10/29/24 11:06 36.7 C 104 H 20 10/29/24 11:06 110/75 10/29/24 08:40 88 10/29/24 08:40 111/62 10/29/24 07:13 105 H 10/29/24 07:13 36.6 C 20 125/69 10/29/24 04:57 104 H 10/29/24 04:57 122/77 10/29/24 04:42 18 10/29/24 04:42 36.7 C 18 10/29/24 04:40 97 H 150/76 H
[2024-10-29] MEDS: LIDOCAINE 2%/EPINEPHRINE 1:200,000 20 ML PF ONE (15:14)
[2024-10-29] MEDS: fentANYL 2 MCG/ML BUPIVacaine 0.125%-NSS 100ML BAG ONE (15:14)
[2024-10-29] MEDS: BUPIVACAINE 0.25% PF 30 ML VIAL ONE (15:14)
[2024-10-29] MEDS: fentaNYL citrate PF 100 MCG/2 ML VIAL EPI STA (15:21)
[2024-10-29] MEDS: BUPIVACAINE 0.25% PF 30 ML VIAL EPI STA (15:21)
[2024-10-29] MEDS: SODIUM CHLORIDE 0.9% PF INJ 10 ML VIAL EPI STA (15:21)
[2024-10-29] MEDS: LIDOCAINE 2%/EPINEPHRINE 1:200,000 20 ML PF EPI STA (15:21)
[2024-10-29] MEDS: OXYTOCIN 30 UNITS/NSS 30 UNITS/500 ML BAG IV PRN (16:59)
[2024-10-29] MEDS ORDERED: OXYTOCIN 30 UNITS/NSS 30 UNITS/500 ML BAG IV PRN (17:20)
[2024-10-29] MEDS ORDERED: BENZOCAINE 20% SPRY 85 APPLN/85 GM CAN EXT PRN (17:20)
[2024-10-29] MEDS ORDERED: bisacodyL 10 MG SUPP PR PRN (17:20)
[2024-10-29] MEDS ORDERED: HYDROCORTISONE ACETATE 25 MG SUPP PR PRN (17:20)
[2024-10-29] MEDS ORDERED: DIPHTHER/TETAN/PERTUS Vaccine (Tdap, Adol/Adult) 0.5mL IM ONE (17:20)
--- NOTE | 2024-10-29 17:20 | Delivery Summary ---
Vaginal Delivery Summary Date of Service October 29, 2024 Vaginal Delivery Summary pt fully dilated and pushing, placed in dorsal lithotomy position, prepped and draped in usual fashion, pt pushed for few minutes, delivered alive viable female in BREE position with nuchal cord x 1 around the body reduced, placed the infant on the mothers abdomen, bulb suctioned nose and mouth, cord clamped and cut by the FOB. placenta delivered spontaneously and complete. second degree vaginal laceration noted, repaired with 2.0 Vicryl. IV Pitocin started. EBL: apgars: 8, 9 at 1 ad 5 min time of the delivery: 4:52 PM time of placenta : 5:02 PM
--- NOTE | 2024-10-29 17:48 | Anesthesia Procedure Note ---
Date of Service October 29, 2024 Anesthesia Post Epidural Note Vital Signs Vital Signs: Temp Pulse Resp BP Pulse Ox O2 Del Method 36.8 C 119 H 16 123/59 L 100 Room Air 10/29/24 16:30 10/29/24 17:46 10/29/24 17:33 10/29/24 17:46 10/29/24 17:46 10/29/24 14:55 Notes Mental Status: alert / awake / arousable and participated in evaluation Nausea / Vomiting: adequately controlled Pain: adequately controlled Airway Patency, RR, SpO2: stable & adequate BP & HR: stable & adequate Hydration State: stable & adequate Neuraxial Anesthesia: was administered and sensory block is resolving Anesthetic Complications: no major complications apparent Epidural: Removed without complications and With tip intact
[2024-10-29] MEDS: ePHEDrine sulfate 50 MG/ML AMP ONE (17:57)
[2024-10-29] MEDS: SODIUM CHLORIDE 0.9% PF INJ 10 ML VIAL ONE (17:57)
[2024-10-29] MEDS ORDERED: CALCIUM CARBONATE 500 MG CHEWABLE TAB PO PRN ×2 (18:54→18:58)
[2024-10-29] MEDS ORDERED: Nursing to Pharmacy Communication SCH (19:15)
[2024-10-29] MEDS: CALCIUM CARBONATE 500 MG CHEWABLE TAB PO PRN (19:22)
[2024-10-29] MEDS: DOCUSATE SODIUM 100 MG CAP PO SCH (21:35)
[2024-10-30] MEDS: ACETAMINOPHEN 325 MG TAB PO PRN (00:32)
[2024-10-30 06:09] LABS: Hematocrit (blood only) 33.7 % (37.0-47.0); Hemoglobin 10.7 g/dl (12.0-16.0); Mean Corpuscular Hemoglobin 27.3 pg (25.0-34.0); Mean Corpuscular Hgb Conc 31.8 g/dL (32.0-36.0); Mean Platelet Volume 10.9 fL (9.4-12.4); Platelet Count 168 K/uL (130-400); RDW Coefficient of Variation 23.9 % (11.5-14.5); RDW Standard Deviation 72.1 fL (36.4-46.3); Red Blood Count 3.92 M/uL (4.20-5.40); White Blood Count 16.18 K/ul (4.8-10.8)
[2024-10-30] MEDS: PRENATAL VITAMIN 1 TAB PO SCH (07:39)
[2024-10-30] MEDS: IBUPROFEN 600 MG TAB PO PRN (07:39)
[2024-10-30 09:41] VITALS: RESP 16
--- NOTE | 2024-10-30 10:32 | Obstetrical Progress Note ---
Date of Service October 30, 2024 Assessment & Plan (1) Normal course: PPD #1 pt doing well no complaints d/c home tomorrow Subjective Ambulation: ambulating normally Voiding: no voiding problems Passing Gas:: Yes Diet Tolerance:: regular diet Lochia:: Small Feeding Type:: breast feeding Review of Systems All systems reviewed & are unremarkable except as noted in HPI & below Physical Exam Constitutional WD/WN, vitals as above well developed and well nourished Eyes PERRL, conjunctivae normal, anicteric sclerae Neck trachea midline, no thyromegaly Respiratory normal respiratory effort, lungs clear to auscultation Auscultation: no crackles, no rales and no wheezes Cardiovascular RRR, no murmur, no edema Gastrointestinal (Abdomen) normal bowel sounds, soft, nontender, no hepatosplenomegaly Uterus is below umbilicus Musculoskeletal no cyanosis or clubbing, extremities motor strength 5/5 Skin no rashes, warm and dry Neurologic patellar DTR's 2+ bilat, sensation intact Psychiatric A+Ox3, euthymic affect Genitourinary normal external appearance Results & Data Vital Signs (Past 12 Hours) Vital Signs Temp Pulse Resp BP Pulse Ox O2 Del Method 10/30/24 07:25 36.7 C 102 H 16 138/74 98 Room Air 10/30/24 04:00 36.5 C 99 H 18 107/64 99 Room Air 10/30/24 00:30 37.1 C 99 H 18 108/67 100 Room Air
[2024-10-30] MEDS: bisacodyL 5 MG TABEC PO SCH (20:47)
[2024-10-31 06:41] LABS: Hematocrit (blood only) 32.1 % (37.0-47.0); Hemoglobin 10.1 g/dl (12.0-16.0)
[2024-10-31 07:39] LABS: Basophils # (auto) 0.04 K/uL (0.00-0.20); Basophils % (auto) 0.4 %; Eosinophils % (auto) 1.9 %; Hematocrit (blood only) 33.3 % (37.0-47.0); Hemoglobin 10.5 g/dl (12.0-16.0); Immature Granulocytes # (auto) 0.03 K/uL (0.01-0.20); Immature Granulocytes % (auto) 0.3 %; Lymphocytes # (auto) 2.67 K/uL (1.20-3.40); Lymphocytes % (auto) 25.4 %; Mean Corpuscular Hemoglobin 27.2 pg (25.0-34.0); Mean Corpuscular Hgb Conc 31.5 g/dL (32.0-36.0); Mean Corpuscular Volume 86.3 fL (80.0-100.0); Monocytes # (auto) 0.72 K/uL (0.11-0.59); Monocytes % (auto) 6.8 %; Neutrophils # (auto) 6.87 K/uL (1.40-6.50); Neutrophils % (auto) 65.2 %; Platelet Count 181 K/uL (130-400); RDW Coefficient of Variation 23.6 % (11.5-14.5); RDW Standard Deviation 72.1 fL (36.4-46.3); Red Blood Count 3.86 M/uL (4.20-5.40); White Blood Count 10.53 K/ul (4.8-10.8)
[2024-10-31 08:02] LABS: Albumin Globulin Ratio 1.3 (0.9-2); Albumin Level 2.9 gm/dl (3.4-5.0); BUN Creatinine Ratio 23.4 (10-20); Bilirubin,Total 0.4 mg/dl (0.2-1.0); Calcium 8.8 mg/dl (8.6-10.3); Creatinine Clr Calc Pharmacy 197.4 ml/min; Globulin 2.3 gm/dl (2.5-4.0); Potassium 3.6 mmol/L (3.5-5.1); Total Protein 5.2 gm/dl (6.0-8.3)
[2024-10-31 08:05] LABS: Polychromasia 1+
--- NOTE | 2024-10-31 08:29 | Obstetrical Progress Note ---
Date of Service October 31, 2024 Assessment & Plan Admission and Anticipated Discharge Date Admission Date: October 29, 2024 Subjective Patient is seen and examined. She feels well, no complaints. Ambulating without dizziness Voiding without difficulty Tolerating regular diet with out N&V Bleeding is minimal No fever/ chills/ CP/ SOB/ N&V/ Leg pain Bottle feeding without problems Vital Signs Temp Pulse Resp BP Pulse Ox O2 Del Method 10/31/24 03:15 36.4 C L 70 16 155/80 H Room Air 10/30/24 20:30 36.6 C 85 16 120/76 Room Air 10/30/24 15:40 36.6 C 97 H 16 117/71 10/30/24 12:15 36.5 C 96 H 16 142/80 H 99 Room Air Last BP: 110/70 Lab Results 10/29/24 10/30/24 10/31/24 Range/Units 11:33 05:45 06:22 WBC 14.45 H 16.18 H (4.8-10.8) K/ul RBC 4.37 3.92 L (4.20-5.40) M/uL Hgb 12.0 10.7 L 10.1 L (12.0-16.0) g/dl Hct 37.6 33.7 L 32.1 L (37.0-47.0) % MCV 86.0 86.0 (80.0-100.0) fL MCH 27.5 27.3 (25.0-34.0) pg MCHC 31.9 L 31.8 L (32.0-36.0) g/dL RDW Std Deviation 71.8 H 72.1 H (36.4-46.3) fL RDW Coeff of David 23.6 H 23.9 H (11.5-14.5) % Plt Count 194 168 (130-400) K/uL MPV 11.4 10.9 (9.4-12.4) fL Immature Gran % (Auto) % Neut % (Auto) % Lymph % (Auto) % [place] % (Auto) % Eos % (Auto) % Baso % (Auto) % Neut # (Auto) (1.40-6.50) K/uL Lymph # (Auto) (1.20-3.40) K/uL [place] # (Auto) (0.11-0.59) K/uL Eos # (Auto) (0.00-0.50) K/uL Baso # (Auto) (0.00-0.20) K/uL Immature Gran # (Auto) (0.01-0.20) K/uL Polychromasia Sodium (136-145) mmol/L Potassium (3.5-5.1) mmol/L Chloride (98-107) mmol/L Carbon Dioxide (21-32) mmol/L Anion Gap (3-11) BUN (6-23) mg/dl Creatinine (0.6-1.2) mg/dl Est Cr Clr Drug Dosing ml/min eGFR BUN/Creatinine Ratio (10-20) Glucose (70-99(Fasting)) mg/dl Calcium (8.6-10.3) mg/dl Total Bilirubin (0.2-1.0) mg/dl AST (13-39) U/L ALT (7-52) U/L Alkaline Phosphatase (34-104) U/L Total Protein (6.0-8.3) gm/dl Albumin (3.4-5.0) gm/dl Globulin (2.5-4.0) gm/dl Albumin/Globulin Ratio (0.9-2) Treponema pallidum Ab Negative (Negative) 10/31/24 Range/Units 07:26 WBC 10.53 (4.8-10.8) K/ul RBC 3.86 L (4.20-5.40) M/uL Hgb 10.5 L (12.0-16.0) g/dl Hct 33.3 L (37.0-47.0) % MCV 86.3 (80.0-100.0) fL MCH 27.2 (25.0-34.0) pg MCHC 31.5 L (32.0-36.0) g/dL RDW Std Deviation 72.1 H (36.4-46.3) fL RDW Coeff of David 23.6 H (11.5-14.5) % Plt Count 181 (130-400) K/uL MPV 11.0 (9.4-12.4) fL Immature Gran % (Auto) 0.3 % Neut % (Auto) 65.2 % Lymph % (Auto) 25.4 % [place] % (Auto) 6.8 % Eos % (Auto) 1.9 % Baso % (Auto) 0.4 % Neut # (Auto) 6.87 H (1.40-6.50) K/uL Lymph # (Auto) 2.67 (1.20-3.40) K/uL [place] # (Auto) 0.72 H (0.11-0.59) K/uL Eos # (Auto) 0.20 (0.00-0.50) K/uL Baso # (Auto) 0.04 (0.00-0.20) K/uL Immature Gran # (Auto) 0.03 (0.01-0.20) K/uL Polychromasia 1+ Sodium 139 (136-145) mmol/L Potassium 3.6 (3.5-5.1) mmol/L Chloride 109 H (98-107) mmol/L Carbon Dioxide 25 (21-32) mmol/L Anion Gap 5 (3-11) BUN 11 (6-23) mg/dl Creatinine 0.47 L (0.6-1.2) mg/dl Est Cr Clr Drug Dosing 197.4 ml/min eGFR 136.25 BUN/Creatinine Ratio 23.4 H (10-20) Glucose 77 (70-99(Fasting)) mg/dl Calcium 8.8 (8.6-10.3) mg/dl Total Bilirubin 0.4 (0.2-1.0) mg/dl AST 27 (13-39) U/L ALT 16 (7-52) U/L Alkaline Phosphatase 88 (34-104) U/L Total Protein 5.2 L (6.0-8.3) gm/dl Albumin 2.9 L (3.4-5.0) gm/dl Globulin 2.3 L (2.5-4.0) gm/dl Albumin/Globulin Ratio 1.3 (0.9-2) Treponema pallidum Ab (Negative) PE: General: Alert, orientedx3, NAD Abd: soft, NT, fundus firm, below Umbilicus Perineum intact, Lochia rubra minimal Ext; NT, no edema AP: 24 yo s/p , ppd# 2 VSS Afebrile doing well Continue routine care All questions were answered D/C home f/u in office Results & Data Vital Signs (Past 12 Hours) Vital Signs Temp Pulse Resp BP O2 Del Method 10/31/24 03:15 36.4 C L 70 16 155/80 H Room Air 10/30/24 20:30 36.6 C 85 16 120/76 Room Air
[2024-10-31 10:08] VITALS: BP 110/70; PULSE 83; TEMP 97.7; O2SAT 97
== END 2024-10-31 13:43 | disposition home health service (06) | DRG 807 ==
LOC: OPB 04:30 → 4S1 04:33 → 4E2 20:00
DX: O99.334 Smoking (tobacco) complicating childbirth; F17.290 Nicotine dependence, other tobacco product, uncomplicated; Z3A.39 39 weeks gestation of pregnancy; O70.1 Second degree perineal laceration during delivery; Z88.0 Allergy status to penicillin; Z37.0 Single live birth; O69.81X0 Labor and delivery complicated by cord around neck, without compression, not applicable or unspecified